=== PATIENT | female | born 1990 | race Caucasian/White ===

== ENCOUNTER → 2018-05-17 11:44 | Outpatient (CLI) | payer BC, SELFPAY ==
[2018-05-17 13:16] LABS: hCG Titer Quant., Serum 53141 mIU/mL (<9 non-preg)
== END ==
PROVIDERS: Family Provider Family Medicine; PCP Family Medicine; Referring Provider Obstetrics & Gynecology; Visit Provider Obstetrics & Gynecology
DX: Z78.9 Other specified health status (principal)
CPT/HCPCS: 36415; 84702

== ENCOUNTER → 2018-05-24 07:33 | Outpatient (CLI) | payer BC, SELFPAY ==
--- NOTE | 2018-05-24 07:54 | US_ITS ---
STUDY: FIRST TRIMESTER OBSTETRICAL ULTRASOUND REASON FOR EXAM: Female, 28 years old. dating. LMP: Unknown. TECHNIQUE: Transabdominal TECHNICAL QUALITY: Adequate. PRIOR ULTRASOUND: None. FINDINGS: There is visualization of a single gestational sac in a normal intrauterine position. The mean sac diameter (MSD) measures 2.97 cm, indicating an estimated gestational age (EGA) of 8 weeks, 2 days. The gestational sac shape is within normal limits. There is a visualized yolk sac. The yolk sac measures 3.2 mm. The placenta is non-visualized. There is visualization of a live embryo. The crown-rump length (CRL) measures 1.37 cm, indicating an estimated gestational age (EGA) of 7 weeks, 5 days. There is demonstrated cardiac activity with a heart rate of 147 bpm. The estimated gestation age (EGA) by US is 8 weeks, 0 days. The estimated date of delivery (JOSEPHINE) by US is January 03, 2019. The uterus measures 10.1 cm x 7.5 cm x 6.4 cm. There is a 9 mm x 11 mm x 9 mm fundal fibroid. The cervix is closed. The right ovary measures 4.5 cm x 2.7 cm x 2.9 cm. There is a 2.4 cm x 1.8 cm x 1.8 cm cyst in the right ovary. There is no visualized right adnexal mass or complex lesion. The left ovary measures 2.4 cm x 2.5 cm x 1.8 cm. There is no left ovarian cyst. There is no visualized left adnexal mass or complex lesion. There is no fluid in the cul de sac. US/Init OB < 14Wks US IMPRESSION: There is a single live intrauterine gestation with a mean gestational age of 8 weeks. 2.4 cm x 1.8 cm x 1.8 cm right ovarian cyst. Electronically Signed: Jez Rebollar MD at 9:03 EST Tel [phone], Service support ,
== END ==
PROVIDERS: Family Provider Family Medicine; PCP Family Medicine; Visit Provider Obstetrics & Gynecology
DX: Z34.01 Encounter for supervision of normal first pregnancy, first trimester (principal)
CPT/HCPCS: 76801

== ENCOUNTER → 2018-05-25 17:34 | Outpatient (CLI) | payer BC, SELFPAY ==
[2018-05-25 20:52] LABS: Chlamydia Trachomatis by PCR Negative (Negative); Neisserai gonorrhoeae by PCR Negative (Negative); Probe Check PASS; Sample Adequacy Control PASS; Specimen Processing Control PASS
[2018-06-02 10:19] LABS: HPV APTIMA, High Risk Negative (Negative)
[2018-06-02 10:25] LABS: HPV Reflexed? YES, CHARGE PATIENT
== END ==
PROVIDERS: Family Provider Family Medicine; PCP Family Medicine; Referring Provider Obstetrics & Gynecology; Visit Provider Obstetrics & Gynecology
DX: Z34.90 Encounter for supervision of normal pregnancy, unspecified, unspecified trimester (principal); Z12.4 Encounter for screening for malignant neoplasm of cervix
CPT/HCPCS: 87491; 87591; 87624; 88175; G0145

== ENCOUNTER → 2018-06-22 14:55 | Outpatient (CLI) | payer BC, SELFPAY ==
[2018-06-22 14:16] VITALS: BMI 20.4
[2018-06-22 16:52] LABS: Absolute Lymphocyte Count 2.58 X10^3/ul (0.83-4.51); Basophil# 0.02 X10^3/uL; Basophil% 0.2 % (0-1); Eosinophil# 0.13 X10^3/uL; Hematocrit 37.6 % (37-47); Hemoglobin 12.6 g/dl (12.0-15.0); Lymphocyte # 2.58 X10^3/ul (4.0); Lymphocyte % 20.5 % (19-41); Mean Corp Hgb Conc 33.5 g/gl (32-36); Mean Corpuscular Hgb 29.9 pg (27.0-32.0); Mean Corpuscular Volume 89.3 fL (81-99); Mean Platelet Vol. 10.5 fl (6.2-12.0); Monocyte# 0.81 X10^3/uL; Monocyte% 6.4 % (0-10); Neutrophil # 9.02 X10^3/uL (2.7-7.7); Neutrophil % 71.6 % (47-70); Platelet Count 320 K/mm3 (150-450); RBC Distribution Width CV 12.5 % (11.6-14.6); Red Blood Count 4.21 M/mm3 (4.2-5.4); White Blood Count 12.6 K/mm3 (4.4-11.0)
[2018-06-22 17:00] LABS: POSITIVE COUNT NO; POSITIVE DIFFERENTIAL NO; POSITIVE MORPHOLOGY NO
[2018-06-22 18:12] LABS: HIV - WCH Non-Reactive (Nonreactive); Rubella IgG > 500.0 IU/mL
[2018-06-24 08:12] LABS: HEPATITIS B SURFACE AG Negative (Negative)
[2018-06-25 02:33] LABS: Rapid Plasmin Reagin (RPR) NONREACTIVE (NONREACTIVE)
== END ==
PROVIDERS: Obstetrics & Gynecology; Family Provider Family Medicine; PCP Family Medicine; Referring Provider Nurse Practitioner Women's Health; Visit Provider Nurse Practitioner Women's Health
DX: Z34.91 Encounter for supervision of normal pregnancy, unspecified, first trimester (principal)
CPT/HCPCS: 36415; 85025; 86592; 86703; 86762; 86850; 86900; 87340

== ENCOUNTER → 2018-07-23 09:02 | Outpatient (CLI) | payer BC, SELFPAY ==
[2018-07-23 08:53] VITALS: BMI 20.4
== END ==
PROVIDERS: Family Provider Family Medicine; PCP Family Medicine; Referring Provider Obstetrics & Gynecology; Visit Provider Obstetrics & Gynecology
DX: Z34.90 Encounter for supervision of normal pregnancy, unspecified, unspecified trimester (principal)
CPT/HCPCS: 36415; 87086; 87088

== ENCOUNTER → 2018-10-05 07:57 | Outpatient (CLI) | payer BC, SELFPAY ==
[2018-09-17 08:59] VITALS: BMI 20.4
--- NOTE | 2018-10-05 08:02 | US_ITS ---
STUDY: SECOND AND THIRD TRIMESTER OBSTETRICAL ULTRASOUND - LIMITED REASON FOR EXAM: Female, 28 years old. Follow-up low-lying placenta. LMP: Unknown. Estimated due date January 03, 2019 provided by prior study. PRIOR ULTRASOUND: First or Mr. OB ultrasound May 24, 2018. TECHNIQUE: Transabdominal and Transvaginal, the latter used in particular to optimize detail at the cervix. TECHNICAL QUALITY: Adequate. FINDINGS: There is a single intrauterine fetus. The fetus is in a cephalic presentation. There is demonstrated cardiac activity with a heart rate of 127 bpm. There is a normal amniotic fluid volume. The largest amniotic fluid pocket measures 3.7 cm. The amniotic fluid index (ITALIA) is 10.1 cm. The placenta is posterior and low lying but not previa in location. The inferior margin of the placenta is 1.6 cm from the internal cervical os. There are Grade 0-1 placental changes. The cervix measures 4.1 cm in length and is closed. Bilateral adnexa are not visualized. BIOMETRY: BPD: 6.18 cm: 25 weeks, 1 days HC: 24.91 cm: 27 weeks, 1 days AC: 22.77 cm: 27 weeks, 2 days FL: 5.03 cm: 27 weeks, 1 days CI: 74% FL/BPD: 81% FL/AC: 22% HC/AC: 1.09 age by prior US: 27 weeks, 1 days. JOSEPHINE by prior US: January 03, 2019. age by current US: 26 weeks, 5 days. JOSEPHINE by current US: January 06, 2019. Estimated weight: 1008 grams, +/- 147 grams, 31 percentile. US/OB Limited With Biometrics IMPRESSION: 1. Single living intrauterine fetus in cephalic presentation. Estimated gestational age of 26 weeks, 5 days. Estimated delivery by today's study is January 06, 2019. 2. Grade 0-1 severe placenta is low lying, its inferior margin 1.6 cm from the internal cervical os. 3. Cervix is closed. Cervical length is 4.1 cm. 4. Normal amniotic fluid volume with an index of 10.1 cm. 5. Estimated weight is 1008 g. Electronically Signed: Clinton Irwin MD at 15:40 EDT , Service support ,
== END ==
PROVIDERS: Family Provider Family Medicine; PCP Family Medicine; Referring Provider Obstetrics & Gynecology; Visit Provider Obstetrics & Gynecology
DX: O44.42 Low lying placenta NOS or without hemorrhage, second trimester (principal); Z3A.00 Weeks of gestation of pregnancy not specified
CPT/HCPCS: 76816

== ENCOUNTER → 2018-10-15 09:30 | Outpatient (CLI) | payer BC, SELFPAY ==
[2018-10-15 08:44] VITALS: BMI 20.4
[2018-10-15 11:43] LABS: Absolute Lymphocyte Count 1.88 X10^3/ul (0.83-4.51); Absolute Neutrophil Count 10.5 X10^3/uL (2.0-7.7); Basophil# 0.02 X10^3/uL; Basophil% 0.1 % (0-1); Eosinophil# 0.27 X10^3/uL; Hematocrit 36.7 % (37-47); Hemoglobin 12.2 g/dl (12.0-15.0); Lymphocyte # 1.88 X10^3/ul (4.0); Lymphocyte % 13.8 % (19-41); Mean Corp Hgb Conc 33.2 g/gl (32-36); Mean Corpuscular Hgb 30.7 pg (27.0-32.0); Mean Corpuscular Volume 92.4 fL (81-99); Mean Platelet Vol. 10.1 fl (6.2-12.0); Monocyte% 6.6 % (0-10); Neutrophil % 76.8 % (47-70); Platelet Count 242 K/mm3 (150-450); RBC Distribution Width CV 13.4 % (11.6-14.6); RBC Distribution Width SD 44.7 fl (35.1-43.9); Red Blood Count 3.97 M/mm3 (4.2-5.4); White Blood Count 13.7 K/mm3 (4.4-11.0)
[2018-10-15 11:57] LABS: POSITIVE COUNT NO; POSITIVE DIFFERENTIAL NO; POSITIVE MORPHOLOGY NO
[2018-10-15 12:21] LABS: Glucose Challenge Gest 1H 50g 83 mg/dL (70-140)
== END ==
PROVIDERS: Family Provider Family Medicine; PCP Family Medicine; Referring Provider Obstetrics & Gynecology; Visit Provider Obstetrics & Gynecology
DX: Z34.90 Encounter for supervision of normal pregnancy, unspecified, unspecified trimester (principal)
CPT/HCPCS: 36415; 82950; 85025

== ENCOUNTER → 2018-11-18 12:23 | Outpatient (CLI) | payer BC, SELFPAY ==
[2018-11-12 08:52] VITALS: BMI 20.4
--- NOTE | 2018-11-18 12:30 | US_ITS ---
STUDY: SECOND AND THIRD TRIMESTER OBSTETRICAL ULTRASOUND - LIMITED REASON FOR EXAM: Female, 28 years old. Low-lying placenta. Obstetric sonography performed October 05, 2018 indicating low-lying placenta with margin located 1.6 cm from the internal cervical os. Follow-up exam. LMP: Not provided. PRIOR ULTRASOUND: October 05, 2018. TECHNIQUE: Transabdominal and Transvaginal TECHNICAL QUALITY: Adequate. FINDINGS: There is a single intrauterine fetus. The fetus is in a cephalic presentation. There is demonstrated cardiac activity with a heart rate of 139-158 bpm. There is a normal amniotic fluid volume. The largest amniotic fluid pocket measures 2.9 cm. The amniotic fluid index (ITALIA) is 9.1 cm. The placenta is posterior in location and is not low lying. On the current exam the placental margin is positioned approximately 3 cm away from the internal cervical os. There are Grade 1 placental changes. The maternal cervix is long and closed measuring 3.31 cm in length. BIOMETRY: BPD: 8.08 cm: 32 weeks, 4 days HC: 30.46 cm: 34 weeks, 0 days AC: 30.86 cm: 34 weeks, 6 days FL: 6.49 cm: 33 weeks, 4 days Age by LMP: 33 weeks, 3 days. JOSEPHINE by LMP: January 03, 2019. age by current US: 33 weeks, 6 days. JOSEPHINE by current US: December 31, 2018.. Estimated weight: 2351) grams, +/- 343 grams, 63 percentile. anatomic survey was not performed on this relatively late gestation. However, no incidental anatomic abnormality is identified. US/OB Limited With Biometrics IMPRESSION: Viable, alfaro, cephalic presentation intrauterine . Please see above. On this current exam the placental margin is positioned approximately 3 cm away from the internal cervical os. The maternal cervix is long and closed measuring 3.31 cm in length. Electronically Signed: Nikolas Hannah MD at 12:51 EDT , Service support ,
== END ==
PROVIDERS: Family Provider Family Medicine; PCP Family Medicine; Referring Provider Nurse Practitioner Women's Health; Visit Provider Nurse Practitioner Women's Health
DX: O44.43 Low lying placenta NOS or without hemorrhage, third trimester (principal); Z3A.32 32 weeks gestation of pregnancy
CPT/HCPCS: 76816

== ENCOUNTER → 2018-11-29 08:54 | Outpatient (CLI) | payer BC, SELFPAY ==
[2018-11-26 08:56] VITALS: BMI 20.4
--- NOTE | 2018-11-29 08:56 | US_ITS ---
STUDY: SECOND AND THIRD TRIMESTER OBSTETRICAL ULTRASOUND - LIMITED REASON FOR EXAM: Female, 28 years old. Routine survey. LMP: March 29, 2018. PRIOR ULTRASOUND: Comparison is made with prior study dated November 18, 2018. TECHNIQUE: Transabdominal TECHNICAL QUALITY: Adequate. FINDINGS: There is a single intrauterine fetus. The fetus is in a cephalic presentation. There is demonstrated cardiac activity with a heart rate of 143 bpm. There is a normal amniotic fluid volume. The largest amniotic fluid pocket measures 3.3 cm. The amniotic fluid index (ITALIA) is 12.4 cm. The placenta is posterior in location and is not low lying. There are Grade 1 placental changes. The cervix measures 3.1 cm in length. BIOMETRY: BPD: 8.5 cm: 34 weeks, 2 days HC: 31.59 cm: 35 weeks, 4 days AC: 32.48 cm: 36 weeks, 3 days FL: 6.85 cm: 35 weeks, 2 days Age by LMP: 35 weeks, 0 days. JOSEPHINE by LMP: January 03, 2019. age by prior US: 35 weeks, 3 days. JOSEPHINE by prior US: December 31, 2018. age by current US: 35 weeks, 3 days. JOSEPHINE by current US: December 31, 2018. Estimated weight: 2757 grams, +/- 403 grams, 69 percentile. US/OB Limited With Biometrics IMPRESSION: Single live intrauterine gestation with a mean gestational age of 35 weeks and 3 days. There has been good interval growth since prior study. Electronically Signed: Jez Rebollar, at 15:27 EDT , Service support ,
== END ==
PROVIDERS: Family Provider Family Medicine; PCP Family Medicine; Referring Provider Obstetrics & Gynecology; Visit Provider Obstetrics & Gynecology
DX: O26.843 Uterine size-date discrepancy, third trimester (principal); Z3A.35 35 weeks gestation of pregnancy
CPT/HCPCS: 76816

== ENCOUNTER → 2018-12-06 09:16 | Outpatient (CLI) | payer BC, SELFPAY ==
[2018-12-04 08:37] VITALS: BMI 20.4
[2018-12-04 15:55] LABS: Mucous, Urine 0 SEEN /hpf (<or=2+)
[2018-12-04 16:20] LABS: Color, Urine Yellow (Yellow); Glucose, Dipstick Normal (Normal); Ketone-Dipstick Negative (Negative); Leukocyte Esterase-Dipstick 25 /ul (Negative); Nitrite-Dipstick Negative (Negative); Occult Blood-Urine 25 /ul (Negative); Protein-Dipstick Negative (Negative); Urine Bilirubin Dipstick Negative (Negative); Urine Clarity Sl. Cloudy (Clear); Urine Urobilinogen Normal (Normal)
[2018-12-04 16:33] LABS: Bacteria 1+ /hpf (None Seen); Red Blood Cells-Urine 0-5 SEEN /hpf (0-5); Squamous Epithelial Cells - UA 5-10 SEEN /hpf (5-10); White Blood Cells 0-5 SEEN /hpf (0-5)
== END ==
PROVIDERS: Family Provider Family Medicine; PCP Family Medicine; Referring Provider Physician Assistant Medical; Visit Provider Physician Assistant Medical
DX: R30.0 Dysuria (principal)
CPT/HCPCS: 81001; 87086

== ENCOUNTER → 2018-12-08 17:15 | Outpatient (CLI) | payer BC, SELFPAY ==
[2018-12-08 08:51] VITALS: BMI 20.4
== END ==
PROVIDERS: Family Provider Family Medicine; PCP Family Medicine; Referring Provider Obstetrics & Gynecology; Visit Provider Obstetrics & Gynecology
DX: Z34.93 Encounter for supervision of normal pregnancy, unspecified, third trimester (principal)
CPT/HCPCS: 87081

== ENCOUNTER 2019-01-05 13:00 | Inpatient (IN) | payer BC, SELFPAY ==
[2018-11-12 08:52] VITALS: BMI 20.4
[2018-12-31 08:40] VITALS: BMI 20.4
[2019-01-05 12:35] VITALS: BMI 26.7
[2019-01-05 13:01] LABS: ROM Internal Control Test YES-OK TO RESULT pt. (Internal QC); ROM Patient Test POSITIVE (Negative)
[2019-01-05] MEDS: Lactated Ringers 1,000 ML 50 ML IV ×2 (14:05→21:13)
[2019-01-05 14:15] LABS: Absolute Lymphocyte Count 1.83 X10^3/ul (0.83-4.51); Absolute Neutrophil Count 11.7 X10^3/uL (2.0-7.7); Basophil# 0.02 X10^3/uL; Basophil% 0.1 % (0-1); Eosinophil# 0.08 X10^3/uL; Eosinophils% 0.5 % (0-5); Hematocrit 38.9 % (37-47); Hemoglobin 13.3 g/dl (12.0-15.0); Lymphocyte # 1.83 X10^3/ul (4.0); Lymphocyte % 12.4 % (19-41); Mean Corp Hgb Conc 34.2 g/gl (32-36); Mean Corpuscular Hgb 30.9 pg (27.0-32.0); Mean Corpuscular Volume 90.5 fL (81-99); Mean Platelet Vol. 10.7 fl (6.2-12.0); Monocyte# 0.96 X10^3/uL; Monocyte% 6.5 % (0-10); Neutrophil # 11.71 X10^3/uL (2.7-7.7); Neutrophil % 79.5 % (47-70); POSITIVE COUNT NO; POSITIVE DIFFERENTIAL NO; POSITIVE MORPHOLOGY NO; Platelet Count 223 K/mm3 (150-450); RBC Distribution Width CV 13.1 % (11.6-14.6); RBC Distribution Width SD 42.8 fl (35.1-43.9); White Blood Count 14.8 K/mm3 (4.4-11.0)
[2019-01-05] MEDS: Oxytocin 30 units/NS 500 ml 30 UNITS/500 ML IV.SOLN IV (15:11)
--- NOTE | 2019-01-05 17:42 | PCM.HP.OB ---
- Problem List (1) PROM with onset of labor more than 24 hours following rupture Status: Acute (2) Status: Acute Qualifiers: Comment: carrier screening declined. nl NIPT. afp nl. mfm ultrasound (3) Supervision of normal Status: Acute Qualifiers: Comment: PRR JOSEPHINE 01/03/19 girl name surprise Yaw History Date of Admission: 01/05/19 Final JOSEPHINE: 01/03/19 Gestational age: 40 Weeks and 2 Days History of this : This is a 28 year-old, at 40 weeks gestational age presents with spontaneous rupture membranes. Patient is unclear exactly when this started as it has been small amounts but most likely started Thursday afternoon. She denies any fevers abdominal pain is only had small amounts of clear loss of fluid but has a positive ROM plus test. She denies any significant contractions or vaginal bleeding admits good movement. she has Had an uncomplicated . Allergies No Known Allergies Allergy (Verified 01/05/19 12:36) Home Medications: Home Medications Vits [Prenatabs FA] 1 tab PO DAILY 01/05/19 Smoking Status: Never smoker Alcohol: None Number of Fetus(es): 1 Heart Tracin- 120 moderate variability reactive no decelerations category I tracing [place]wood: no regular History Past Pregnancies: Past Pregnancies Delivery Date Name GA/Weeks Outcome Route Weight Gender Labor Length Anesthesia Delivery Location Provider FOB Labs: Mom's Labs & Results 01/05/19 01/05/19 01/05/19 12:25 14:05 14:05 WBC 14.8 H RBC 4.30 Hgb 13.3 Hct 38.9 MCV 90.5 MCH 30.9 MCHC 34.2 RDW 13.1 RDW Differential 42.8 Plt Count 223 MPV 10.7 Immature Gran % (Auto) 1.000 H Neut % (Auto) 79.5 H Lymph % (Auto) 12.4 L Payne % (Auto) 6.5 Eos % (Auto) 0.5 Baso % (Auto) 0.1 Absolute Neuts (auto) 11.7 H Absolute Lymphs (auto) 1.83 Total Counted Not Reportable Vag Amniotic Fld Detect POSITIVE H Blood Type B POSITIVE Antibody Screen NEGATIVE Course Did the patient receive Yes care? Labs Blood Type: B RH: POSITIVE RPR/VDRL/Syphilis Nonreactive Rubella status Immune HbSAg Negative Date Done: 06/22/18 Chlamydia Negative Gonorrhea Negative HIV/AIDS Non-Reactive Group B Strep: Negative Current Obstetrical History Gestational Diabetes No Incompetent Cervix No Infertility No IUGR No Macrosomia No Hypertension/Pre-eclampsia No Placenta Previa/Abruption Yes: low lye on placenta but now up PTL/PROM No Uterine anomaly No Oligohydramnios No Polyhydramnios No Multiple gestation No Past Medical History Asthma No Diabetes No Hypertension No Heart disease No Mitral valve prolapse No Neurologic/Seizure disorder/ No Migraines Kidney disease No Liver disease No Varicosities No Clotting disorders/Hx of DVT No Thyroid Dysfunction No Other medical diseases No Psychiatric disorders No Major trauma No Abnormal PAP smear No Sleep apnea No Mammogram in the last 2 years No Medications Taken During Reason for taking medication [ none none] Social History Marital Status: Alleged father Yaw Hx Smoking No Smoking Status Never smoker What date/time did you last none use any of the above? Expected Infant Delivery Method: Spontaneous Vaginal Review of Systems Constitutional: Denies: Fever, Malaise Eyes: Denies: Blurred vision, Vision Change HEENT: Denies: Head Aches, Visual Changes Cardiovascular: Denies: Chest Pain, Palpitations Respiratory: Denies: Cough, Shortness of Breath, Wheezing Gastrointestinal: Denies: Abdominal Pain, Diarrhea, Nausea, Vomiting Genitourinary: Denies: Dysuria, Hematuria Musculoskeletal: Denies: Joint Pain, Muscle pain Skin: Denies: Lesions, Rash Neurological: Denies: Blurred vision, Focal weakness, Headaches Psychiatric: Denies: Anxiety, Depression Endocrine: Denies: Heat/ Cold Intolerance Hematologic/ Lymphatic: Denies: Easy Bruising, Easy Bleeding Physical Exam General: Alert, Cooperative, No apparent distress HEENT: Atraumatic, Normocephalic. Negative for: Thyromegaly, Lymphadenopathy Cardiovascular: Regular rate Lungs: Normal air movement Abdomen: Soft, Non Tender, Gravid Neurological: Deep Tendon Reflexes 2+/4 and Symmetrical, Neuro grossly intact. Negative for: Clonus [employer] RE[employer]ER: Normal external genitalia. Negative for: Vulvar lesions Estimated gestational size: Appropriate for gestational size Presentation: Cephalic Cervix Dilation (cm): 2 Assessment/Plan All Active Problems (Last Reviewed 12/31/18 @ 08:39 by Julieta Kent) PROM with onset of labor more than 24 hours following rupture (Acute) (Acute) Supervision of normal (Acute) AFP negative (Resolved) Low lying placenta nos or without hemorrhage, second trimester (Resolved) This is a 28 year-old, at 40 weeks gestational age with PROM. Patient presents PROM, plan management for , pitocin for IOL. Pain management: plans epidural. GBS negative. Management of any complications: No signs or symptoms of chorioamnionitis, discussed with the patient indications for starting antibiotics which include maternal fever plus an additional factor. Continue expectant management I have reviewed the [facility] and made any clinically relevant updates.
[2019-01-05] MEDS: fentaNYL-bupivacaine (epidural) 100 ML BAG EPIDURAL (22:05)
[2019-01-06] MEDS: Lactated Ringers 1,000 ML 50 ML IV (02:26)
[2019-01-06] MEDS: fentaNYL-bupivacaine (epidural) 100 ML BAG EPIDURAL (02:26)
[2019-01-06] MEDS: Ondansetron 4 MG/2 ML Vial IV (04:41)
[2019-01-06] MEDS: Oxytocin 30 units/NS 500 ml 30 UNITS/500 ML IV.SOLN 334 UNITS IV (05:08)
--- NOTE | 2019-01-06 05:39 | PCM.OPRPT ---
Problem List (1) PROM with onset of labor more than 24 hours following rupture Status: Acute (2) Status: Acute Qualifiers: Comment: carrier screening declined. nl NIPT. afp nl. mfm ultrasound (3) Supervision of normal Status: Acute Qualifiers: Comment: PRR JOSEPHINE 01/03/19 girl name surprise Yaw Vaginal Delivery Maternal Presentation: Spontaneous Rupture of Membranes 28-year-old G1, P0 at 40 weeks presents with spontaneous rupture membranes x48 hours with no onset of contractions. Amniotic Membrane Rupture Type: Spontaneous at home Amniotic Fluid Description: Clear Final JOSEPHINE: 01/03/19 Gestational age: 40 Weeks and 3 Days Date of Procedure: 01/06/19 Pre-Operative Diagnosis: ruptured membranes Post-Operative Diagnosis: Same Surgery/ Procedure Performed: Spontaneous Vaginal Delivery Type of Anesthesia: Epidural Description of Procedure: Patient began pushing and delivered the head in the [HIRAM] presentation. The head was delivered atraumatically . The anterior and posterior shoulders delivered without complication followed by the rest of the infant and the was placed on the maternal abdomen. Delayed cord clamping was employed for approximately 60 seconds. Cord was clamped and cut and gentle traction was applied to the cord and the placenta delivered spontaneously immediately following it was noted to be intact with three-vessel cord. The perineum and vagina were inspected and noted to have a second-degree perineal laceration that was repaired in the usual fashion with 3-0 Vicryl repeat. EBL was 300 cc. Patient and infant tolerated delivery well. Presentation: HIRAM Placental Delivery Description: Spontaneous Placenta Disposition: [facility] Cord Vessel Description: 3 Vessels Cord Entanglement: None Estimated Blood Loss: 300 Infant A gender: Female (1 minute): 8 (5 minute): 9 Episiotomy Description: None Laceration: Perineal Extension/lac, 2nd degree Medications given after delivery: IV Pitocin Complications: None
[2019-01-06] MEDS: Naproxen 250 MG Tablet 500 MG PO (06:01)
[2019-01-06] MEDS: Oxytocin 30 units/NS 500 ml 30 UNITS/500 ML IV.SOLN 167 UNITS IV (06:09)
[2019-01-06] MEDS: Methylergonovine 0.2 MG/ML Ampul IM (06:40)
[2019-01-06] MEDS: Lactated Ringers 500 ML 999 ML IV (07:10)
[2019-01-06] MEDS: Carboprost Tromethamine 250 MCG/ML Ampul IM (07:15)
[2019-01-06 07:57] LABS: Absolute Lymphocyte Count 1.23 X10^3/ul (0.83-4.51); Absolute Neutrophil Count 21.9 X10^3/uL (2.0-7.7); Eosinophil# 0.01 X10^3/uL; Hemoglobin 12.3 g/dl (12.0-15.0); Lymphocyte # 1.23 X10^3/ul (4.0); Lymphocyte % 5.2 % (19-41); Mean Corp Hgb Conc 34.2 g/gl (32-36); Mean Corpuscular Hgb 31.3 pg (27.0-32.0); Mean Corpuscular Volume 91.6 fL (81-99); Mean Platelet Vol. 10.9 fl (6.2-12.0); Monocyte# 0.45 X10^3/uL; Monocyte% 1.9 % (0-10); Neutrophil # 21.87 X10^3/uL (2.7-7.7); Neutrophil % 92.7 % (47-70); Platelet Count 170 K/mm3 (150-450); RBC Distribution Width CV 13.3 % (11.6-14.6); RBC Distribution Width SD 44.3 fl (35.1-43.9); Red Blood Count 3.93 M/mm3 (4.2-5.4); White Blood Count 23.6 K/mm3 (4.4-11.0)
[2019-01-06 07:59] LABS: Differential Indicated SCAN CRITERIA MET; POSITIVE COUNT NO; POSITIVE DIFFERENTIAL YES; POSITIVE MORPHOLOGY NO
[2019-01-06 08:35] LABS: Platelet Estimate ADEQUATE (ADEQ); Red Cell Morphology NORM C+C NORMAL (NORM C&C)
[2019-01-06 13:30] VITALS: BP 112/67; PULSE 76; RESP 16; TEMP 36.7; O2SAT 98
[2019-01-06 16:39] VITALS: BP 93/47; PULSE 66; RESP 16; TEMP 36.8; O2SAT 99
[2019-01-06 21:30] VITALS: BP 106/62; PULSE 74; RESP 16; TEMP 36.6; O2SAT 98
[2019-01-06] MEDS: Acetaminophen 500 MG Tablet 1000 MG PO (21:44)
[2019-01-07 00:20] VITALS: BP 98/49; PULSE 74; RESP 16; TEMP 36.6
[2019-01-07 03:55] VITALS: BP 111/66; PULSE 77; RESP 18; TEMP 37
[2019-01-07 08:45] VITALS: BP 94/58; PULSE 71; RESP 16; TEMP 37.1; O2SAT 95
[2019-01-07] MEDS: Senna/Docusate Sodium 1 Tablet PO (10:23)
[2019-01-07] MEDS: Naproxen 250 MG Tablet 500 MG PO (14:07)
[2019-01-07 14:10] VITALS: BP 100/62; PULSE 84; TEMP 37; O2SAT 94
--- NOTE | 2019-01-07 16:28 | PCM.PN.OB ---
Patient Problems: Active and Suspected Problems (Last Reviewed 12/31/18 @ 08:39 by Julieta Kent) PROM with onset of labor more than 24 hours following rupture (Acute) Subjective: doing well no complaints pain controlled no CP SOB N V ambulating well tolerating po lochia moderate, going well - Physical Exam General: Alert, Oriented x3 Vital Signs Temp Pulse Resp BP Pulse Ox 98.6 F 84 16 100/62 94 01/07/19 14:10 01/07/19 14:10 01/07/19 08:45 01/07/19 14:10 01/07/19 14:10 Oxygen Delivery Method Room Air Weight: 171 lb Body Mass Index (BMI) 26.7 Intake and Output for Last 24 Hours 01/05/19 01/06/19 01/07/19 23:59 23:59 23:59 Intake Total 440 / 440 3480 / 3480 Output Total 600 / 600 1500 / 1500 Balance -160 / -160 1979 / 1979 Medical Necessity - Tobacco Use Smoking Status: Never smoker Assessment/Plan All Active Problems (Last Reviewed 12/31/18 @ 08:39 by Julieta Kent) PROM with onset of labor more than 24 hours following rupture (Acute) (Acute) Supervision of normal (Acute) AFP negative (Resolved) Low lying placenta nos or without hemorrhage, second trimester (Resolved) s/p PPD # 1 1. routine post delivery care 2. breast feeding- support given 3. rh positive 4. rubella immune
--- NOTE | 2019-01-07 16:31 | DCINST_ITS ---
Discharge Diet: No Restrictions Discharge Activity: Return to Normal Activity, May not drive while taking narcotic pain medications., May Shower May resume sexual activity in: 4-6 weeks Call your doctor if your incision/area has: Continuous Slow Oozing, Sudden Increased Bleeding, Increased Pain/ Swelling, Increased Redness, Foul Smelling Discharge Additional Instructions: If you experience any of the following, contact your healthcare provider. * Bleeding that soaks a pad every hour for 2 hours * Fever 100.4 or higher * Unrelieved incision or abdominal pain * Swelling, redness, discharge or bleeding from your incision or episiotomy site * Your incision begins to separate * Problems urinating (including inability to urinate or burning while urinating). * Visual changes * Severe headache * Flu-like symptoms * Pain or redness in one of both of your breasts * Pain, warmth, tenderness or swelling in your legs, especially the calf area * Frequent nausea and vomiting * Symptoms of depression or anxiety If you experience any of the following, call 911 or go to the nearest Emergency Room. * Chest pain * Problems breathing * Seizure activity * Partial or complete paralysis of a body part, slurred speech, weakness or drooping of the face, or a sudden inability to walk or hold your balance Allergies/Adverse Reactions: Allergies No Known Allergies Allergy (Verified 01/05/19 12:36) Medications to take at Discharge Vits [Prenatabs FA] 1 tab PO DAILY 01/05/19 Please Follow Up With: Peace Bernal MD - [phone] When: Call to make an appointment with your doctor in 6 weeks. If you had elevated Blood pressure or 4th degree laceration you will need to be seen in 2 weeks. Primary Care Physician: Rob Randhawa MD [Primary Care Provider] - Test Results: Test results from this visit will be discussed in further detail at your follow- up appointment, if applicable.
--- NOTE | 2019-01-07 16:31 | PCM.DCVAG ---
Discharge Diet: No Restrictions Discharge Activity: Return to Normal Activity, May not drive while taking narcotic pain medications., May Shower May resume sexual activity in: 4-6 weeks Call your doctor if your incision/area has: Continuous Slow Oozing, Sudden Increased Bleeding, Increased Pain/ Swelling, Increased Redness, Foul Smelling Discharge Additional Instructions: If you experience any of the following, contact your healthcare provider. Bleeding that soaks a pad every hour for 2 hours Fever 100.4 or higher Unrelieved incision or abdominal pain Swelling, redness, discharge or bleeding from your incision or episiotomy site Your incision begins to separate Problems urinating (including inability to urinate or burning while urinating). Visual changes Severe headache Flu-like symptoms Pain or redness in one of both of your breasts Pain, warmth, tenderness or swelling in your legs, especially the calf area Frequent nausea and vomiting Symptoms of depression or anxiety If you experience any of the following, call 911 or go to the nearest Emergency Room. Chest pain Problems breathing Seizure activity Partial or complete paralysis of a body part, slurred speech, weakness or drooping of the face, or a sudden inability to walk or hold your balance Allergies/Adverse Reactions: Allergies No Known Allergies Allergy (Verified 01/05/19 12:36) Medications to take at Discharge Vits [Prenatabs FA] 1 tab PO DAILY 01/05/19 Please Follow Up With: Peace Bernal MD - [phone] When: Call to make an appointment with your doctor in 6 weeks. If you had elevated Blood pressure or 4th degree laceration you will need to be seen in 2 weeks. Primary Care Physician: Rob Randhawa MD [Primary Care Provider] - Test Results: Test results from this visit will be discussed in further detail at your follow-up appointment, if applicable.
[2019-01-07 17:20] VITALS: BP 105/39; PULSE 90; RESP 18; TEMP 36.6
[2019-01-07] MEDS: Acetaminophen 500 MG Tablet 1000 MG PO (19:18)
[2019-01-07 20:25] VITALS: BP 98/64; PULSE 81; RESP 18; TEMP 36.8
[2019-01-08 02:00] VITALS: BP 105/55; PULSE 70; RESP 18; TEMP 37.2
[2019-01-08 08:00] VITALS: BP 106/60; PULSE 81; RESP 17; TEMP 36.7; O2SAT 99
[2019-01-08] MEDS: Senna/Docusate Sodium 1 Tablet PO (08:49)
--- NOTE | 2019-01-12 16:49 | NURSING ---
No answer, left voicemail on follow up phone call
== END 2019-01-08 10:10 | disposition home or self-care (01) | DRG 806 ==
LOC: WPOUT 13:04 → WP 13:04
PROVIDERS: Admitting Provider Obstetrics & Gynecology; Family Provider Family Medicine; PCP Family Medicine; Referring Provider Obstetrics & Gynecology; Visit Provider Obstetrics & Gynecology
DX: O42.12 Full-term premature rupture of membranes, onset of labor more than 24 hours following rupture (principal); O44.42 Low lying placenta NOS or without hemorrhage, second trimester; Z37.0 Single live birth; O70.1 Second degree perineal laceration during delivery; Z3A.40 40 weeks gestation of pregnancy
CPT/HCPCS: 59050; 76815; 84112; 85025; 86850; 86900; 99218; J7120; G0378; J2405

== ENCOUNTER → 2019-01-24 08:00 | Outpatient (CLI) | payer BC, SELFPAY ==
[2019-01-05 12:35] VITALS: BMI 26.7
== END ==
PROVIDERS: Family Provider Family Medicine; PCP Family Medicine; Visit Provider Obstetrics & Gynecology
DX: Z39.1 Encounter for care and examination of lactating mother (principal)
CPT/HCPCS: 96152

== ENCOUNTER → 2020-02-16 13:44 | Outpatient (CLI) | payer BC, SELFPAY ==
[2019-02-18 10:38] VITALS: BMI 26.7
[2020-02-16 15:09] LABS: hCG Titer Quant., Serum 3 mIU/mL (1-3)
== END ==
PROVIDERS: Referring Provider Obstetrics & Gynecology; Visit Provider Obstetrics & Gynecology
DX: O20.0 Threatened abortion (principal); Z3A.00 Weeks of gestation of pregnancy not specified
CPT/HCPCS: 36415; 84702; 86850; 86900; 86901

== ENCOUNTER → 2020-06-28 13:00 | Outpatient (CLI) | payer BC, SELFPAY ==
[2020-06-28 10:32] VITALS: BMI 21.7
[2020-06-28 14:27] LABS: Amphetamine Urine VISTA NEGATIVE (<1000 ng/mL); Barbiturate Urine VISTA NEGATIVE (< 200 ng/mL); Benzodiazepine Urine VISTA NEGATIVE (< 200 ng/mL); Cocaine Urine VISTA NEGATIVE (< 300 ng/mL); Ecstacy Urine VISTA NEGATIVE (< 500 ng/mL); Methadone Urine VISTA NEGATIVE (< 300 ng/mL); PCP Urine VISTA NEGATIVE (< 25 ng/mL); THC Urine VISTA NEGATIVE (< 50 ng/mL); Vista UDS pH Range 7
[2020-06-29 20:08] LABS: Chlamydia By Nucleic Acid AMP Negative (Negative)
[2020-06-30 11:18] LABS: Gonococcus By Nucleic Acid AMP Negative (Negative)
== END ==
PROVIDERS: Referring Provider Obstetrics & Gynecology; Visit Provider Obstetrics & Gynecology
DX: Z34.80 Encounter for supervision of other normal pregnancy, unspecified trimester (principal)
CPT/HCPCS: 80307; 87086; 87088; 87491; 87591

== ENCOUNTER → 2020-07-02 06:53 | Outpatient (CLI) | payer BC, SELFPAY ==
[2020-06-28 10:32] VITALS: BMI 21.7
[2020-07-02 07:19] LABS: Absolute Lymphocyte Count 2.16 X10^3/uL (0.83-4.51); Absolute Neutrophil Count 10.4 X10^3/uL (2.0-7.7); Basophil# 0.04 X10^3/uL; Basophil% 0.3 % (0-1); Eosinophil# 0.26 X10^3/uL; Eosinophils% 1.9 % (0-5); Hematocrit 42.3 % (37-47); Hemoglobin 14.1 g/dL (12.0-15.0); Lymphocyte # 2.16 X10^3/ul (4.0); Lymphocyte % 16.1 % (19-41); Mean Corp Hgb Conc 33.3 g/dL (32-36); Mean Corpuscular Hgb 29.7 pg (27.0-32.0); Mean Corpuscular Volume 89.1 fL (81-99); Monocyte# 0.48 X10^3/uL; Monocyte% 3.6 % (0-10); NRBC Flagged by Analyzer 0 % (0-5); Neutrophil # 10.41 X10^3/uL (2.7-7.7); Neutrophil % 77.7 % (47-70); Platelet Count 304 K/mm3 (150-450); RBC Distribution Width CV 12.1 % (11.6-14.6); RBC Distribution Width SD 39.8 fl (35.1-43.9); Red Blood Count 4.75 M/mm3 (4.2-5.4); White Blood Count 13.4 K/mm3 (4.4-11.0)
[2020-07-02 08:07] LABS: NATERA MAILED SPECIMEN
[2020-07-02 09:14] LABS: HIV - WCH Non-Reactive (Nonreactive); Hepatitis B Surface Antigen Non-Reactive (Nonreactive); Hepatitis C Antibody Non-Reactive (Nonreactive); Rubella IgG Reactive (Nonreactive)
[2020-07-05 02:39] LABS: Rapid Plasmin Reagin (RPR) NONREACTIVE (NONREACTIVE)
== END ==
PROVIDERS: Referring Provider Obstetrics & Gynecology; Visit Provider Obstetrics & Gynecology
DX: Z34.80 Encounter for supervision of other normal pregnancy, unspecified trimester (principal)
CPT/HCPCS: 36415; 85025; 86592; 86703; 86762; 86803; 86850; 86900; 86901; 87340

== ENCOUNTER → 2020-09-10 12:50 | Outpatient (CLI) | payer BC, SELFPAY ==
[2020-07-27 09:27] VITALS: BMI 21.4
[2020-08-22 08:47] VITALS: BMI 22.1
--- NOTE | 2020-09-10 12:53 | US_ITS ---
STUDY: SECOND AND THIRD TRIMESTER OBSTETRICAL ULTRASOUND REASON FOR EXAM: Female, 30 years old anatomy LMP: 04/25/2020. TECHNIQUE: Transabdominal TECHNICAL QUALITY: Adequate. PRIOR ULTRASOUND: None. FINDINGS: There is a single intrauterine fetus. The fetus is in a breech presentation. There is demonstrated cardiac activity with a heart rate of 148 bpm. There is a normal amniotic fluid volume. The largest amniotic fluid pocket measures 4.3 cm. The amniotic fluid index (ITALIA) is within normal limits. The placenta is anterior in location and is not low lying. There are Grade 0 placental changes. The cervix measures 3.8 cm in length. The bilateral adnexal regions are normal. BIOMETRY: BPD: 4.62 cm: 19 weeks, 6 days HC: 17.48 cm: 20 weeks, 0 days AC: 15.64 cm: 20 weeks, 5 days FL: 3.03 cm: 19 weeks, 2 days CI: 74% FL/BPD: 66% FL/HC: FL/AC: 19% HC/AC: 1.12 age by current US: 20 weeks, 0 days. JOSEPHINE by current US: 01/28/2021. Estimated weight: 336 grams, +/- 50 grams, 70 %. Age by LMP: 19 weeks, 5 days. JOSEPHINE by LMP: 01/30/2021. ANATOMY: Gender: Male Cranium: Normal lateral ventricles. Normal choroid plexus. Normal cerebellum. Normal cisterna magna. Normal face, nose and lips. Chest: Normal 4-chamber heart. Abdomen/Pelvis: Normal diaphragm. Normal stomach. Normal abdominal wall. Normal cord insertion. Normal 3 vessel cord. The right renal pelvis measures 3 mm. The left renal pelvis measures 2 mm. This is within normal range. Normal bladder. Spine: Normal cervical spine. Normal thoracic spine. Normal lumbar spine. Normal sacrum. Extremities: Normal bilateral upper extremities. Normal bilateral lower extremities. US/OB Anatomy Scan IMPRESSION: Single live uterine gestation with a mean gestational age of 20 weeks. Electronically Signed: Jez Rebollar MD at 14:45 EST , Service support ,
== END ==
PROVIDERS: Referring Provider Obstetrics & Gynecology; Visit Provider Obstetrics & Gynecology
DX: Z34.90 Encounter for supervision of normal pregnancy, unspecified, unspecified trimester (principal)
CPT/HCPCS: 76805

== ENCOUNTER → 2020-09-21 12:01 | Outpatient (CLI) | payer BC, SELFPAY ==
[2020-09-21 08:59] VITALS: BMI 22.8
== END ==
PROVIDERS: Referring Provider Obstetrics & Gynecology; Visit Provider Obstetrics & Gynecology
DX: O23.40 Unspecified infection of urinary tract in pregnancy, unspecified trimester (principal)
CPT/HCPCS: 87086; 87088

== ENCOUNTER → 2020-10-19 16:47 | Outpatient (CLI) | payer BC, SELFPAY ==
[2020-10-19 08:54] VITALS: BMI 23.6
== END ==
PROVIDERS: Referring Provider Obstetrics & Gynecology; Visit Provider Obstetrics & Gynecology
DX: O23.40 Unspecified infection of urinary tract in pregnancy, unspecified trimester (principal); Z3A.00 Weeks of gestation of pregnancy not specified
CPT/HCPCS: 87086; 87088

== ENCOUNTER → 2020-11-08 08:14 | Outpatient (CLI) | payer BC, SELFPAY ==
[2020-10-19 08:54] VITALS: BMI 23.6
[2020-11-08 09:16] LABS: Absolute Lymphocyte Count 1.88 X10^3/uL (0.83-4.51); Absolute Neutrophil Count 9.2 X10^3/uL (2.0-7.7); Basophil# 0.04 X10^3/uL; Basophil% 0.3 % (0-1); Eosinophil# 0.17 X10^3/uL; Eosinophils% 1.4 % (0-5); Hematocrit 37.9 % (37-47); Hemoglobin 12.4 g/dL (12.0-15.0); Lymphocyte # 1.88 X10^3/ul (0.83-4.51); Lymphocyte % 15.4 % (19-41); Mean Corp Hgb Conc 32.7 g/dL (32-36); Mean Corpuscular Hgb 31.3 pg (27.0-32.0); Mean Corpuscular Volume 95.7 fL (81-99); Mean Platelet Vol. 10.3 fl (6.2-12.0); Monocyte# 0.75 X10^3/uL; Monocyte% 6.2 % (0-10); NRBC Flagged by Analyzer 0 % (0-5); Neutrophil # 9.16 X10^3/uL (2.7-7.7); Neutrophil % 75.2 % (47-70); Platelet Count 244 K/mm3 (150-450); RBC Distribution Width CV 12.8 % (11.6-14.6); RBC Distribution Width SD 45.1 fl (35.1-43.9); Red Blood Count 3.96 M/mm3 (4.2-5.4); White Blood Count 12.2 K/mm3 (4.4-11.0)
[2020-11-08 09:51] LABS: Glucose Challenge Gest 1H 50g 58 mg/dL (70-140)
== END ==
PROVIDERS: Referring Provider Obstetrics & Gynecology; Visit Provider Obstetrics & Gynecology
DX: Z34.80 Encounter for supervision of other normal pregnancy, unspecified trimester (principal)
CPT/HCPCS: 36415; 82950; 85025

== ENCOUNTER → 2021-01-04 13:01 | Outpatient (CLI) | payer BC, SELFPAY ==
[2021-01-04 10:58] VITALS: BMI 24.0
== END ==
PROVIDERS: Visit Provider Obstetrics & Gynecology
DX: Z34.93 Encounter for supervision of normal pregnancy, unspecified, third trimester (principal)
CPT/HCPCS: 87081

== ENCOUNTER 2021-01-27 17:10 | Outpatient (CLI) | payer BC, SELFPAY ==
[2021-01-25 11:02] VITALS: BMI 24.0
[2021-01-27 17:20] VITALS: BP 123/65; PULSE 59; TEMP 37.3
[2021-01-27 17:22] VITALS: BMI 25.2
--- NOTE | 2021-01-29 10:44 | OB.TRI.PN_ITS ---
Progress Notes Date of Service: 01/27/21 Progress Note: Patient presents for triage evaluation secondary to contractions. Cervix 5cm on arrival but contractions irregular. No change on 2h recheck. Offered admission vs. discharge. Elected for discharge to home FHT: Moderate variability reactive no decelerations category I tracing [place]: Q15 min Contractions Assessment and plan: Reactive NST, reassuring maternal and status patient discharged to home to follow-up at next scheduled visit. See problem list details for additional plan information. Charges/Coding Procedures Urinary/Genital 52xxx-59xxx: 34516-92 non-stress test Interp
== END 2021-01-27 19:05 | disposition home or self-care (01) ==
LOC: WPOUT 17:14 → WP 17:14
PROVIDERS: Visit Provider Obstetrics & Gynecology
DX: O47.9 False labor, unspecified (principal); Z3A.00 Weeks of gestation of pregnancy not specified
CPT/HCPCS: 59025; 59050; 99218; G0378

== ENCOUNTER 2021-01-28 06:55 | Inpatient (IN) | payer BC, SELFPAY ==
[2021-01-27 17:22] VITALS: BMI 25.2
[2021-01-28] VITALS (40 sets, daily range): BP systolic 100–132; BP diastolic 55–89; PULSE 54–229; RESP 16; TEMP 36.4–37.2; O2SAT 82–98; BMI 25.2
[2021-01-28] MEDS: Lactated Ringers 500 ML 999 ML IV (07:07)
[2021-01-28 07:18] LABS: Absolute Lymphocyte Count 1.71 X10^3/uL (0.83-4.51); Absolute Neutrophil Count 13.6 X10^3/uL (2.0-7.7); Basophil# 0.04 X10^3/uL; Basophil% 0.2 % (0-1); Eosinophil# 0.08 X10^3/uL; Eosinophils% 0.5 % (0-5); Hematocrit 40.3 % (37-47); Hemoglobin 13.6 g/dL (12.0-15.0); Lymphocyte # 1.71 X10^3/ul (0.83-4.51); Lymphocyte % 10.4 % (19-41); Mean Corp Hgb Conc 33.7 g/dL (32-36); Mean Corpuscular Hgb 31.3 pg (27.0-32.0); Mean Corpuscular Volume 92.6 fL (81-99); Mean Platelet Vol. 10.3 fl (6.2-12.0); Monocyte# 0.88 X10^3/uL; Monocyte% 5.4 % (0-10); NRBC Flagged by Analyzer 0 % (0-5); Neutrophil # 13.57 X10^3/uL (2.7-7.7); Neutrophil % 82.6 % (47-70); Platelet Count 213 K/mm3 (150-450); RBC Distribution Width CV 13.1 % (11.6-14.6); RBC Distribution Width SD 44.2 fl (35.1-43.9); Red Blood Count 4.35 M/mm3 (4.2-5.4); White Blood Count 16.4 K/mm3 (4.4-11.0)
[2021-01-28] MEDS: Lactated Ringers 1,000 ML 200 ML IV (07:45)
[2021-01-28] MEDS: fentaNYL-bupivacaine (epidural) 100 ML BAG EPIDURAL (08:37)
--- NOTE | 2021-01-28 09:30 | HP.PCM.OB_ITS ---
HPI - General General Date of Admission: 01/28/21 HPI Narrative CLARA SERRANO, is a 30 F who presents IAL 6 cm dilated, wants epidural. Maternal Data Information JOSEPHINE Calculator Estimated Delivery Date Method Current WG Current Estimate 01/28/21 LMP (Certain) 40w 0d PFSH PFS Medical History (Updated 01/28/21 @ 09:[address] 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 History 3 Elective abortions Hx Para 1 Spontaneous abortions 1 Hx # Term Pregnancies Ectopic pregnancies Hx # Pregnancies Multiple births # of living children 1 Past Pregnancies Del. Date Name GA/Weeks Outcome Route Bth Weight Gen Labor Lgth Anesthesia Del Locatn Provider FOB 01/06/19 Susana 40 live - full term 8lbs Female epidu ral [facility] Delivery Date: 01/06/19 RoM greater than 24 hours; 2 degree laceration Tianna Burns Visit Details Expected Delivery Route/Plan Labor Preferences- CB/BF classes: no labor support person: Yaw labor intervention preferences: [] pain management options preferred: epidural cut cord/dad catch: no : yes PP control planned: Discussed discussed possible routes of delivery and associated risks: [] special requests: [] Plans covid status: non immune flu vaccine: declined tdap vaccine: declined rhogam: na LARC form signed: yes Problem list reviewed and updated with the most current plan of care details and appropriate orders placed. Relevant counseling for the gestational age provided. Continue routine care and follow up unless otherwise noted in visit notes/problem list details OB Flowsheet Initial Weight: 140 lb Date -?-?-?-?-?-?-?-?-?-?-?-?- EGA Weight BP Urine Prot -?-?-?-?-?-?-?-?-?-?-?-?- Glucose FHR FuHt Pres Dilation -?-?-?-?-?-?-?-?-?-?-?-?- Effaced St Visit Note 06/28/20 -?-?-?-?-?-?-?-?-?-?-?-?- 9w 3d 139 lb (-16 oz) 108/66 -?-?-?-?-?-?-?-?-?-?-?-?- 170 -?-?-?-?-?-?-?-?-?-?-?-?- GP - CRL 22.5mm consistent with LMP. 07/27/20 -?-?-?-?-?-?-?-?-?-?-?-?- 13w 4d 137 lb (-3 lb) 120/84 Negative -?-?-?-?-?-?-?-?-?-?-?-?- Negative 150 -?-?-?-?-?-?-?-?-?-?-?-?- SM- no vb crampi ng 08/22/20 -?-?-?-?-?-?-?-?-?-?-?-?- 17w 2d 141 lb 8 oz (+1 lb 8 oz) 116/68 Negative -?-?-?-?-?-?-?-?-?-?-?-?- Negative 145 -?-?-?-?-?-?-?-?-?-?-?-?- GP - no cramping or bleeding. Anatomy scan end of the month. 09/21/20 -?-?-?-?-?-?-?-?-?-?-?-?- 21w 4d 146 lb (+6 lb) 100/80 Negative -?-?-?-?-?-?-?-?-?-?-?-?- Negative 145 -?-?-?-?-?-?-?-?-?-?-?-?- SM- no vb lof go od fm no regular ctx 10/19/20 -?-?-?-?-?-?-?-?-?-?-?-?- 25w 4d 151 lb 2 oz (+11 lb 2 oz) 122/74 Negative -?-?-?-?-?-?-?-?-?-?-?-?- Negative 135 -?-?-?-?-?-?-?-?-?-?-?-?- GP - no LOF, VB, DFM, ctx. GCT next visit. 11/08/20 -?-?-?-?-?-?-?-?-?--?-?-?- 28w 3d 153 lb 8 oz (+13 lb 8 oz) 116/70 Negative -?-?-?-?-?-?-?-?-?-?-?-?- Negative 143 28 -?-?-?-?-?-?-?-?-?-?-?-?- MH-No VB, LOF Go od FM. Had glucose drink this AM but was late to lab and couldn't draw. Will repeat tomorrow. Declines tdap. Lar 11/23/20 -?-?-?-?-?-?-?-?-?-?-?-?- 30w 4d 157 lb (+17 lb) 124/66 -?-?-?-?-?-?-?-?-?-?-?-?- 145 30 -?-?-?-?-?-?-?-?-?-?-?-?- Sm- no vb lof go od fm n oregular ctx 12/07/20 -?-?-?-?-?-?-?-?-?-?-?-?- 32w 4d 158 lb 4 oz (+18 lb 4 oz) 110/72 Negative -?-?-?-?-?-?-?-?-?-?-?-?- Negative 135 32 -?-?-?-?-?-?-?-?-?-?-?-?- GP - no LOF, VB, DFM, ctx. Sister's wedding is this weekend. 12/21/20 -?-?-?-?-?-?-?-?-?-?-?-?- 34w 4d 160 lb (+20 lb) 108/70 -?-?-?-?-?-?-?-?-?-?-?-?- 130 34 Cephalic -?-?-?-?-?-?-?-?-?-?-?-?- GP - no LOF, VB, dFM, ctx. Denies complaints. 01/04/21 -?-?-?-?-?-?-?-?-?-?-?-?- 36w 4d 161 lb (+21 lb) 110/70 Negative -?-?-?-?-?-?-?-?-?-?-?-?- Negative 130 36 Cephalic 2 -?-?-?-?-?-?-?-?-?-?-?-?- SM- no vb lof go od fm no regular ctx gbs 01/11/21 -?-?-?-?-?-?-?-?-?-?-?-?- 37w 4d 158 lb (+18 lb) 98/60 Negative -?-?-?-?-?-?-?-?-?-?-?-?- Negative 140 36 Cephalic 3 -?-?-?-?-?-?-?-?-?-?-?-?- SM- no vb lof go od fm no regular ctx 01/17/21 -?-?-?-?-?-?-?-?-?-?-?-?- 38w 3d 142 lb (+2 lb) 164 lb (+24 lb) 102/62 Negative -?-?-?-?-?-?-?-?-?-?-?-?- Negative 135 38 Cephalic 3 -?-?-?-?-?-?-?-?-?-?-?-?- 60 -1 SM- no vb lof good fm no reuglar ctx 01/25/21 -?-?-?-?-?-?-?-?-?-?-?-?- 39w 4d 164 lb (+24 lb) 120/82 Negative -?-?-?-?-?-?-?-?-?-?-?-?- Negative 135 39 Cephalic 3 -?-?-?-?-?-?-?-?-?-?-?-?- 70 -1 SM- no vb lof good fm no regular ctx 01/28/21 -?-?-?-?-?-?-?-?-?-?-?-?- 40w 0d 161 lb 9.6 oz (+21 lb 9.6 oz) 119/74 132/89 132/89 129/77 130/72 111/56 113/61 104/63 103/60 104/55 117/56 -?-?-?-?-?-?-?-?-?-?-?-?- -?-?-?-?-?-?-?-?-?-?-?-?- NST FHR Rate Baby A Baseline: 140 Variability:: Moderate Accelerations:: 15 x 15 Decelerations:: None NST Reactive:: Yes FHR Category:: Category I Uterine Activity:: q3-5 ROS Constitutional Constitutional: Reports systems reviewed and no addt'l complaints, except as documented ENT HEENT: Reports systems reviewed and no addt'l complaints, except as documented Cardiovascular Cardiovascular: Reports systems reviewed and no addt'l complaints, except as documented Respiratory/Chest Respiratory/Chest: Reports systems reviewed and no addt'l complaints, except as documented Gastrointestinal Gastrointestinal: Reports systems reviewed and no addt'l complaints, except as documented and nausea; Denies abdominal pain Genitourinary Genitourinary: Reports systems reviewed and no addt'l complaints, except as documented, contractions Details: present and frequency (regular ) and movement Details: present Musculoskeletal Musculoskeletal: Reports systems reviewed and no addt'l complaints, except as documented Integumentary Integumentary: Reports as per HPI Neurologic Neurologic: Reports systems reviewed and no addt'l complaints, except as documented Endocrine Endocrinology: Reports systems reviewed and no addt'l complaints, except as documented Vital Signs Vital Signs Vital Signs: 01/28/21 06:50 01/28/21 06:51 01/28/21 07:25 Temperature 98.3 F 98.3 F Temperature Source Temporal Temporal Pulse Rate 77 74 72 Blood Pressure 119/74 132/89 H BP Systolic 119 132 BP Diastolic 74 89 Pulse Ox 82 96 97 01/28/21 07:27 01/28/21 07:28 01/28/21 07:52 Temperature Temperature Source Pulse Rate 75 60 Blood Pressure 132/89 H BP Systolic 132 BP Diastolic 89 Pulse Ox 92 97 01/28/21 07:57 01/28/21 07:58 01/28/21 08:02 Temperature Temperature Source Pulse Rate 79 80 Blood Pressure 129/77 H BP Systolic 129 BP Diastolic 77 Pulse Ox 97 97 01/28/21 08:03 01/28/21 08:05 01/28/21 08:07 Temperature Temperature Source Pulse Rate 71 229 H Blood Pressure 130/72 H BP Systolic 130 BP Diastolic 72 Pulse Ox 82 97 01/28/21 08:08 01/28/21 08:12 01/28/21 08:13 Temperature Temperature Source Pulse Rate 62 75 Blood Pressure 111/56 L 113/61 BP Systolic 111 113 BP Diastolic 56 61 Pulse Ox 97 01/28/21 08:17 01/28/21 08:18 01/28/21 08:22 Temperature Temperature Source Pulse Rate 75 70 Blood Pressure 104/63 BP Systolic 104 BP Diastolic 63 Pulse Ox 96 96 01/28/21 08:23 01/28/21 08:27 01/28/21 08:30 Temperature Temperature Source Pulse Rate 69 69 75 Blood Pressure 103/60 104/55 L BP Systolic 103 104 BP Diastolic 60 55 Pulse Ox 97 01/28/21 08:31 01/28/21 09:04 Temperature 97.7 F L Temperature Source Temporal Pulse Rate 67 Blood Pressure 117/56 L BP Systolic 117 BP Diastolic 56 Pulse Ox Weight Weight: 161 lb 9.6 oz Body Mass Index (BMI) 25.2 Physical Exam Const alert, oriented x3 and healthy appearing Constitutional Narrative: uncomfortable with contractions HEENT normocephalic and moist oral mucous membranes Head and Scalp: atraumatic Neck full ROM, no lymphadenopathy, supple and thyroid normal General: trachea midline Thyroid: thyroid normal Lymph Lymphatic: no lymphadenopathy noted Chest inspection of chest normal Resp normal respiratory effort Cardio regular rate GI normal to inspection, nondistended, normoactive bowel sounds, soft to palpation and non-tender Inspection: gravid external exam normal Bimanual Exam - Vag & Uterus: uterus non-tender Manual OB Exam: estimated gestational size appropriate, presentation c ephalic, dilated, effaced and station Extremity normal to inspection General Extremity: Negative for edema Skin no rashes or lesions noted Neuro deep tendon reflexes 2+ bilaterally Motor Exam: strength 5/5 throughout and clonus absent Psych mental status grossly normal Labs Labs Labs: Blood Type B POSITIVE Antibody Screen NEGATIVE Hct 40.3 % (37-47) Hgb 13.6 g/dL (12.0-15.0) Obstetrics US Rubella IgG Antibody Reactive (Nonreactive) Hep Bs Antigen Non-Reactive (Nonreactive) Neisseria gonorrhoeae DNA (FERNANDO) Negative (Negative) HIV 1&2 Antibody Non-Reactive (Nonreactive) C.trachomatis DNA (PCR) Negative (Negative) Glucose 1 Hr 50 gm 58 mg/dL (70-140) L Rhogam given: No Miscellaneous Test Assessment & Plan (1) UTI (urinary tract infection), affecting care of mother, antepartum: COMMENT: 10/22/20 rpt neg (2) Supervision of other normal : COMMENT: PRR JOSEPHINE 01/28/2021 boy PC: Susana Spouse: Yaw (3) : QUALIFIERS: Weeks of gestation: 38 weeks Qualified Code(s): Z3A.38 - 38 weeks gestation of COMMENT: genetic- low risk male; declines carrier; NL anatomy, GBS neg (4) Active labor at term: PLAN: Patient presents IAL, plan expectant management for , pitocin/AROM PRN if needed. Pain management: plans epidural. GBS neg. Management of any complications: none I have reviewed the [facility] and made any clinically relevant updates.
[2021-01-28] MEDS: Oxytocin 30 units/NS 500 ml 30 UNITS/500 ML IV.SOLN 334 UNITS IV (11:57)
[2021-01-28] MEDS: Naproxen 500 MG Tablet PO (15:57)
--- NOTE | 2021-01-28 18:17 | NURSING ---
1700 pt oob up to br to void; pt gait steady; pericare demonstrated
[2021-01-29] VITALS (8 sets, daily range): BP systolic 92–119; BP diastolic 51–65; PULSE 61–87; RESP 16–18; TEMP 36.2–36.5; O2SAT 96–98
[2021-01-29] MEDS: Naproxen 500 MG Tablet PO ×2 (00:21→07:49)
--- NOTE | 2021-01-29 07:38 | PCM.PN.OB ---
Subjective Subjective Patient doing well without complaints. Tolerating PO. Ambulating and voiding without difficulty. Breast feeding well. Denies chest pain, shortness of breath, calf pain/swelling, fevers, chills, lightheadedness. Objective Data Objective Data Vital Signs: Vital Signs Temp Pulse Resp BP Pulse Ox 97.2 F L 74 18 115/65 98 01/29/21 04:45 01/29/21 04:45 01/29/21 04:45 01/29/21 04:45 01/29/21 04:45 Oxygen Delivery Method Room Air Weight: 161 lb 9.6 oz Body Mass Index (BMI) 25.2 Intake & Output: Intake and Output for Last 24 Hours 01/27/21 01/28/21 01/29/21 23:59 23:59 23:59 Intake Total 2990 / 2990 Output Total 1150 / 1150 Balance 1840 / 1840 Lab / Micro Data Result Diagrams: 01/28/21 07:07 Labs: Laboratory Results - last 24 hr 01/28/21 07:07: Blood Type B POSITIVE, Antibody Screen NEGATIVE Micro: Microbiology 01/28/21 08:45 Mucosa - Nose SARS-CoV-2 Antigen (Rapid) - Final Physical Exam Const alert and oriented x3 HEENT normocephalic Eyes PERRL Neck full ROM Resp normal respiratory effort GI soft to palpation GI Narrative: FF below U Assessment & Plan (1) Vaginal delivery: COMMENT: 40 SM boy IAL PLAN: s/p PPD # 1 1. routine post delivery care 2. breast feeding- support given 3. rh positive 4. rubella immune 5. home today
--- NOTE | 2021-01-29 07:40 | PCM.DC ---
Discharge Instructions Diet Discharge Diet: No restrictions Activity Discharge Activity: Return to Normal Activity, May Not Drive (while taking narcotic pain medications.) and May Shower May resume sexual activity in: 4 weeks (nothing in the vagina for 4 weeks.) Additional Activity Instructions:: Nothing in the vagina for 4-6 weeks. You may return to work/school in 6 weeks. Dressing / Incision Call your doctor if your incision/area has: Continuous Slow Oozing, Sudden Increased Bleeding, Increased Pain/ Swelling, Increased Redness and Foul Smelling Discharge Follow Up Care When: Call to make an appointment with your doctor in 6 weeks. If you had elevated Blood Pressure or 4th degree laceration you will need to be seen in 2 weeks. Test Results: Test results from this visit will be discussed in further detail at your follow-up appointment, if applicable. Discharge Plan Admission Admit Date/Time: 01/28/21 06:55 Attending Provider: Peace Bernal Primary Care Provider: Care Physician,Tabitha Primary Discharge Orders/Prescriptions Prescriptions: No Action vit,[id number] 1 TABLET tablet 1 tab PO DAILY RF: 0
--- NOTE | 2021-01-29 09:19 | EX.PCM.OBRPT ---
Assessment & Plan (1) Vaginal delivery: COMMENT: 40 SM boy IAL Kevan (2) : QUALIFIERS: Weeks of gestation: 38 weeks Qualified Code(s): Z3A.38 - 38 weeks gestation of COMMENT: genetic- low risk male; declines carrier; NL anatomy, GBS neg (3) Supervision of other normal : COMMENT: PRR JOSEPHINE 01/28/2021 manuel Mathur PC: Susana Spouse: Yaw (4) UTI (urinary tract infection), affecting care of mother, antepartum: COMMENT: 10/22/20 rpt neg Maternal Data Information JOSEPHINE Calculator Estimated Delivery Date Method Current WG Vaginal Delivery Operative Information Date of Procedure: 01/28/21 Pre-Operative Diagnosis: IAL Post-Operative Diagnosis: same Surgery / Procedure Performed: Spontaneous Vaginal Delivery Type of Anesthesia: Epidural Special Medications: none Estimated Blood Loss: 100 Fluids Replaced: crystalloid Findings Description of Procedure: Patient began pushing and delivered the head in the HIRAM presentation. The head was delivered atraumatically. The anterior and posterior shoulders delivered without complication followed by the rest of the infant and the was placed on the maternal abdomen. Delayed cord clamping was employed for approximately 60 seconds. Cord was clamped and cut and gentle traction was applied to the cord and the placenta delivered spontaneously immediately following it was noted to be intact with three-vessel cord. The perineum and vagina were inspected and noted to have a small first-degree perineal laceration. EBL was 100 cc. Patient and infant tolerated delivery well. Presentation: HIRAM Amniotic Membrane Rupture Type: Artificial Amniotic Fluid Description: Clear Placental Delivery Description: Spontaneous Placenta Disposition: [facility] Cord Vessel Description: 3 Vessels Cord Entanglement: None Delayed Cord Clamping: Yes Post Vaginal Delivery Medications Given After Delivery: IV Pitocin Episiotomy Description: None Laceration: Perineal Extension/lac and 1st degree Complication Complications: None Procedures Urinary/Genital [id number]: [id number] Vaginal Delivery [facility]
[2021-01-29] MEDS: Prenatal Vits Tablet 1 TABLET PO (11:49)
== END 2021-01-29 14:41 | disposition home or self-care (01) | DRG 807 ==
LOC: WPOUT 07:07 → WP 07:07
PROVIDERS: Obstetrics & Gynecology; Admitting Provider Obstetrics & Gynecology; Referring Provider Obstetrics & Gynecology; Visit Provider Obstetrics & Gynecology
DX: O70.0 First degree perineal laceration during delivery (principal); Z37.0 Single live birth; Z87.440 Personal history of urinary (tract) infections; Z3A.38 38 weeks gestation of pregnancy
CPT/HCPCS: 59025; 59050; 85025; 86850; 86900; 86901; 87426; 99218; J7120; G0378

== ENCOUNTER → 2021-03-14 14:28 | Outpatient (CLI) | payer BC, SELFPAY ==
[2021-03-19 22:27] LABS: HPV APTIMA, High Risk Negative (Negative)
== END ==
PROVIDERS: Referring Provider Obstetrics & Gynecology; Visit Provider Obstetrics & Gynecology
DX: Z12.4 Encounter for screening for malignant neoplasm of cervix (principal)
CPT/HCPCS: 87624; 88175; G0145

== ENCOUNTER → 2022-05-22 | Outpatient (CLI) | payer BC, SELFPAY ==
[2022-05-22 18:58] LABS: Amphetamine Urine VISTA NEGATIVE (<1000 ng/mL); Barbiturate Urine VISTA NEGATIVE (< 200 ng/mL); Benzodiazepine Urine VISTA NEGATIVE (< 200 ng/mL); Cocaine Urine VISTA NEGATIVE (< 300 ng/mL); Ecstacy Urine VISTA NEGATIVE (< 500 ng/mL); Methadone Urine VISTA NEGATIVE (< 300 ng/mL); PCP Urine VISTA NEGATIVE (< 25 ng/mL); THC Urine VISTA NEGATIVE (< 50 ng/mL); Vista UDS pH Range 6
[2022-05-26 00:07] LABS: Chlamydia By Nucleic Acid AMP Negative (Negative)
[2022-05-30 14:28] LABS: Gonococcus By Nucleic Acid AMP Negative (Negative)
== END | disposition home or self-care (01) ==
PROVIDERS: Visit Provider Obstetrics & Gynecology
DX: Z34.90 Encounter for supervision of normal pregnancy, unspecified, unspecified trimester (principal)
CPT/HCPCS: 80307; 87086; 87088; 87491; 87591

== ENCOUNTER → 2022-06-09 | Outpatient (CLI) | payer BC, SELFPAY ==
[2022-06-09 08:29] LABS: NATERA MAILED SPECIMEN
[2022-06-09 08:46] LABS: Absolute Lymphocyte Count 2.78 X10^3/uL (0.83-4.51); Absolute Neutrophil Count 7.2 X10^3/uL (2.0-7.7); Basophil# 0.04 X10^3/uL; Basophil% 0.4 % (0-1); Eosinophil# 0.24 X10^3/uL; Eosinophils% 2.2 % (0-5); Hematocrit 41.2 % (37-47); Hemoglobin 13.6 g/dL (12.0-15.0); Lymphocyte # 2.78 X10^3/ul (0.83-4.51); Lymphocyte % 25.4 % (19-41); Mean Corpuscular Hgb 29.4 pg (27.0-32.0); Mean Platelet Vol. 10.3 fl (6.2-12.0); Monocyte# 0.66 X10^3/uL; NRBC Flagged by Analyzer 0 % (0-5); Neutrophil # 7.17 X10^3/uL (2.7-7.7); Neutrophil % 65.5 % (47-70); Platelet Count 362 K/mm3 (150-450); RBC Distribution Width CV 12.2 % (11.6-14.6); RBC Distribution Width SD 39.8 fl (35.1-43.9); Red Blood Count 4.63 M/mm3 (4.2-5.4); White Blood Count 10.9 K/mm3 (4.4-11.0)
[2022-06-09 10:20] LABS: HIV - WCH Non-Reactive (Nonreactive); Hepatitis B Surface Antigen Non-Reactive (Nonreactive); Hepatitis C Antibody Non-Reactive (Nonreactive); Rubella IgG Reactive (Nonreactive); Syphilis Antibodies Non-reactive
== END | disposition home or self-care (01) ==
LOC: LAB 07:25
PROVIDERS: Referring Provider Obstetrics & Gynecology; Visit Provider Obstetrics & Gynecology
DX: Z34.90 Encounter for supervision of normal pregnancy, unspecified, unspecified trimester (principal)
CPT/HCPCS: 36415; 85025; 86703; 86762; 86780; 86803; 86850; 86900; 86901; 87340

== ENCOUNTER → 2022-08-08 | Outpatient (CLI) | payer BC, SELFPAY ==
--- NOTE | 2022-08-08 13:35 | US_ITS ---
STUDY: SECOND AND THIRD TRIMESTER OBSTETRICAL ULTRASOUND REASON FOR EXAM: Female, 32 years old anatomy scan LMP: 03/27/2022 TECHNIQUE: Transabdominal and Transvaginal TECHNICAL QUALITY: Adequate. PRIOR ULTRASOUND: None. FINDINGS: There is a single intrauterine fetus. The fetus is in a variable presentation. There is demonstrated cardiac activity with a heart rate of 138 bpm. There is a normal amniotic fluid volume. The largest amniotic fluid pocket measures 3.7 cm x 2.6 cm. The amniotic fluid index (ITALIA) is within normal limits. The placenta is posterior in location and is not low lying. There are Grade 0 placental changes. The cervix measures 3.8 cm in length. The bilateral adnexal regions are normal. BIOMETRY: BPD: 4.02 cm: 18 weeks, 1 days HC: 15.62 cm: 18 weeks, 4 days AC: 14.36 cm: 19 weeks, 5 days FL: 2.84 cm: 18 weeks, 5 days CI: 75% FL/BPD: 71% FL/HC: FL/AC: 20% HC/AC: 1.09 age by current US: 18 weeks, 5 days. JOSEPHINE by current US: 01/04/2023. Estimated weight: 276 grams, +/- 41 grams, 44 %. Age by LMP: 19 weeks, 1 days. JOSEPHINE by LMP: 01/01/2023. ANATOMY: Gender: Female Cranium: Normal lateral ventricles. Normal choroid plexus. Normal cerebellum. Normal cisterna magna. Normal face, nose and lips. Chest: Normal 4-chamber heart. Abdomen/Pelvis: Normal diaphragm. Normal stomach. Normal abdominal wall. Normal cord insertion. Normal 3 vessel cord. Normal kidneys. Normal bladder. Spine: Normal cervical spine. Normal thoracic spine. Normal lumbar spine. Normal sacrum. Extremities: Normal bilateral upper extremities. Normal bilateral lower extremities. US/OB Anatomy Scan IMPRESSION: Single live uterine gestation with a mean gestational age of 18 weeks and 5 days. Electronically Signed: Jez Rebollar MD at 15:17 EST ,
== END | disposition home or self-care (01) ==
PROVIDERS: Visit Provider Obstetrics & Gynecology
DX: Z34.90 Encounter for supervision of normal pregnancy, unspecified, unspecified trimester (principal)
CPT/HCPCS: 76805; 76817

== ENCOUNTER → 2022-10-10 | Outpatient (CLI) | payer BC, SELFPAY ==
[2022-10-10 08:51] LABS: Absolute Lymphocyte Count 1.73 X10^3/uL (0.83-4.51); Absolute Neutrophil Count 9.1 X10^3/uL (2.0-7.7); Basophil# 0.02 X10^3/uL; Basophil% 0.2 % (0-1); Eosinophil# 0.06 X10^3/uL; Eosinophils% 0.5 % (0-5); Hematocrit 40.9 % (37-47); Hemoglobin 13.3 g/dL (12.0-15.0); Lymphocyte # 1.73 X10^3/ul (0.83-4.51); Mean Corp Hgb Conc 32.5 g/dL (32-36); Mean Corpuscular Hgb 30.4 pg (27.0-32.0); Mean Corpuscular Volume 93.4 fL (81-99); Mean Platelet Vol. 10.4 fl (6.2-12.0); Monocyte# 0.45 X10^3/uL; Monocyte% 3.9 % (0-10); NRBC Flagged by Analyzer 0 % (0-5); Neutrophil # 9.14 X10^3/uL (2.7-7.7); Neutrophil % 79.4 % (47-70); Platelet Count 253 K/mm3 (150-450); RBC Distribution Width SD 44.6 fl (35.1-43.9); Red Blood Count 4.38 M/mm3 (4.2-5.4); White Blood Count 11.5 K/mm3 (4.4-11.0)
[2022-10-10 09:01] LABS: Glucose Challenge Gest 1H 50g 98 mg/dL (70-140)
[2022-10-10 09:33] LABS: HIV - WCH Non-Reactive (Nonreactive); Syphilis Antibodies Non-reactive
== END | disposition home or self-care (01) ==
LOC: LAB 08:02
PROVIDERS: Referring Provider Obstetrics & Gynecology; Visit Provider Obstetrics & Gynecology
DX: Z34.90 Encounter for supervision of normal pregnancy, unspecified, unspecified trimester (principal)
CPT/HCPCS: 36415; 82950; 85025; 86703; 86780

== ENCOUNTER → 2022-12-05 | Outpatient (CLI) | payer BC, SELFPAY | END | disposition home or self-care (01) | PROVIDERS: Visit Provider Obstetrics & Gynecology | DX: Z34.90 Encounter for supervision of normal pregnancy, unspecified, unspecified trimester (principal) | CPT/HCPCS: 87081 ==

== ENCOUNTER 2022-12-22 07:00 | Outpatient (CLI) | payer BC, SELFPAY ==
[2022-12-22 07:25] VITALS: PULSE 81; TEMP 37.4; O2SAT 99
[2022-12-22 07:34] VITALS: BMI 26.2
--- NOTE | 2022-12-22 07:51 | US_ITS ---
STUDY: SECOND AND THIRD TRIMESTER OBSTETRICAL ULTRASOUND - LIMITED REASON FOR EXAM: Female, 32 years old growth ultrasound LMP: March 27, 2022. PRIOR ULTRASOUND: Comparison is made with prior study dated August 08, 2022. TECHNIQUE: Transabdominal TECHNICAL QUALITY: Adequate. FINDINGS: There is a single intrauterine fetus. The fetus is in a cephalic presentation. There is demonstrated cardiac activity with a heart rate of 135 bpm. There is a normal amniotic fluid volume. The largest amniotic fluid pocket measures 4.1 cm. The amniotic fluid index (ITALIA) is 15 point cm. The placenta is fundal and posterior in location. There are Grade 2 placental changes. The cervix was not measured due to the head positioning. BIOMETRY: BPD: 9.1 cm: 37 weeks, 0 days HC: 33.7 cm: 38 weeks, 4 days AC: 35.3 cm: 39 weeks, 1 days FL: 7.3 cm: 37 weeks, 2 days Age by LMP: 38 weeks, 4 days. JOSEPHINE by LMP: January 01, 2023. age by prior US: 38 weeks, 1 days. JOSEPHINE by prior US: January 04, 2023. age by current US: 38 weeks, 0 days. JOSEPHINE by current US: January 05, 2023. Estimated weight: 3497 grams, +/- 525 grams, 63 percentile. US/OB Limited With Biometrics IMPRESSION: Single live uterine gestation with a mean gestational age of 38 weeks and 1 day. The measurements obtained today following within the normal expected range. Electronically Signed: Jez Rebollar MD at 12:56 EDT ,
[2022-12-22 08:08] LABS: ROM Internal Control Test YES-OK TO RESULT pt. (Internal QC); Record Kit Lot#, ROM+ K1374
[2022-12-22 08:09] LABS: ROM Patient Test Negative (Negative)
[2022-12-22 11:06] VITALS: PULSE 62; O2SAT 96
--- NOTE | 2022-12-26 01:53 | OB.TRI.PN_ITS ---
Progress Notes Date of Service: 12/22/22 Progress Note: Patient presents for triage evaluation secondary to possible ROM FHT: 140 Moderate variability reactive no decelerations category I tracing [place]: irregular Contractions Assessment and plan: amniotic membranes intact false labor nl growth and fluid Reactive NST, reassuring maternal and status patient discharged to home to follow-up as scheduled. See problem list details for additional plan information. Laboratory Studies: Laboratory Tests 12/22/22 Range/Units 07:30 Vag Amniotic Fld Detect Negative (Negative) Charges/Coding Procedures Urinary/Genital 52xxx-59xxx: 46932-22 non-stress test Interp
== END 2022-12-22 11:15 | disposition home or self-care (01) ==
LOC: WPOUT 07:27 → WP 07:34
PROVIDERS: Referring Provider Obstetrics & Gynecology; Visit Provider Obstetrics & Gynecology
DX: O47.9 False labor, unspecified (principal); Z3A.00 Weeks of gestation of pregnancy not specified
CPT/HCPCS: 59025; 59050; 76816; 84112; 99221; G0378

== ENCOUNTER 2022-12-27 22:27 | Inpatient (IN) | payer BC, SELFPAY ==
[2022-12-27 21:34] VITALS: PULSE 80; O2SAT 97
[2022-12-27 21:35] VITALS: BP 106/61; PULSE 86
[2022-12-27 21:40] VITALS: BMI 26.4
[2022-12-27 22:23] LABS: ROM Internal Control Test YES-OK TO RESULT pt. (Internal QC)
[2022-12-27 22:25] LABS: ROM Patient Test POSITIVE (Negative); Record Kit Lot#, ROM+ K1374
[2022-12-27 23:15] VITALS: PULSE 73; TEMP 36.9; O2SAT 96
[2022-12-27 23:17] VITALS: BP 106/56; PULSE 76
[2022-12-27 23:18] LABS: Absolute Lymphocyte Count 2.69 X10^3/uL (0.83-4.51); Absolute Neutrophil Count 9.4 X10^3/uL (2.0-7.7); Basophil# 0.04 X10^3/uL; Basophil% 0.3 % (0-1); Eosinophil# 0.12 X10^3/uL; Eosinophils% 0.9 % (0-5); Hemoglobin 11.7 g/dL (12.0-15.0); Lymphocyte # 2.69 X10^3/ul (0.83-4.51); Lymphocyte % 19.8 % (19-41); Mean Corp Hgb Conc 33.4 g/dL (32-36); Mean Corpuscular Hgb 31.5 pg (27.0-32.0); Mean Corpuscular Volume 94.1 fL (81-99); Mean Platelet Vol. 10.8 fl (6.2-12.0); Monocyte% 8.1 % (0-10); NRBC Flagged by Analyzer 0 % (0-5); Neutrophil # 9.37 X10^3/uL (2.7-7.7); Neutrophil % 69.1 % (47-70); Platelet Count 219 K/mm3 (150-450); RBC Distribution Width CV 13.2 % (11.6-14.6); Red Blood Count 3.72 M/mm3 (4.2-5.4); White Blood Count 13.6 K/mm3 (4.4-11.0)
[2022-12-27] MEDS: Oxytocin 15 Units/NS 250ml 15 UNITS/250 ML IV.SOLN 2 UNITS IV (23:24)
[2022-12-27] MEDS: Lactated Ringers 1,000 ML 50 ML IV (23:25)
[2022-12-28] VITALS (72 sets, daily range): BP systolic 97–131; BP diastolic 50–79; PULSE 50–89; RESP 16; TEMP 36.1–36.8; O2SAT 94–100
[2022-12-28 00:02] LABS: Syphilis Antibodies Non-reactive
[2022-12-28] MEDS: LACTATED RINGERS 500 ML 999 ML IV ×2 (01:49→08:09)
[2022-12-28] MEDS: fentaNYL-bupivacaine (epidural) 100 ML BAG EPIDURAL ×2 (02:50→07:34)
--- NOTE | 2022-12-28 05:19 | HP.PCM.OB_ITS ---
HPI - General General Date of Admission: 12/27/22 HPI Narrative CLARA SERRANO, is a 32 F who presents at 39.2 with LOF since around 0500 12/27. no vb/ctx. good fm. GBS negative. uncomplicated course Maternal Data Information JOSEPHINE Calculator Estimated Delivery Date Method Current WG Current Estimate 01/01/23 LMP (Certain) 39w 3d Other Estimates 01/01/23 Ultrasound #1 39w 3d PFSH [facility] Medical History H/O miscarriage, currently hemorrhage Vaginal delivery Home Medications vits,calcium no.78-iron fumarate-folic acid 29 mg-1 mg tablet 1 tab PO DAILY 01/05/19 [History Last Taken 12/27/22] Allergy/AdvReac Type Severity Reaction Status Date / Time No Known Allergies Allergy Verified 12/27/22 21:41 Social History Smoking Status: Never smoker alcohol intake: never substance use type: does not use caffeine: No what type of physical activity do you participate in: aerobics and weight training frequency: 5-6 times per week seatbelt use: sometimes do you feel safe at home: Yes additional social history: - Y[employer]- 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 History 3 Elective abortions Hx Para 2 Spontaneous abortions 1 Hx # Term Pregnancies Ectopic pregnancies Hx # Pregnancies Multiple births # of living children 2 Past Pregnancies Del. Date Name GA/Weeks Outcome Route Bth Weight Gen Labor Lgth Anesthesia Del Locatn Provider FOB 01/06/19 Susana 40 live - full term 8lbs Female epidu ral [facility] 01/28/21 Mathur 40 live - full term [facility] Marcanthony Delivery Date: 01/06/19 Last Updated by: Tianna Burns RoM greater than 24 hours; 2 degree laceration Visit Details Expected Delivery Route/Plan Labor Preferences- CB/BF classes: [] labor support person: [] labor intervention preferences: [] pain management options preferred: [] cut cord/dad catch: [] : [] PP control planned: [] discussed possible routes of delivery and associated risks: [] special requests: [] Plans Covid status: unvaccinated Flu vaccine: declines Tdap vaccine: [] Rhogam: [] LARC form signed: [] Problem list reviewed and updated with the most current plan of care details and appropriate orders placed. Relevant counseling for the gestational age provided. Continue routine care and follow up unless otherwise noted in visit notes/problem list details OB Flowsheet Initial Weight: Not Recorded Date -?-?-?-?-?-?-?-?-?-?-?-?- EGA Weight BP Urine Prot -?-?-?-?-?-?-?-?-?-?-?-?- Glucose FHR FuHt Pres Dilation -?-?-?-?-?-?-?-?-?-?-?-?- Effaced St Visit Note 05/22/22 -?-?-?-?-?-?-?-?-?-?-?-?- 8w 0d 139 lb 124/76 -?-?-?-?-?-?-?-?-?-?-?-?- 149 -?-?-?-?-?-?-?-?-?-?-?-?- JV- single live IUP measuring 8 weeks 0 days consistent with LMP. 06/20/22 -?-?-?-?-?-?-?-?-?-?-?-?- 12w 1d 140 lb 98/72 -?-?--?-?-?-?-?-?-?-?-?-?- 160 -?-?-?-?-?-?-?-?-?-?-?-?- JV- no cramping or pain. Normal NIPT (it's a girl!) 07/28/22 -?-?-?-?-?-?-?-?-?-?-?-?- 17w 4d 147 lb 2 oz 96/64 Nega tive -?-?-?-?-?-?-?-?-?-?-?-?- Negative 148 -?-?-?-?-?-?-?-?-?-?-?-?- MH-No Vb, crampi ng. Denies concerns. Reviewed normal labs. 08/15/22 -?-?-?-?-?-?-?-?-?-?-?-?- 20w 1d 152 lb 130/72 Negative -?-?-?-?-?-?-?-?-?-?-?-?- Negative 144 -?-?-?-?-?-?-?-?-?-?-?-?- JV- normal anato my scan. pt having migraines without an aura. recommend tylenol, caffeine and suboccipital muscle release techniques 09/12/22 -?-?-?-?-?-?-?-?-?-?-?-?- 24w 1d 154 lb 4 oz 99/56 Nega tive -?-?-?-?-?-?-?-?-?-?-?-?- Negative 142 -?-?-?-?-?-?-?-?-?-?-?-?- JV- no lof, vagi nal bleeding, or dec fm. gct ordered. headaches resolved. 10/10/22 -?-?-?-?-?-?-?-?-?-?-?-?- 28w 1d 156 lb 6 oz 101/68 Nega tive -?-?-?-?-?-?-?-?-?-?-?-?- Negative 145 28 -?-?-?-?-?-?-?-?-?-?-?-?- SM- no vb lof go od fm no regualr ctx 10/20/22 -?-?-?-?-?-?-?-?-?-?-?-?- 29w 4d 156 lb 6 oz 105/67 -?-?-?-?-?-?-?-?-?-?-?-?- 140 30 -?-?-?-?-?-?-?-?-?-?-?-?- SM- no vb lof go od fm no regular ctx 11/19/22 -?-?-?-?-?-?-?-?-?-?-?-?- 33w 6d 164 lb 2 oz 116/76 -?-?-?-?-?-?-?-?-?-?-?-?- 146 -?-?-?-?-?-?-?-?-?-?-?-?- MH-No VB, LOF. G ood Fm. Denies concerns 12/05/22 -?-?-?-?-?-?-?-?-?-?-?-?- 36w 1d 162 lb 94/61 Negative -?-?-?-?-?-?-?-?-?-?-?-?- Negative 140 36 Cephalic 1 .5 -?-?-?-?-?-?-?-?-?-?-?-?- 60 -2 SM- no vb lof good fm no regular ctx 12/12/22 -?-?-?-?-?-?-?-?-?-?-?-?- 37w 1d 168 lb 121/74 -?-?-?-?-?-?-?-?-?-?-?-?- 120 37 Cephalic -?-?-?-?-?-?-?-?-?-?-?-?- JV- declines pel maday exam today. no lof, vaginal bleeding, or dec fm. 12/19/22 -?-?-?-?-?-?-?-?-?-?-?-?- 38w 1d 166 lb 107/72 -?-?-?-?-?-?-?-?-?-?-?-?- 130 36 Cephalic 2.5 -?-?-?-?-?-?-?-?-?-?-?-?- 70 -1 SM- no vb lof good fm no regular ctx SM- no vb lof good fm no reg ular ctx bedside alina 7 cm will get growth us 12/26/22 -?-?-?-?-?-?-?-?-?-?-?-?- 39w 1d 166 lb 4 oz 126/70 Trac e -?-?-?-?-?-?-?-?-?-?-?-?- Negative 140 37 Cephalic 3 -?-?-?-?-?-?-?-?-?-?-?-?- 70 -1 JV- no lof , vaginal bleeding, or dec fm. NST FHR Rate Baby A Baseline: 120 Variability:: Moderate Accelerations:: 15 x 15 Decelerations:: None NST Reactive:: Yes FHR Category:: Category I Uterine Activity:: irregular on admission ROS Cardiovascular Cardiovascular: Denies abdominal pain, chest pain, diaphoresis or dyspnea Respiratory/Chest Respiratory/Chest: Denies change in mental status, chest congestion, chest tightness, cough, shortness of breath at rest, shortness of breath with exertion, breast mass, breast pain, breast skin changes, breast swelling, change in breast shape or nipple discharge Genitourinary Genitourinary: Reports change in urinary stream Musculoskeletal Musculoskeletal: Reports none Integumentary Integumentary: Reports none Neurologic Neurologic: Reports none Psychiatric Psychiatric: Reports none Endocrine Endocrinology: Reports none Hematologic/Lymphatic Hematologic/Lymphatic: Reports none Allergic/Immunologic Allergic/Immunologic: Reports none Vital Signs Vital Signs Vital Signs: 12/27/22 21:34 12/27/22 21:34 12/27/22 21:35 Temperature Temperature Source Pulse Rate 80 Blood Pressure 106/61 BP Systolic 106 BP Diastolic 61 Pulse Ox 97 12/27/22 21:35 12/27/22 23:15 12/27/22 23:15 Temperature Temperature Source Pulse Rate 86 73 Blood Pressure BP Systolic BP Diastolic Pulse Ox 96 12/27/22 23:15 12/27/22 23:15 12/27/22 23:17 Temperature 98.4 F Temperature Source Temporal Pulse Rate Blood Pressure 106/56 L BP Systolic 106 BP Diastolic 56 Pulse Ox 12/27/22 23:17 12/28/22 00:42 12/28/22 00:42 Temperature Temperature Source Pulse Rate 76 65 Blood Pressure 97/53 L BP Systolic 97 BP Diastolic 53 Pulse Ox 12/28/22 00:42 12/28/22 00:42 12/28/22 01:49 Temperature 97.7 F L Temperature Source Temporal Pulse Rate Blood Pressure 100/50 L BP Systolic 100 BP Diastolic 50 Pulse Ox 12/28/22 01:49 12/28/22 01:49 12/28/22 01:49 Temperature Temperature Source Temporal Pulse Rate 64 Blood Pressure BP Systolic BP Diastolic Pulse Ox 97 12/28/22 01:49 12/28/22 01:49 12/28/22 02:13 Temperature 97.7 F L Temperature Source Pulse Rate 69 Blood Pressure BP Systolic BP Diastolic Pulse Ox 98 12/28/22 02:13 12/28/22 02:14 12/28/22 02:14 Temperature Temperature Source Pulse Rate 75 Blood Pressure 121/70 H BP Systolic 121 BP Diastolic 70 Pulse Ox 97 12/28/22 02:18 12/28/22 02:18 12/28/22 02:19 Temperature Temperature Source Pulse Rate 56 L Blood Pressure 118/72 BP Systolic 118 BP Diastolic 72 Pulse Ox 97 12/28/22 02:19 12/28/22 02:23 12/28/22 02:23 Temperature Temperature Source Pulse Rate 71 64 Blood Pressure BP Systolic BP Diastolic Pulse Ox 98 12/28/22 02:24 12/28/22 02:24 12/28/22 02:29 Temperature Temperature Source Pulse Rate 57 L Blood Pressure 124/79 H 123/68 H BP Systolic 124 123 BP Diastolic 79 68 Pulse Ox 12/28/22 02:29 12/28/22 02:28 12/28/22 02:33 Temperature Temperature Source Pulse Rate 65 83 Blood Pressure BP Systolic BP Diastolic Pulse Ox 97 12/28/22 02:33 12/28/22 02:35 12/28/22 02:35 Temperature Temperature Source Pulse Rate 65 Blood Pressure 131/68 H BP Systolic 131 BP Diastolic 68 Pulse Ox 97 12/28/22 02:38 12/28/22 02:38 12/28/22 02:39 Temperature Temperature Source Pulse Rate 64 Blood Pressure 119/66 BP Systolic 119 BP Diastolic 66 Pulse Ox 98 12/28/22 02:39 12/28/22 02:44 12/28/22 02:44 Temperature Temperature Source Pulse Rate 55 L 64 Blood Pressure 119/67 BP Systolic 119 BP Diastolic 67 Pulse Ox 12/28/22 02:43 12/28/22 02:48 12/28/22 02:48 Temperature Temperature Source Pulse Rate 73 Blood Pressure BP Systolic BP Diastolic Pulse Ox 98 98 12/28/22 02:50 12/28/22 02:50 12/28/22 02:54 Temperature Temperature Source Pulse Rate 83 Blood Pressure 101/60 100/58 L BP Systolic 101 100 BP Diastolic 60 58 Pulse Ox 12/28/22 02:54 12/28/22 02:53 12/28/22 02:55 Temperature Temperature Source Pulse Rate 71 Blood Pressure 107/57 L BP Systolic 107 BP Diastolic 57 Pulse Ox 97 12/28/22 02:55 12/28/22 02:58 12/28/22 02:58 Temperature Temperature Source Pulse Rate 72 81 Blood Pressure BP Systolic BP Diastolic Pulse Ox 98 12/28/22 02:59 12/28/22 02:59 12/28/22 03:03 Temperature Temperature Source Pulse Rate 75 64 Blood Pressure 109/60 BP Systolic 109 BP Diastolic 60 Pulse Ox 12/28/22 03:03 12/28/22 03:04 12/28/22 03:04 Temperature Temperature Source Pulse Rate 79 Blood Pressure 104/58 L BP Systolic 104 BP Diastolic 58 Pulse Ox 98 12/28/22 03:08 12/28/22 03:08 12/28/22 03:09 Temperature Temperature Source Pulse Rate 75 Blood Pressure 106/63 BP Systolic 106 BP Diastolic 63 Pulse Ox 98 12/28/22 03:09 12/28/22 03:14 12/28/22 03:14 Temperature Temperature Source Pulse Rate 64 62 Blood Pressure 109/62 BP Systolic 109 BP Diastolic 62 Pulse Ox 12/28/22 03:13 12/28/22 03:18 12/28/22 03:18 Temperature Temperature Source Pulse Rate 67 Blood Pressure BP Systolic BP Diastolic Pulse Ox 97 97 12/28/22 03:19 12/28/22 03:19 12/28/22 03:19 Temperature Temperature Source Pulse Rate 89 Blood Pressure 101/63 BP Systolic 101 BP Diastolic 63 Pulse Ox 94 12/28/22 03:23 12/28/22 03:23 12/28/22 03:24 Temperature Temperature Source Pulse Rate 84 Blood Pressure 119/59 L BP Systolic 119 BP Diastolic 59 Pulse Ox 98 12/28/22 03:24 12/28/22 03:59 12/28/22 03:59 Temperature Temperature Source Pulse Rate 68 63 Blood Pressure 108/52 L BP Systolic 108 BP Diastolic 52 Pulse Ox 12/28/22 05:16 12/28/22 05:16 12/28/22 05:17 Temperature Temperature Source Pulse Rate 72 Blood Pressure 110/65 BP Systolic 110 BP Diastolic 65 Pulse Ox 97 12/28/22 05:17 Temperature Temperature Source Pulse Rate 66 Blood Pressure BP Systolic BP Diastolic Pulse Ox Weight Weight: 168 lb 12.8 oz Body Mass Index (BMI) 26.4 Physical Exam Const alert, oriented x3 and no apparent distress General Appearance: cooperative, comfortable and well kempt Orientation / Consciousness: awake and oriented to person Exam Limitations: no limitations HEENT normocephalic Neck full ROM Chest inspection of chest normal Resp normal respiratory effort, normal air movement and no retractions Effort and Inspection: able to speak in complete sentences and symmetric chest movement Cardio regular rate Peripheral Pulses: pulses 2+ throughout GI normal to inspection, nondistended, normoactive bowel sounds Inspection: gravid no CVA tenderness and appearance of the vagina normal External Female Exam: normal appearance of the urethra; Negative for external lesion OB / External & Speculum: external exam normal Manual OB Exam: estimated gestational size appropriate and presentation cephalic Uterus Palpation: Negative for uterus tender Extremity normal to inspection Skin no rashes or lesions noted Neuro deep tendon reflexes 2+ bilaterally and gait normal Motor Exam: strength 5/5 throughout and clonus absent Psych Activity / Motor Behavior: appropriate eye contact Speech: normal speech Labs Labs Labs: Blood Type B POSITIVE Antibody Screen NEGATIVE Hct 35.0 % (37-47) L Hgb 11.7 g/dL (12.0-15.0) L Obstetrics US Syphilis Total Ab Non-reactive Rubella IgG Antibody Reactive (Nonreactive) Hep Bs Antigen Non-Reactive (Nonreactive) Chlamydia DNA (FERNANDO) Negative (Negative) Neisseria gonorrhoeae DNA (FERNANDO) Negative (Negative) HIV 1&2 Antibody Non-Reactive (Nonreactive) Glucose 1 Hr 50 gm 98 mg/dL (70-140) Rhogam given: No Miscellaneous Test Assessment & Plan (1) SROM (spontaneous rupture of membranes): COMMENT: 0500 6/10 clear fluid, afebrile PLAN: pitocin augmentation for no change in cervical exam within 6 hours of ROM PLAN: Plan Patient presents with SROM since 0500, positive ROM plus plan Pitocin for induction of labor. Pain management: plans epidural. GBS negative. Management of any complications: none I have reviewed the [facility] and made any clinically relevant updates. updated on exam, poc, and admission. agrees with above
[2022-12-28] MEDS: Lactated Ringers 1,000 ML 200 ML IV (07:32)
--- NOTE | 2022-12-28 09:14 | OP.PCM_ITS ---
Assessment & Plan (1) (spontaneous vaginal delivery): COMMENT: 39 SROM . Benita. PLAN: routine pp orders. (2) SROM (spontaneous rupture of membranes): COMMENT: 0500 6/10 clear fluid, afebrile. Maternal Data Information JOSEPHINE Calculator Estimated Delivery Date Method Current WG Current Estimate 01/01/23 LMP (Certain) 39w 3d Other Estimates 01/01/23 Ultrasound #1 39w 3d Vaginal Delivery Maternal Presentation Maternal Presentation: Spontaneous Rupture of Membranes Maternal Presentation: pt presented at 39.2 with SROM since 5am. upon admission no cervical change from office exam. decision to start IOL. pt to a max pitocin, decel to 90s and found to be fully dilated +1 Type of Induction: Pitocin Operative Information Date of Procedure: 12/28/22 Pre-Operative Diagnosis: see admission A&P Post-Operative Diagnosis: Surgery / Procedure Performed: Spontaneous Vaginal Delivery Type of Anesthesia: Epidural Drain: Painting to straight drain Estimated Blood Loss: 300 Time of Delivery: 08:28 Findings Description of Procedure: Patient began pushing and delivered the head in the HIRAM presentation. The head was delivered atraumatically. The anterior and posterior shoulders delivered without complication followed by the rest of the infant and the was placed on the maternal abdomen. Delayed cord clamping was employed for willi roximately 60 seconds. Cord was clamped and cut and gentle traction was applied to the cord and the placenta delivered spontaneously immediately following it was noted to be intact with three-vessel cord. The perineum and vagina were inspected and noted to have 1st degree laceration repaired with 3-0 Vicryl in typical fashion. EBL was 300cc. Patient and infant tolerated delivery well. Presentation: Vertex Amniotic Membrane Rupture Type: Spontaneous Time of Membrane Rupture: 0500 Amniotic Fluid Description: Clear Placental Delivery Description: Spontaneous Placenta Disposition: [facility] Cord Vessel Description: 3 Vessels Cord Entanglement: None Infant A Gender: Female (1 minute): 8 (5 minute): 9 Delayed Cord Clamping: Yes Post Vaginal Delivery Medications Given After Delivery: IV Pitocin Episiotomy Description: None Laceration: 1st degree Addendum Addendum: CNM delivery
[2022-12-28] MEDS: Oxytocin 15 Units/NS 250ml 15 UNITS/250 ML IV.SOLN 83 UNITS IV (09:15)
--- NOTE | 2022-12-28 09:20 | DCINST_ITS ---
Discharge Instructions Diet Discharge Diet: No restrictions Activity Discharge Activity: May Not Drive and May Shower May resume sexual activity in: 6 weeks Weight Bearing Status: Full weight bearing Dressing / Incision Call your doctor if your incision/area has: Sudden Increased Bleeding, Increased Pain/ Swelling and Foul Smelling Discharge Call your doctor if you observe: Fever of 101 or Higher, Numbness or Tingling, Change in Color, Inability to urinate, Inability to have a bowel movement, Using more than 1 pad per hour, Shortness of breath, Dizziness, Fainting spells, Chest pain, Calf discomfort and Uncontrolled pain Follow Up Care Please Follow Up With: Lucila Boyle CNM When: 6 weeks , please call office to make an appointment. Congratulations on the of your baby girl AGUSTINA!!! Test Results: Test results from this visit will be discussed in further detail at your follow- up appointment, if applicable. Discharge Plan Admission Admit Date/Time: 12/27/22 22:27 Attending Provider: Lucila Boyle Primary Care Provider: Care Physician,Tabitha Primary Discharge Orders/Prescriptions Prescriptions: No Action vit,[id number] 1 TABLET tablet 1 tab PO DAILY Referrals / Follow Up: Care Physician,No Primary [Primary Care Provider] -
--- NOTE | 2022-12-28 09:41 | NURSING ---
Infusion of pitocin at rate of 334 for 167cc started at 0844 by this RN under direction of Jimmy Boyle CNM. Documented as start time in sep of 939 is an error. Medication infused at rate of 334 for 30 minutes and finished at 0914.
[2022-12-29 00:12] VITALS: BP 108/59; BP 109/59; PULSE 58; PULSE 60; RESP 16; TEMP 36.1; O2SAT 96
[2022-12-29 03:55] VITALS: BP 111/76; PULSE 56; RESP 16; TEMP 36.1; O2SAT 97
[2022-12-29 03:57] VITALS: BP 111/76; PULSE 53; O2SAT 92
--- NOTE | 2022-12-29 07:20 | NURSING ---
this RN reviewed and agrees with documentation per Dariusz Forrest RN; bedside report given to Lavon Ley RN who is assuming care of pt at this time
--- NOTE | 2022-12-29 07:58 | PCM.PN.OB ---
Subjective Subjective Patient doing well without complaints. Tolerating PO. Ambulating and voiding without difficulty. Feeding well. Denies chest pain, shortness of breath, calf pain/swelling, fevers, chills, lightheadedness. Objective Data Objective Data Vital Signs: Vital Signs Temp Pulse Resp BP Pulse Ox O2 Del Method 97.0 F L 53 L 16 111/76 92 Room Air 12/29/22 03:55 12/29/22 03:57 12/29/22 03:55 12/29/22 03:57 12/29/22 03:57 12/29/22 03:55 Oxygen Delivery Method Room Air Weight: 168 lb 12.8 oz Body Mass Index (BMI) 26.4 Intake & Output: Intake and Output for Last 24 Hours 12/27/22 12/28/22 12/29/22 23:59 23:59 23:59 Intake Total 1.1 / 1.1 2622.23 / 2622.23 Output Total 1532 / 1532 Balance 1.1 / 1.1 1090.23 / 1090.23 Lab / Micro Data Result Diagrams: 12/27/22 23:00 Physical Exam Const alert, oriented x3 and no apparent distress Neck full ROM Chest inspection of chest normal Resp normal respiratory effort and normal air movement Cardio regular rate and regular rhythm GI GI Narrative: fundus firm, 1 below u, mild lochia, no clots Extremity normal to inspection, full ROM, no calf tenderness and no pedal edema Skin no rashes or lesions noted Psych mental status grossly normal Appearance: grossly normal Assessment & Plan (1) (spontaneous vaginal delivery): COMMENT: 39 SROM . Benita. PLAN: s/p PPD # 1 1. routine post delivery care 2. breast feeding- support given 3. rh positive 4. rubella immune 5. d/c home today
[2022-12-29 10:30] VITALS: BP 112/69; PULSE 75; RESP 18; TEMP 36.4; O2SAT 98
[2022-12-29 10:31] VITALS: BP 112/69; PULSE 75
== END 2022-12-29 10:45 | disposition home or self-care (01) | DRG 807 ==
LOC: WPOUT 22:28 → WP 22:28
PROVIDERS: Admitting Provider Registered Nurse; Referring Provider Registered Nurse; Visit Provider Registered Nurse
DX: O76 Abnormality in fetal heart rate and rhythm complicating labor and delivery (principal); Z37.0 Single live birth; O42.92 Full-term premature rupture of membranes, unspecified as to length of time between rupture and onset of labor; O70.0 First degree perineal laceration during delivery; Z3A.39 39 weeks gestation of pregnancy; Z87.59 Personal history of other complications of pregnancy, childbirth and the puerperium
CPT/HCPCS: 59025; 59050; 84112; 85025; 86780; 86850; 86900; 86901; 99221; J7120; G0378

== ENCOUNTER → 2025-02-13 | Outpatient (CLI) | payer OTHER, SELFPAY ==
--- OUTSIDE RECORDS SUMMARY | 2025-02-13 07:08 | XMS RPT_ITS | CCD ---
Author Organization [facility] Care Team Providers Care Comedian Name Role Phone NASRA HENDRICKSON Attending Unavailable PEACE WAGONER Referring Unavailabl e NO PRIMARY CARE, Primary Care Unavailable PEACE WAGONER Attending PEACE Osei Referring Unavailabl e NO PRIMARY CARE, Primary Care Unavailable Care Physician, No Primary Primary Care Provider Unavailable Care Physician, No Primary Referring Provider Un available Dr. Nasra Che Attending Provider [phone] Courtney PULL THROUGH HOOKER, QASIM Patel Attending Provider [phone] Care Physician, No Primary Primary Care Provider Unavailable Care Physician, No Primary Referring Provider Un available Dr. Nasra Che Attending Provider [phone] QASIM Valdez NP Attending Provider [phone] Dr. Peace Wagoner Attending Provider [phone] Care Physician, No Primary Primary Care Provider Unavailable Care Physician, No Primary Referring Provider Un available Dr. Nasra Che Attending Provider 1 [phone] Courtney PULL THROUGH HOOKER, QASIM Patel Attending Provider [phone] Care Physician, No Primary Referring Unava ilable Nasra Che Attending Unavailabl e Care Physician, No Primary Primary Care Unava ilable Care Physician, No Primary Referring Unava ilable Care Physician, No Primary Primary Care Unava ilable Nasra Che Attending Unavailabl e Care Physician, No Primary Primary Care Unava ilable Care Physician, No Primary Referring Unava ilable Nasra Che Attending Unavailabl e Care Physician, No Primary Primary Care Unava ilable Care Physician, No Primary Referring Unava ilable Nasra Che Attending Unavailabl e Care Physician, No Primary Primary Care Unava ilable Peace Wagoner Attending Unavailable Peace Wagoner Referring Unavailable Care Physician, No Primary Referring Unava ilable Peace Wagoner Attending Unavailable Care Physician, No Primary Primary Care Unava ilable Care Physician, No Primary Referring Unava ilable Derick VelNasra armstrong Attending Unavailabl e Care Physician, No Primary Primary Care Unava ilable Care Physician, No Primary Primary Care Unava ilable Care Physician, No Primary Referring Unava ilable Lucila Boyle Attending Unavailable Care Physician, No Primary Referring Unava ilable Care Physician, No Primary Primary Care Unava ilable Peace Wagoner Attending Unavailable Care Physician, No Primary Referring Unava ilable Amanda Valdez Attending Unavailable Care Physician, No Primary Primary Care Unava ilable Care Physician, No Primary Referring Unava ilable Vande VelNasra armstrong Attending Unavailabl e Care Physician, No Primary Primary Care Unava ilable Care Physician, No Primary Referring Unava ilable Care Physician, No Primary Primary Care Unava ilable Peace Wagoner Attending Unavailable Vande Velde, Nasra Attending Unavailabl e Vande Velde, Nasra Referring Unavailabl e Care Physician, No Primary Primary Care Unava ilable Care Physician, No Primary Primary Care Unava ilable Vande VelNasra armstrong Referring Unavailabl e Vande Velde, Nasra Attending Unavailabl e Care Physician, No Primary Primary Care Unava ilable Vande VelNasra armstrong Attending Unavailabl e Care Physician, No Primary Primary Care Unava ilable Peace Wagoner Attending Unavailable Peace Wagoner Admitting Unavailable Care Physician, No Primary Primary Care Unava ilable [place], Lucila Admitting Unavailable BoyleLucila Attending Unavailable Boyle, Lucila Referring Unavailable Care Physician, No Primary Primary Care Unava ilable Peace Wagoner Attending Unavailable Care Physician, No Primary Referring Unava ilable Amanda Valdez Attending Unavailable Care Physician, No Primary Primary Care Unava ilable Care Physician, No Primary Primary Care Unava ilable Boyle, Lucila Consulting Unavailable BoyleLucila Attending Unavailable Boyle, Lucila Referring Unavailable Boyle, Lucila Admitting Unavailable Care Physician, No Primary Primary Care Unava ilable Peace Wagoner Attending Unavailable Peace Wagoner Referring Unavailable Peace Wagoner Consulting Unavailable Care Physician, No Primary Referring Unava ilable Nasra Che Attending Unavailabl e Care Physician, No Primary Primary Care Unava ilable Nasra Che Attending Unavailabl e Care Physician, No Primary Primary Care Unava ilable Care Physician, No Primary Referring Unava ilable Peace Wagoner Attending Unavailable Care Physician, No Primary Primary Care Unava ilable Medications Current Medications Medication Drug Class(es) Dates Sig (Normalized) Sig (Original) Vit,Fnmo06-Elhw-Mzn ic (5 sources) Start: 01-05-2019 take 1 tablet by mouth once daily Vit,Swwi38-Bzkm-Li lic Active 1 TABLET PO DAILY January 05, 2019 12:00am Start: 01-05-2019 take 1 tablet by rama th once daily Vit,Ddoz02-Ensn-Laazf Active 1 TABLET PO DAILY January 04, 2019 11:00pm Completed/Discontinued Medications Medication Drug Class(es) Dates Sig (Normalized) Sig (Original) acetaminophen 325 mg / HYDROcodone bitartrate 5 mg oral tablet (5 sources) Opioid Agonist Start: 12-12-2014 End: 05-25-2018 take 1 tablet by mouth every four hours as needed Hydrocodone-Acetami nophen Discontinued 1 - 2 TABLET PO EVERY 4 HOURS NEEDED December 12, 2014 12:00am May 25, 2018 3:26pm amoxicillin 500 mg oral tablet (5 sources) Penicillin-class Antibacterial Start: 12-04-2018 End: 12-17-2018 take 500 mg by mouth twice daily Amoxicillin Discontinued 500 MG PO TWICE A DAY December 04, 2018 12:00am December 17, 2018 8:58am amoxicillin 875 mg / clavulanate 125 mg oral tablet (5 sources) Penicillin-class Antibacterial Start: 08-02-2021 End: 08-12-2021 take 1 tablet by mouth every twelve hours Amoxicillin-Pot Clavulanate Discontinued 1 TABLET PO Q12H 08 05August 02, 2021 1:00am August 12, 2021 1:01am dicloxacillin 500 mg oral capsule (5 sources) Penicillin-class Antibacterial Start: 01-11-2019 End: 01-25-2019 take 500 mg by mouth every six hours Dicloxacillin Discontinued 500 MG PO EVERY 6 HOURS 56 14 January 11, 2019 12:00am January 25, 2019 12:07am ethinyl estradiol 0.035 mg / norethindrone 1 mg oral tablet (5 sources) Estrogen Start: 12-12-2014 End: 05-25-2018 Norethindrone-Ethin Estradiol Discontinued 1 EACH PO December 12, 2014 12:00am May 25, 2018 3:26pm fluconazole 150 mg oral tablet (5 sources) Azole Antifungal Start: 06-02-2018 End: 06-22-2018 Fluconazole Discontinued 150 MG PO .COMPLEX 2 June 02, 2018 1:00am June 22, 2018 3:18pm 150 mg PO take one po now and repeat in 3 days naproxen 500 mg oral tablet (5 sources) Nonsteroidal Anti-inflammatory Drug Start: 12-12-2014 End: 05-25-2018 take 500 mg by mouth twice daily Naproxen Discontinued 500 MG PO TWICE A DAY December 12, 2014 12:00am May 25, 2018 3:26pm nitrofurantoin, macrocrystals 25 mg / nitrofurantoin, monohydrate 75 mg oral capsule (5 sources) Nitrofuran Antibacterial Start: 07-01-2020 End: 07-08-2020 take 1 capsule by mouth every twelve hours at mealtime Nitrofurantoin Monohyd/M-Cryst (Macrobid) 100 mg capsule Discontinued 100 MG PO Q12H 14 July 01, 2020 1:00am July 08, 2020 1:03am must administer with a meal/food norethindrone 0.35 mg oral tablet (5 sources) Start: 02-18-2019 End: 06-21-2020 take 1 tablet by mouth once daily Norethindrone (Contraceptive) (Ortho Micronor) 0.35 mg tablet Discontinued 0.35 MG PO DAILY February 18, 2019 12:00am June 21, 2020 12:50pm start day 1 of menstrual cycle ondansetron 4 mg disintegrating oral tablet (5 sources) Serotonin-3 Receptor Antagonist Start: 12-12-2014 End: 05-25-2018 take 4 mg by mouth every eight hours as needed Ondansetron Discontinued 4 MG PO EVERY 8 HOURS NEEDED December 12, 2014 12:00am May 25, 2018 3:26pm Problems Active Problems Problem Classification Problem Date Documented Date Episodic/Chronic Early or threatened labor (1 source) False labor, unspecified; Translations: [False labor, unspecified] Onset: 01-08-2023 Episodic Hemorrhage during ; abruptio placenta; placenta previa (5 sources) Low lying placenta; Translations: [Low lying placenta NOS or without hemorrhage, second trimester] 11-26-2018 Episodic Other complications of (1 source) Uterine size for dates discrepancy; Translations: [Uterine size-date discrepancy, third trimester] 12-19-2022 Episodic Other complications of (2 sources) Uterine size-date discrepancy, third trimester; Translations: [Uterine size date discrepancy, antepartum condition or complication] Onset: 12-19-2022 12-19-2022 Episodic Other and delivery including normal (20 sources) Vaginal delivery; Translations: [Encounter for full-term uncomplicated delivery] Onset: 06-20-2022 Episodic Otitis media and related conditions (4 sources) Acute left otitis media; Translations: [Otitis media, unspecified, left ear] Episodic Polyhydramnios and other problems of amniotic cavity (5 sources) Mateo rupture of membranes onset of labor after 24 hours; Translations: [Premature rupture of membranes, onset of labor more than 24 hours following rupture, unspecified weeks of gestation] 02-18-2019 Episodic Residual codes; unclassified (1 source) 39 weeks gestation of ; Translations: [39 weeks gestation of ] Onset: 12-27-2022 Episodic Residual codes; unclassified (1 source) 38 weeks gestation of ; Translations: [38 weeks gestation of ] Onset: 12-19-2022 Episodic Residual codes; unclassified (1 source) 37 weeks gestation of ; Translations: [37 weeks gestation of ] Onset: 12-12-2022 Episodic Residual codes; unclassified (1 source) 36 weeks gestation of ; Translations: [36 weeks gestation of ] Onset: 12-05-2022 Episodic Past or Other Problems Problem Classification Problem Date Documented Da te Episodic/Chronic Residual codes; unclassified (1 source) 28 weeks gestation of ; Translations: [28 weeks gestation of ] Onset: 10-10-2022 Episodic Unclassified (5 sources) AFP negative 09-17-2018 Unclassified (5 sources) Normal labor; Translations: [Active labor at term] 01-30-2021 Results Test Name Value Interpretation Reference Range Facility (ROM) Rupture Of Membraneson 12-28-2022 ROM Positive Abnormal Negative [facility] Comment on above: Order Comment: Patie nt test is INVALID and must be repeated on a new sample. Resubmit fresh specimen for repeat testing. RESULTS CALLED TO [] 12/27/222222 Giacomo Womack. REPORT READ BACK BY [] []. Result Comment: Amni otic fluid present indicates rupture of Membranes. RESULTS CALLED TO YANIRA VILLEGAS RN 12/27/222222 Giacomo Womack. REPORT READ BACK BY SAME . Performed By: #### L 205.1000 #### [facility] [address] [place], [address] CBC W/Diff, Automatedon 12-18 Absolute Lymph 2.69 X10 3/uL Normal 0.83-4.51 [facility] Comment on above: Performed By: #### Wilfred SINGLETON, L100.0100 #### [facility] [address] [place], [address] Absolute Neut 9.4 X10 3/uL High 2.0-7.7 [facility] Comment on above: Performed By: #### B MANI, L100.0100 #### [facility] [address] [place], [address] Basophils/100 WBC (Bld) 0.3 % Normal 0-1 [facility] Comment on above: Performed By: #### B MANI, L100.0100 #### [facility] [address] [place], [address] Eosinophils/100 WBC (Bld) 0.9 % Normal 0-5 [facility] Comment on above: Performed By: #### B TS, L100.0100 #### [facility] [address] [place], [address] Erythrocyte distribution width (RBC) [Ratio] 13.2 % Normal 11.6-14.6 [facility] Comment on above: Performed By: #### B TS, L100.0100 #### [facility] [address] [place], [address] Hematocrit (Bld) [Volume fraction] 35.0 % Low 37-47 [facility] Comment on above: Performed By: #### B TS, L100.0100 #### [facility] [address] [place], [address] Hemoglobin (Bld) [Mass/Vol] 11.7 g/dL Low 12.0-15.0 [facility] Comment on above: Performed By: #### Wilfred TS, L100.0100 #### [facility] [address] [place], [address] IG% 1.800 High 0.0-0.9 [facility] Comment on above: Result Comment: IG% - Immature Granulocytes (promyelocytes, myelocytes and metamyelocytes) > 1% indicates that a LEFT SHIFT is Present. Performed By: #### Wilfred SINGLETON, L100.0100 #### [facility] [address] [place], [address] Lymphocytes/100 WBC (Bld) 19.8 % Normal 19-41 [facility] Comment on above: Performed By: #### Wilfred SINGLETON, L100.0100 #### [facility] [address] [place], [address] MCH (RBC) [Entitic mass] 31.5 pg Normal 27.0-32.0 [facility] Comment on above: Performed By: #### B MANI, L100.0100 #### [facility] [address] [place], [address] MCHC (RBC) [Mass/Vol] 33.4 g/dL Normal 32-36 [facility] Comment on above: Performed By: #### Wilfred TS, L100.0100 #### [facility] [address] [place], [address] MCV (RBC) [Entitic vol] 94.1 fL Normal 81-99 [facility] Comment on above: Performed By: #### Wilfred SINGLETON, L100.0100 #### [facility] [address] [place], [address] Monocytes/100 WBC (Bld) 8.1 % Normal 0-10 [facility] Comment on above: Performed By: #### Wilfred SINGLETON, L100.0100 #### [facility] [address] [place], [address] Neutrophils/100 WBC (Bld) 69.1 % Normal 47-70 [facility] Comment on above: Performed By: #### Wilfred SINGLETON, L100.0100 #### [facility] [address] [place], [address] Nucleated RBC (Bld) [#/Vol] 0 10*3/uL Normal 0-5 [facility] Comment on above: Performed By: #### Wilfred SINGLETON, L100.0100 #### [facility] [address] [place], [address] Platelet mean volume (Bld) [Entitic vol] 10.8 fL Normal 6.2-12.0 [facility] Comment on above: Performed By: #### Wilfred SINGLETON, L100.0100 #### [facility] [address] [place], [address] Platelets (Bld) [#/Vol] 219 10*3/uL Normal 150-450 [facility] Comment on above: Performed By: #### Wilfred SINGLETON, L100.0100 #### [facility] [address] [place], [address] RBC (Bld) [#/Vol] 3.72 10*6/uL Low 4.2-5.4 [facility] Comment on above: Performed By: #### Wilfred SINGLETON, L100.0100 #### [facility] [address] [place], [address] RDW SD 45.0 fl High 35.1-43.9 [facility] Comment on above: Performed By: #### B TS, L100.0100 #### [facility] [address] [place], [address] WBC (Bld) [#/Vol] 13.6 10*3/uL High 4.4-11.0 [facility] Comment on above: Performed By: #### B TS, L100.0100 #### [facility] [address] [place], [address] Discharge Instructionon 12-18 Discharge Instruction [facility] Medical Records Department [address] [place] [address] Instructions for Home/Discharge Instructions 12/28/22 0920 MR#: [id number] Acct: [id number] Name: CLARA SERRANO Rep #: [id number] : 1990 32 From: Lucila Boyle CNM PCP: Care Physician,No Primary Status:ADM IN Discharge Instructions Diet Discharge Diet: No restrictions Activity Discharge Activity: May Not Drive and May Shower May resume sexual activity in: 6 weeks Weight Bearing Status: Full weight bearing Dressing / Incision Call your doctor if your incision/area has: Sudden Increased Bleeding, Increased Pain/ Swelling and Foul Smelling Discharge Call your doctor if you observe: Fever of 101 or Higher, Numbness or Tingling, Change in Color, Inability to urinate, Inability to have a bowel movement, Using more than 1 pad per hour, Shortness of breath, Dizziness, Fainting spells, Chest pain, Calf discomfort and Uncontrolled pain Follow Up Care Please Follow Up With: Lucila Boyle CNM When: 6 weeks , please call office to make an appointment. Congratulations on the of your baby girl BENITA!!! Test Results: Test results from this visit will be discussed in further detail at your follow-up appointment, if applicable. Discharge Plan Admission Admit Date/Time: 12/27/22 22:27 Attending Provider: Lucila Boyle Primary Care Provider: Care Physician,No Primary Discharge Orders/Prescriptions Prescriptions: No Action vit,[id number]-wvxxp 1 TABLET tablet 1 tab PO DAILY Referrals / Follow Up: Care Physician,No Primary [Primary Care Provider] - 12/28/22920 Lucila Boyle CNM CC: No Primary Care Physician Signed Normal [facility] H AND P Exam - OB/GYNon 12-18 H&P Exam - CAKE WINDER [facility] Medical Records Department [address] [place] [address] H P Exam - CAKE WINDER 12/28/22 0519 MR#: [id number] Acct: [id number] Name: CLARA SERRANO Rep #: [id number] : 1990 32 From: Lucila Boyle CNM PCP: Annalise Physician,No Primary Status:ADM IN Location: [address] - General General Date of Admission: 12/27/22 HPI Narrative CLARA SERRANO, is a 32 F who presents at 39.2 with LOF since around 0500 12/27. no vb/ctx. good fm. GBS negative. uncomplicated course Maternal Data Information JOSEPHINE Calculator Estimated Delivery Date Method Current WG Current Estimate 01/01/23 LMP (Certain) 39w 3d Other Estimates 01/01/23 Ultrasound #1 39w 3d PFSH PFSH Medical History H/O miscarriage, currently hemorrhage Vaginal delivery Home Medications vits,calcium no.78-iron fumarate-folic acid 29 mg-1 mg tablet 1 tab PO DAILY 01/05/19 [History Last Taken 12/27/22] Allergy/AdvReac Type Severity Reaction Status Date / Time No Known Allergies Allergy Verified 12/27/22 21:41 Social History Smoking Status: Never smoker alcohol intake: never substance use type: does not use caffeine: No what type of physical activity do you participate in: aerobics and weight training frequency: 5-6 times per week seatbelt use: sometimes do you feel safe at home: Yes 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 History 3 Elective abortions Hx Para 2 Spontaneous abortions 1 Hx # Term Pregnancies Ectopic pregnancies Hx # Pregnancies Multiple births # of living children 2 Past Pregnancies Del. Date Name GA/Weeks Outcome Route Bth Weight Infant Gen Labor Lgth Anesthesia Del Vicente Provider FOB 01/06/19 Susana 40 live - full term 8lbs Female epidural [facility] [place] 01/28/21 Mathur 40 live - full term [facility] Katherine nthotrino Delivery Date: 01/06/19 Last Updated by: Tianna Burns RoM greater than 24 hours; 2 degree laceration Visit Details Expected Delivery Route/Plan Labor Preferences- CB/BF classes: [] labor support person: [] labor intervention preferences: [] pain management options preferred: [] cut cord/dad catch: [] : [] PP control planned: [] discussed possible routes of delivery and associated risks: [] special requests: [] Plans Covid status: unvaccinated Flu vaccine: declines Tdap vaccine: [] Rhogam: [] LARC form signed: [] Problem list reviewed and updated with the most current plan of care details and appropriate orders placed. Relevant counseling for the gestational age provided. Continue routine care and follow up unless otherwise noted in visit notes/problem list details OB Flowsheet Initial Weight: Not Recorded Date -???-???-???-???-???-?? ?-???-???-???-???-???-? ??- EGA Weight BP Urine Prot -???-???-???-???-???-?? ?-???-???-???-???-???-? ??- Glucose FHR FuHt Pres Dilation -???-???-???-???-???-?? ?-???-???-???-???-???-? ??- Effaced St Visit Note 05/22/22 -???-???-???-???-???-?? ?-???-???-???-???-???-? ??- 8w 0d 139 lb 124/76 -???-???-???-???-???-?? ?-???-???-???-???-???-? ??- 149 -???-???-???-???-???-?? ?-???-???-???-???-???-? ??- JV- single l sray IUP measuring 8 weeks 0 days consistent with LMP. 06/20/22 -???-???-???-???-???-?? ?-???-???-???-???-???-? ??- 12w 1d 140 lb 98/72 -???-???-???-???-???-?? ?-???-???-???-???-???-? ??- 160 -???-???-???-???-???-?? ?-???-???-???-???-???-? ??- JV- no cramp ing or pain. Normal NIPT (it's a girl!) 07/28/22 -???-???-???-???-???-?? ?-???-???-???-???-???-? ??- 17w 4d 147 lb 2 oz 96/64 Negative -???-???-???-???-???-?? ?-???-???-???-???-???-? ??- Negative 148 -???-???-???-???-???-?? ?-???-???-???-???-???-? ??- -No Vb, darby richardsoning. Denies concerns. Reviewed normal labs. 08/15/22 -???-???-???-???-???-?? ?-???-???-???-???-???-? ??- 20w 1d 152 lb 130/72 Negative -???-???-???-???-???-?? ?-???-???-???-???-???-? ??- Negative 144 -???-???-???-???-???-?? ?-???-???-???-???-???-? ??- JV- normal a natomy scan. pt having migraines without an aura. recommend tylenol, caffeine and suboccipital muscle release techniques 09/12/22 -???-???-???-???-???-?? ?-???-???-???-???-???-? ??- 24w 1d 154 lb 4 oz 99/56 Negative -???-???-???-???-???-?? ?-???-???-???-???-???-? ??- Negative 142 -???-???-???-???-???-?? ?-???-???-???-???-???-? ??- JV- no lof, vaginal bleeding, or dec fm. gct ordered. headaches resolved. 10/10/22 -???-???-???-???-???-?? ?-???-???-???-???-???-? ??- 28w 1d 156 lb 6 oz 101/68 Negative -???-???-???-???-???-?? ?-???-???-???-???- (more content not included)... Normal [facility] L509.8000on 12-28-2022 Syphilis Abs Non-Reactive Normal [facility] Comment on above: Performed By: #### L 509.8000 ####[facility] [id number] [place], [address] Operative Reporton 3 Operative Report [facility] Medical Records Department [address] [place] [address] Operative Report 12/28/22 0914 MR#: [id number] Acct: [id number] Name: CLARA SERRANO Rep #: [id number] : 1990 32 From: Lucila Boyle CNM PCP: Care Physician,No Primary Status:ADM IN Location: [place] [id number] Assessment Plan (1) (spontaneous vaginal delivery): COMMENT: 39 SROM . Benita. LC PLAN: routine pp orders. (2) SROM (spontaneous rupture of membranes): COMMENT: 0500 6/10 clear fluid, afebrile. Maternal Data Information JOSEPHINE Calculator Estimated Delivery Date Method Current WG Current Estimate 01/01/23 LMP (Certain) 39w 3d Other Estimates 01/01/23 Ultrasound #1 39w 3d Vaginal Delivery Maternal Presentation Maternal Presentation: Spontaneous Rupture of Membranes Maternal Presentation: pt presented at 39.2 with SROM since 5am. upon admission no cervical change from office exam. decision to start IOL. pt to a max pitocin, decel to 90s and found to be fully dilated +1 Type of Induction: Pitocin Operative Information Date of Procedure: 12/28/22 Pre-Operative Diagnosis: see admission A P Post-Operative Diagnosis: Surgery / Procedure Performed: Spontaneous Vaginal Delivery Type of Anesthesia: Epidural Drain: Painting to straight drain Estimated Blood Loss: 300 Time of Delivery: 08:28 Findings Description of Procedure: Patient began pushing and delivered the head in the HIRAM presentation. The head was delivered atraumatically. The anterior and posterior shoulders delivered without complication followed by the rest of the and the was placed on the maternal abdomen. Delayed cord clamping was employed for approximately 60 seconds. Cord was clamped and cut and gentle traction was applied to the cord and the placenta delivered spontaneously immediately following it was noted to be intact with three-vessel cord. The perineum and vagina were inspected and noted to have 1st degree laceration repaired with 3-0 Vicryl in typical fashion. EBL was 300cc. Patient and tolerated delivery well. Presentation: Vertex Amniotic Membrane Rupture Type: Spontaneous Time of Membrane Rupture: 0500 Amniotic Fluid Description: Clear Placental Delivery Description: Spontaneous Placenta Disposition: [facility] Cord Vessel Description: 3 Vessels Cord Entanglement: None A Gender: Female (1 minute): 8 (5 minute): 9 Delayed Cord Clamping: Yes Post Vaginal Delivery Medications Given After Delivery: IV Pitocin Episiotomy Description: None Laceration: 1st degree Addendum Addendum: CNM delivery 12/28/22919 Cosigner Signature (if applicable): CC: DARCY Boyle; No Primary Care Physician Signed [facility] Type AND Screenon 12-28-2022 Ab SCREEN GEL Negative [facility] Comment on above: Order Comment: Labor Performed By: #### B TS, L100.0100 #### [facility] [address] [place], [address] ABO and Rh group Nom (Bld) Blood group B Rh(D) positive [facility] Comment on above: Order Comment: Labor Performed By: #### B TS, L100.0100 #### [facility] [address] [place], [address] OB Triage Progress Noteon OB Triage Progress Note [facility] Medical Records Department [address] [place] [address] OB Triage Progress Note 12/26/22 0153 MR#: [id number] Acct: [id number] Name: CLARA SERRANO Rep #: [id number] : 1990 32 From: Peace Wagoner MD PCP: Care Physician,No Primary Status:DEP CLI Y DOS: Location: [facility]OUT Progress Notes Date of Service: 12/22/22 Progress Note: Patient presents for triage evaluation secondary to possible ROM FHT: 140 Moderate variability reactive no decelerations category I tracing Admire: irregular Contractions Assessment and plan: amniotic membranes intact false labor nl growth and fluid Reactive NST, reassuring maternal and status patient discharged to home to follow-up as scheduled. See problem list details for additional plan information. Laboratory Studies: Laboratory Tests 12/22/22 Range/Units 07:30 Vag Amniotic Fld Detect Negative (Negative) Charges/Coding Procedures Urinary/Genital 52xxx-59xxx: 98659-91 non-stress test Interp 12/26/22 0154 Date Peace Wagoner MD Cosigner Signature (if applicable): Date CC: Dr. Peace Wagoner MD; No Primary Care Physician Signed [facility] Washing Machine Repairer Office Visit Reporton 12-26-2022 Washing Machine Repairer Office Visit Report [facility] [place] [address] [place] [address]. [address] [place] [address] OFFICE VISIT Date of Service: 12/26/22 MR#: [id number] Acct: [id number] Name: CLARA SERRANO Rep #: [id number] : 1990 Provider: Dr. Nasra Verdin DO Age/Sex: 32/F Location: [facility] Status: Signed Intake Vital Signs 05/22/22 15:50 12/22/22 07:34 12/26/22 15:28 12/26/22 15:30 Height 5 ft 6.5 in 5 ft 7 in 5 ft 7 in 5 ft 7 in Weight: 167 lb 166 lb 4 oz BMI 26.2 26.0 BP 126/70 H Blood Pressure Location Lt brachial Position Sitting Intake Visit Reasons: est ob 39w 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 Is patient in pain?: No Allergies No Known Allergies Allergy (Verified 12/26/22 15:26) Medications vits,calcium no.78-iron fumarate-folic acid 29 mg-1 mg tablet 1 tab PO DAILY 01/05/19 [History Confirmed 12/26/22] Last Menstrual Period: 03/27/22 Zika: Zika virus screening: Negative : No PFSH PFSH Medical History H/O miscarriage, currently hemorrhage Vaginal delivery Social History Smoking Status: Never smoker alcohol intake: never substance use type: does not use caffeine: No what type of physical activity do you participate in: aerobics and weight training frequency: 5-6 times per week seatbelt use: sometimes do you feel safe at home: Yes 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 Date Name GA/Weeks Outcome Route Bth Weight Infant Gen Labor Lgth Anesthesia Del Locatn Provider FOB 01/06/19 Susana 40 live - full term 8lbs Female epidural [facility] [place] 01/28/21 Mathur 40 live - full term [facility] Katherine nthotrino Delivery Date: 01/06/19 Last Updated by: Tianna Burns RoM greater than 24 hours; 2 degree laceration HPI est ob 39w Details: CLARA SERRANO is a 32 year old who presents for routine OB visit. OB Visit JOSEPHINE Calculator Estimated Delivery Date Method Current WG Current Estimate 01/01/23 LMP (Certain) 39w 1d Other Estimates 01/01/23 Ultrasound #1 39w 1d Expected Delivery Route/Plan Labor Preferences- CB/BF classes: [] labor support person: [] labor intervention preferences: [] pain management options preferred: [] cut cord/dad catch: [] : [] PP control planned: [] discussed possible routes of delivery and associated risks: [] special requests: [] Specific Issue/Plans Covid status: unvaccinated Flu vaccine: declines Tdap vaccine: [] Rhogam: [] LARC form signed: [] Problem list reviewed and updated with the most current plan of care details and appropriate orders placed. Relevant counseling for the gestational age provided. Continue routine care and follow up unless otherwise noted in visit notes/problem list details Initial Weight: Not Recorded Date -???-???-???-???-???-?? ?-???-???-???-???-???-? ??- EGA Weight BP Urine Prot -???-???-???-???-???-?? ?-???-???-???-???-???-? ??- Glucose FHR FuHt Pres Dilation -???-???-???-???-???-?? ?-???-???-???-???-???-? ??- Effaced St Visit Note 05/22/22 -???-???-???-???-???-?? ?-???-???-???-???-???-? ??- 8w 0d 139 lb 124/76 -???-???-???-???-???-?? ?-???-???-???-???-???-? ??- 149 -???-???-???-???-???-?? ?-???-???-???-???-???-? ??- JV- single l sary IUP measuring 8 weeks 0 days consistent with LMP. 06/20/22 -???-???-???-???-???-?? ?-???-???-???-???-???-? ??- 12w 1d 140 lb 98/72 -???-???-???-???-???-?? ?-???-???-???-???-???-? ??- 160 -???-???-???-???-???-?? ?-???-???-???-???-???-? ??- JV- no cramp ing or pain. Normal NIPT (it's a girl!) 07/28/22 -???-???-???-???-???-?? ?-???-???-???-???-???-? ??- 17w 4d 147 lb 2 oz 96/64 Negative -???-???-???-???-???-?? ?-???-???-???-???-???-? ??- Negative 148 -???-???-???-???-???-?? ?-???-???-???-???-???-? ??- MH-No Vb, cr amping. Denies concerns. Reviewed normal labs. 08/15/22 -???-???-???-???-???-?? ?-???-???-???-???-???-? ??- 20w 1d 152 lb 130/72 Negative -???-???-???-???-???-?? ?-???-???-???-???-???-? ??- Negative 144 -???-???-???-???-???-?? ?-???-???-???-???-???-? ??- JV- normal a natomy scan. pt having migraines without an aura. recommend tylenol, caffeine and suboccipital muscle release techniques 09/12/22 -???-???-???-???-???-?? ?-???-???-???-???-???-? ??- 24w 1d 154 lb 4 oz 99/56 Negative -???-???-???-???-???-?? ?-???-???-???-???-???-? ??- Negative 142 - (more content not included)... [facility] (ROM) Rupture Of Membraneson 12-22-2022 ROM Negative Normal Negative [facility] Comment on above: Result Comment: Amni otic fluid not present indicates No Rupture of Membranes at time of specimen collection. Performed By: #### L 205.1000 ####[facility] [id number] [facility] [place], [address] No Panel InformationOrdered By: Dr. Wagoner on 12-22-2022 Vaginal Amniotic Fluid Detection Negative Negative [facility] Comment on above: Amniotic fluid not p resent indicates No Rupture of FetalMembranes at time of specimen collection. OB Limited With Biometricson 12-22-2022 OB Limited With Biometrics [facility] Imaging Services [address] [place] [address] OB Limited With Biometrics MR#: [id number] Acct: [id number] Name: CLARA SERRANO Rep #: [id number] : 1990 F 32 From: Jez stephenson MD PCP: Care Physician,No Primary Status: DEP CLI Study: OB Limited With Biometrics Date of Exam: 12/22 Exam# [id number] Ordering Dr: Peace Wagoner STUDY: SECOND AND THIRD TRIMESTER OBSTETRICAL ULTRASOUND - LIMITED REASON FOR EXAM: Female, 32 years old growth ultrasound LMP: March 27, 2022. PRIOR ULTRASOUND: Comparison is made with prior study dated August 08, 2022. TECHNIQUE: Transabdominal TECHNICAL QUALITY: Adequate. FINDINGS: There is a single intrauterine fetus. The fetus is in a cephalic presentation. There is demonstrated cardiac activity with a heart rate of 135 bpm. There is a normal amniotic fluid volume. The largest amniotic fluid pocket measures 4.1 cm. The amniotic fluid index (ITALIA) is 15 point cm. The placenta is fundal and posterior in location. There are Grade 2 placental changes. The cervix was not measured due to the head positioning. BIOMETRY: BPD: 9.1 cm: 37 weeks, 0 days HC: 33.7 cm: 38 weeks, 4 days AC: 35.3 cm: 39 weeks, 1 days FL: 7.3 cm: 37 weeks, 2 days Age by LMP: 38 weeks, 4 days. JOSEPHINE by LMP: January 01, 2023. age by prior US: 38 weeks, 1 days. JOSEPHINE by prior US: January 04, 2023. age by current US: 38 weeks, 0 days. JOSEPHINE by current US: January 05, 2023. Estimated weight: 3497 grams, +/- 525 grams, 63 percentile. US/OB Limited With Biometrics IMPRESSION: Single live uterine gestation with a mean gestational age of 38 weeks and 1 day. The measurements obtained today following within the normal expected range. Electronically Signed: Jez Rebollar MD at 12:56 EDT Reading Location ID and State: [facility] / [place] , Service support , CC: Dr. Peace Wagoner MD; No Primary Care Physician Digital Operations Analyst: Signed [facility] Washing Machine Repairer Office Visit Reporton 12-19-2022 Washing Machine Repairer Office Visit Report [facility] [address] [place] [address] OFFICE VISIT Date of Service: 12/19/22 MR#: [id number] Acct: [id number] Name: CLARA SERRANO Rep #: [id number] : 1990 Provider: Dr. Peace luong MD Age/Sex: 32/F Location: [facility] Status: Signed Intake Vital Signs 05/22/22 15:50 12/19/22 15:41 Height 5 ft 6.5 in 5 ft 6.5 in Weight: 166 lb BMI 26.4 BP 107/72 Intake Visit Reasons: est ob 38w 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 Accompanied by: Daughter Is patient in pain?: No Allergies No Known Allergies Allergy (Verified 12/19/22 15:42) Medications vits,calcium no.78-iron fumarate-folic acid 29 mg-1 mg tablet 1 tab PO DAILY 01/05/19 [History Confirmed 12/19/22] Last Menstrual Period: 03/27/22 Current gender identity: female Zika: Zika virus screening: Negative : No PFSH PFSH Medical History H/O miscarriage, currently hemorrhage Vaginal delivery Social History current gender identity: female Smoking Status: Never smoker alcohol intake: never substance use type: does not use caffeine: No what type of physical activity do you participate in: aerobics and weight training frequency: 5-6 times per week seatbelt use: sometimes do you feel safe at home: Yes 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 History 3 Elective abortions Hx Para 2 Spontaneous abortions 1 Hx # Term Pregnancies Ectopic pregnancies Hx # Pregnancies Multiple births # of living children 2 Past Pregnancies Del. Date Name GA/Weeks Outcome Route Bth Weight Gen Labor Lgth Anesthesia Del Locatn Provider FOB 01/06/19 Susana 40 live - full term 8lbs Female epidural [facility] [place] 01/28/21 Mathur 40 live - full term [facility] [place] betrino Delivery Date: 01/06/19 Last Updated by: Tianna Burns RoM greater than 24 hours; 2 degree laceration HPI est ob 38w Details: CLARA SERRANO is a 32 year old who presents for routine OB visit. OB Visit JOSEPHINE Calculator Estimated Delivery Date Method Current WG Current Estimate 01/01/23 LMP (Certain) 38w 1d Other Estimates 01/01/23 Ultrasound #1 38w 1d Expected Delivery Route/Plan Labor Preferences- CB/BF classes: [] labor support person: [] labor intervention preferences: [] pain management options preferred: [] cut cord/dad catch: [] : [] PP control planned: [] discussed possible routes of delivery and associated risks: [] special requests: [] Specific Issue/Plans Covid status: unvaccinated Flu vaccine: declines Tdap vaccine: [] Rhogam: [] LARC form signed: [] Problem list reviewed and updated with the most current plan of care details and appropriate orders placed. Relevant counseling for the gestational age provided. Continue routine care and follow up unless otherwise noted in visit notes/problem list details Initial Weight: Not Recorded Date -???-???-???-???-???-?? ?-???-???-???-???-???-? ??- EGA Weight BP Urine Prot -???-???-???-???-???-?? ?-???-???-???-???-???-? ??- Glucose FHR FuHt Pres Dilation -???-???-???-???-???-?? ?-???-???-???-???-???-? ??- Effaced St Visit Note 05/22/22 -???-???-???-???-???-?? ?-???-???-???-???-???-? ??- 8w 0d 139 lb 124/76 -???-???-???-???-???-?? ?-???-???-???-???-???-? ??- 149 -???-???-???-???-???-?? ?-???-???-???-???-???-? ??- JV- single l sary IUP measuring 8 weeks 0 days consistent with LMP. 06/20/22 -???-???-???-???-???-?? ?-???-???-???-???-???-? ??- 12w 1d 140 lb 98/72 -???-???-???-???-???-?? ?-???-???-???-???-???-? ??- 160 -???-???-???-???-???-?? ?-???-???-???-???-???-? ??- JV- no cramp ing or pain. Normal NIPT (it's a girl!) 07/28/22 -???-???-???-???-???-?? ?-???-???-???-???-???-? ??- 17w 4d 147 lb 2 oz 96/64 Negative -???-???-???-???-???-?? ?-???-???-???-???-???-? ??- Negative 148 -???-???-???-???-???-?? ?-???-???-???-???-???-? ??- MH-No Vb, cr amping. Denies concerns. Reviewed normal labs. 08/15/22 -???-???-???-???-???-?? ?-???-???-???-???-???-? ??- 20w 1d 152 lb 130/72 Negative -???-???-???-???-???-?? ?-???-???-???-???-???-? ??- Negative 144 -???-???-???-???-???-?? ?-???-???-???-???-???-? ??- JV- normal a natomy scan. pt having migraines without an aura. recommend tylenol, caffeine and suboccipital muscle release techniques 09/12/22 -???-???-???-???-???-?? ?-???-???-???-???-???-? ??- 24w 1d 154 lb 4 oz 99/56 Negative -???-???-???-???-???-?? ?-???-???-???-???-???-? ??- Negative 142 -???-???-???-???-???-?? ?-???-???-???-???-? (more content not included)... Normal [facility] Washing Machine Repairer Office Visit Reporton 12-12-2022 Washing Machine Repairer Office Visit Report [facility] [address] [place] [address] OFFICE VISIT Date of Service: 12/12/22 MR#: [id number] Acct: [id number] Name: CLARA SERRANO Rep #: [id number] : 1990 Provider: Dr. Nasra Verdin DO Age/Sex: 32/F Location: [facility] Status: Signed Intake Vital Signs 05/22/22 15:50 12/12/22 15:26 12/12/22 15:26 Height 5 ft 6.5 in 5 ft 6.5 in 5 ft 6.5 in Weight: 168 lb BMI 26.6 BP 121/74 H Intake Visit Reasons: est ob 37w 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 Is patient in pain?: No Allergies No Known Allergies Allergy (Verified 12/12/22 15:25) Medications vits,calcium no.78-iron fumarate-folic acid 29 mg-1 mg tablet 1 tab PO DAILY 01/05/19 [History Confirmed 12/12/22] Last Menstrual Period: 03/27/22 Zika: Zika virus screening: Negative : No PFSH PFSH Medical History H/O miscarriage, currently hemorrhage Vaginal delivery Social History Smoking Status: Never smoker alcohol intake: never substance use type: does not use caffeine: No what type of physical activity do you participate in: aerobics and weight training frequency: 5-6 times per week seatbelt use: sometimes do you feel safe at home: Yes 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 Date Name GA/Weeks Outcome Route Bth Weight Infant Gen Labor Lgth Anesthesia Del Locatn Provider FOB 01/06/19 Ussana 40 live - full term 8lbs Female epidural [facility] [place] 01/28/21 Mathur 40 live - full term [facility] Katherine nthotrino Delivery Date: 01/06/19 Last Updated by: Tianna Burns RoM greater than 24 hours; 2 degree laceration HPI est ob 37w Details: CLARA SERRANO is a 32 year old who presents for routine OB visit. OB Visit JOSEPHINE Calculator Estimated Delivery Date Method Current WG Current Estimate 01/01/23 LMP (Certain) 37w 1d Other Estimates 01/01/23 Ultrasound #1 37w 1d Expected Delivery Route/Plan Labor Preferences- CB/BF classes: [] labor support person: [] labor intervention preferences: [] pain management options preferred: [] cut cord/dad catch: [] : [] PP control planned: [] discussed possible routes of delivery and associated risks: [] special requests: [] Specific Issue/Plans Covid status: unvaccinated Flu vaccine: declines Tdap vaccine: [] Rhogam: [] LARC form signed: [] Problem list reviewed and updated with the most current plan of care details and appropriate orders placed. Relevant counseling for the gestational age provided. Continue routine care and follow up unless otherwise noted in visit notes/problem list details Initial Weight: Not Recorded Date -???-???-???-???-???-?? ?-???-???-???-???-???-? ??- EGA Weight BP Urine Prot -???-???-???-???-???-?? ?-???-???-???-???-???-? ??- Glucose FHR FuHt Pres Dilation -???-???-???-???-???-?? ?-???-???-???-???-???-? ??- Effaced St Visit Note 05/22/22 -???-???-???-???-???-?? ?-???-???-???-???-???-? ??- 8w 0d 139 lb 124/76 -???-???-???-???-???-?? ?-???-???-???-???-???-? ??- 149 -???-???-???-???-???-?? ?-???-???-???-???-???-? ??- JV- single l sary IUP measuring 8 weeks 0 days consistent with LMP. 06/20/22 -???-???-???-???-???-?? ?-???-???-???-???-???-? ??- 12w 1d 140 lb 98/72 -???-???-???-???-???-?? ?-???-???-???-???-???-? ??- 160 -???-???-???-???-???-?? ?-???-???-???-???-???-? ??- JV- no cramp ing or pain. Normal NIPT (it's a girl!) 07/28/22 -???-???-???-???-???-?? ?-???-???-???-???-???-? ??- 17w 4d 147 lb 2 oz 96/64 Negative -???-???-???-???-???-?? ?-???-???-???-???-???-? ??- Negative 148 -???-???-???-???-???-?? ?-???-???-???-???-???-? ??- -No Vb, cr amping. Denies concerns. Reviewed normal labs. 08/15/22 -???-???-???-???-???-?? ?-???-???-???-???-???-? ??- 20w 1d 152 lb 130/72 Negative -???-???-???-???-???-?? ?-???-???-???-???-???-? ??- Negative 144 -???-???-???-???-???-?? ?-???-???-???-???-???-? ??- JV- normal a natomy scan. pt having migraines without an aura. recommend tylenol, caffeine and suboccipital muscle release techniques 09/12/22 -???-???-???-???-???-?? ?-???-???-???-???-???-? ??- 24w 1d 154 lb 4 oz 99/56 Negative -???-???-???-???-???-?? ?-???-???-???-???-???-? ??- Negative 142 -???-???-???-???-???-?? ?-???-???-???-???-???-? ??- JV- no lof, vaginal bleeding, or dec fm. gct ord (more content not included)... Normal [facility] No Panel InformationOrdered By: Dr. Wagoner on 12-08-2022 Group B Streptococcus Culture Group B Beta Streptococcus is not isolated. [facility] Rule out Beta Strep (Grp. B) on 12-07-2022 JEFFREY Group B Beta Streptococcus is not isolated. Normal [facility] Comment on above: Performed By: #### M 100.4750 ####[facility] [address] [place], [address] Laboratory - Chemistry and C hemistry - challengeon 12-05-2022 Glucose Ql (U) Negative [facility] - Urinalysison Protein Ql (U) Negative [facility] Washing Machine Repairer Office Visit Reporton 12-05-2022 Washing Machine Repairer Office Visit Report [facility] [address] [place] [address] OFFICE VISIT Date of Service: 12/05/22 MR#: [id number] Acct: [id number] Name: CLARA SERRANO Rep #: [id number] : 1990 Provider: Dr. Peace luong MD Age/Sex: 32/F Location: [facility] Status: Signed Intake Vital Signs 05/22/22 15:50 12/05/22 15:32 12/05/22 15:40 Height 5 ft 6.5 in 5 ft 6.5 in 5 ft 6.5 in Weight: 162 lb BMI 25.7 BP 94/61 Intake Visit Reasons: est 36w Chief Complaint: 36 Week OB 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 Is patient in pain?: No Allergies No Known Allergies Allergy (Verified 12/05/22 15:32) Medications vits,calcium no.78-iron fumarate-folic acid 29 mg-1 mg tablet 1 tab PO DAILY 01/05/19 [History Confirmed 12/05/22] Last Menstrual Period: 03/27/22 Zika: Zika virus screening: Negative : No PFSH PFSH Medical History H/O miscarriage, currently hemorrhage Vaginal delivery Social History Smoking Status: Never smoker alcohol intake: never substance use type: does not use caffeine: No what type of physical activity do you participate in: aerobics and weight training frequency: 5-6 times per week seatbelt use: sometimes do you feel safe at home: Yes 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 Date Name GA/Weeks Outcome Route Bth Weight Gen Labor Lgth Anesthesia Del Locatn Provider FOB 01/06/19 Susana 40 live - full term 8lbs Female epidural [facility] [place] 01/28/21 Mathur 40 live - full term [facility] Katherine nthotrino Delivery Date: 01/06/19 Last Updated by: Tianna Burns RoM greater than 24 hours; 2 degree laceration HPI est 36w Details: CLARA SERRANO is a 32 year old who presents for routine OB visit. OB Visit JOSEPHINE Calculator Estimated Delivery Date Method Current WG Current Estimate 01/01/23 LMP (Certain) 36w 1d Other Estimates 01/01/23 Ultrasound #1 36w 1d Expected Delivery Route/Plan Labor Preferences- CB/BF classes: [] labor support person: [] labor intervention preferences: [] pain management options preferred: [] cut cord/dad catch: [] : [] PP control planned: [] discussed possible routes of delivery and associated risks: [] special requests: [] Specific Issue/Plans Covid status: unvaccinated Flu vaccine: declines Tdap vaccine: [] Rhogam: [] LARC form signed: [] Problem list reviewed and updated with the most current plan of care details and appropriate orders placed. Relevant counseling for the gestational age provided. Continue routine care and follow up unless otherwise noted in visit notes/problem list details Initial Weight: Not Recorded Date -???-???-???-???-???-?? ?-???-???-???-???-???-? ??- EGA Weight BP Urine Prot -???-???-???-???-???-?? ?-???-???-???-???-???-? ??- Glucose FHR FuHt Pres Dilation -???-???-???-???-???-?? ?-???-???-???-???-???-? ??- Effaced St Visit Note 05/22/22 -???-???-???-???-???-?? ?-???-???-???-???-???-? ??- 8w 0d 139 lb 124/76 -???-???-???-???-???-?? ?-???-???-???-???-???-? ??- 149 -???-???-???-???-???-?? ?-???-???-???-???-???-? ??- JV- single l sary IUP measuring 8 weeks 0 days consistent with LMP. 06/20/22 -???-???-???-???-???-?? ?-???-???-???-???-???-? ??- 12w 1d 140 lb 98/72 -???-???-???-???-???-?? ?-???-???-???-???-???-? ??- 160 -???-???-???-???-???-?? ?-???-???-???-???-???-? ??- JV- no cramp ing or pain. Normal NIPT (it's a girl!) 07/28/22 -???-???-???-???-???-?? ?-???-???-???-???-???-? ??- 17w 4d 147 lb 2 oz 96/64 Negative -???-???-???-???-???-?? ?-???-???-???-???-???-? ??- Negative 148 -???-???-???-???-???-?? ?-???-???-???-???-???-? ??- MH-No Vb, cr amping. Denies concerns. Reviewed normal labs. 08/15/22 -???-???-???-???-???-?? ?-???-???-???-???-???-? ??- 20w 1d 152 lb 130/72 Negative -???-???-???-???-???-?? ?-???-???-???-???-???-? ??- Negative 144 -???-???-???-???-???-?? ?-???-???-???-???-???-? ??- JV- normal a natomy scan. pt having migraines without an aura. recommend tylenol, caffeine and suboccipital muscle release techniques 09/12/22 -???-???-???-???-???-?? ?-???-???-???-???-???-? ??- 24w 1d 154 lb 4 oz 99/56 Negative -???-???-???-???-???-?? ?-???-???-???-???-???-? ??- Negative 142 -???-???-???-???-???-?? ?-???-???-???-???-???-? ??- JV- no lof, vaginal bleedin (more content not included)... Normal [facility] Washing Machine Repairer Office Visit Reporton 11-19-2022 Washing Machine Repairer Office Visit Report [facility] [address] [place] [address] OFFICE VISIT Date of Service: 11/19/22 MR#: [id number] Acct: [id number] Name: CLARA SERRANO Rep #: [id number] : 1990 Provider: QASIM webb Age/Sex: 32/F Location: [facility] Status: Signed Intake Vital Signs 05/22/22 15:50 11/19/22 11:16 11/19/22 11:25 Height 5 ft 6.5 in 5 ft 6.5 in 5 ft 6.5 in Weight: 164 lb 2 oz BMI 26.1 BP 116/76 Intake Visit Reasons: est ob 34w 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 Is patient in pain?: No Allergies No Known Allergies Allergy (Verified 11/19/22 11:26) Medications vits,calcium no.78-iron fumarate-folic acid 29 mg-1 mg tablet 1 tab PO DAILY 01/05/19 [History Confirmed 11/19/22] Last Menstrual Period: 03/27/22 Zika: Zika virus screening: Negative : No PFSH PFSH Medical History H/O miscarriage, currently hemorrhage Vaginal delivery Social History Smoking Status: Never smoker alcohol intake: never substance use type: does not use caffeine: No what type of physical activity do you participate in: aerobics and weight training frequency: 5-6 times per week seatbelt use: sometimes do you feel safe at home: Yes 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 History 3 Elective abortions Hx Para 2 Spontaneous abortions 1 Hx # Term Pregnancies Ectopic pregnancies Hx # Pregnancies Multiple births # of living children 2 Past Pregnancies Del. Date Name GA/Weeks Outcome Route Bth Weight Gen Labor Lgth Anesthesia Del Locatn Provider FOB 01/06/19 Susana 40 live - full term 8lbs Female epidural [facility] [place] 01/28/21 Mathur 40 live - full term [facility] Katherine luong Delivery Date: 01/06/19 Last Updated by: Tianna Burns RoM greater than 24 hours; 2 degree laceration HPI est ob 34w Details: CLARA SERRANO is a 32 year old who presents for routine OB visit. OB Visit JOSEPHINE Calculator Estimated Delivery Date Method Current WG Current Estimate 01/01/23 LMP (Certain) 33w 6d Other Estimates 01/01/23 Ultrasound #1 33w 6d Expected Delivery Route/Plan Labor Preferences- CB/BF classes: [] labor support person: [] labor intervention preferences: [] pain management options preferred: [] cut cord/dad catch: [] : [] PP control planned: [] discussed possible routes of delivery and associated risks: [] special requests: [] Specific Issue/Plans Covid status: unvaccinated Flu vaccine: declines Tdap vaccine: [] Rhogam: [] LARC form signed: [] Problem list reviewed and updated with the most current plan of care details and appropriate orders placed. Relevant counseling for the gestational age provided. Continue routine care and follow up unless otherwise noted in visit notes/problem list details Initial Weight: Not Recorded Date -???-???-???-???-???-?? ?-???-???-???-???-???-? ??- EGA Weight BP Urine Prot -???-???-???-???-???-?? ?-???-???-???-???-???-? ??- Glucose FHR FuHt Pres Dilation -???-???-???-???-???-?? ?-???-???-???-???-???-? ??- Effaced St Visit Note 05/22/22 -???-???-???-???-???-?? ?-???-???-???-???-???-? ??- 8w 0d 139 lb 124/76 -???-???-???-???-???-?? ?-???-???-???-???-???-? ??- 149 -???-???-???-???-???-?? ?-???-???-???-???-???-? ??- JV- single l sary IUP measuring 8 weeks 0 days consistent with LMP. 06/20/22 -???-???-???-???-???-?? ?-???-???-???-???-???-? ??- 12w 1d 140 lb 98/72 -???-???-???-???-???-?? ?-???-???-???-???-???-? ??- 160 -???-???-???-???-???-?? ?-???-???-???-???-???-? ??- JV- no cramp ing or pain. Normal NIPT (it's a girl!) 07/28/22 -???-???-???-???-???-?? ?-???-???-???-???-???-? ??- 17w 4d 147 lb 2 oz 96/64 Negative -???-???-???-???-???-?? ?-???-???-???-???-???-? ??- Negative 148 -???-???-???-???-???-?? ?-???-???-???-???-???-? ??- MH-No Vb, cr amping. Denies concerns. Reviewed normal labs. 08/15/22 -???-???-???-???-???-?? ?-???-???-???-???-???-? ??- 20w 1d 152 lb 130/72 Negative -???-???-???-???-???-?? ?-???-???-???-???-???-? ??- Negative 144 -???-???-???-???-???-?? ?-???-???-???-???-???-? ??- JV- normal a natomy scan. pt having migraines without an aura. recommend tylenol, caffeine and suboccipital muscle release techniques 09/12/22 -???-???-???-???-???-?? ?-???-???-???-???-???-? ??- 24w 1d 154 lb 4 oz 99/56 Negative -???-???-???-???-???-?? ?-???-???-???-???-???-? ??- Negative 142 -???-???-???-???-???-?? ?-???-???-???-???-???-? ??- JV- no lof, vaginal bleeding, or dec fm. gct ordered. (more content not included)... Normal [facility] Washing Machine Repairer Office Visit Reporton 10-20-2022 Washing Machine Repairer Office Visit Report [facility] [address] [place] [address] OFFICE VISIT Date of Service: 10/20/22 MR#: [id number] Acct: [id number] Name: ZACHCLARA Sacha HUGHES Rep #: [id number] : 1990 Provider: Dr. Peace luong MD Age/Sex: 32/F Location: [facility] Status: Signed Intake Vital Signs 05/22/22 15:50 10/20/22 15:37 10/20/22 15:41 Height 5 ft 6.5 in 5 ft 6.5 in 5 ft 6.5 in Weight: 156 lb 6 oz BMI 24.8 BP 105/67 Intake Visit Reasons: est ob 30w 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 Is patient in pain?: No Allergies No Known Allergies Allergy (Verified 10/20/22 15:41) Medications vits,calcium no.78-iron fumarate-folic acid 29 mg-1 mg tablet 1 tab PO DAILY 01/05/19 [History Confirmed 10/20/22] Last Menstrual Period: 03/27/22 Zika: Zika virus screening: Negative : No PFSH PFSH Medical History H/O miscarriage, currently hemorrhage Vaginal delivery Social History Smoking Status: Never smoker alcohol intake: never substance use type: does not use caffeine: No what type of physical activity do you participate in: aerobics and weight training frequency: 5-6 times per week seatbelt use: sometimes do you feel safe at home: Yes 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 History 3 Elective abortions Hx Para 2 Spontaneous abortions 1 Hx # Term Pregnancies Ectopic pregnancies Hx # Pregnancies Multiple births # of living children 2 Past Pregnancies Del. Date Name GA/Weeks Outcome Route Bth Weight Infant Gen Labor Lgth Anesthesia Del Locatn Provider FOB 01/06/19 Susana 40 live - full term 8lbs Female epidural [facility] [place] 01/28/21 Mathur 40 live - full term [facility] Katherine luong Delivery Date: 01/06/19 Last Updated by: Tianna Burns RoM greater than 24 hours; 2 degree laceration HPI est ob 30w Details: CLARA SERRANO is a 32 year old who presents for routine OB visit. OB Visit JOSEPHINE Calculator Estimated Delivery Date Method Current WG Current Estimate 01/01/23 LMP (Certain) 29w 4d Other Estimates 01/01/23 Ultrasound #1 29w 4d Expected Delivery Route/Plan Labor Preferences- CB/BF classes: [] labor support person: [] labor intervention preferences: [] pain management options preferred: [] cut cord/dad catch: [] : [] PP control planned: [] discussed possible routes of delivery and associated risks: [] special requests: [] Specific Issue/Plans Covid status: unvaccinated Flu vaccine: declines Tdap vaccine: [] Rhogam: [] LARC form signed: [] Problem list reviewed and updated with the most current plan of care details and appropriate orders placed. Relevant counseling for the gestational age provided. Continue routine care and follow up unless otherwise noted in visit notes/problem list details Initial Weight: Not Recorded Date -???-???-???-???-???-?? ?-???-???-???-???-???-? ??- EGA Weight BP Urine Prot -???-???-???-???-???-?? ?-???-???-???-???-???-? ??- Glucose FHR FuHt Pres Dilation -???-???-???-???-???-?? ?-???-???-???-???-???-? ??- Effaced St Visit Note 05/22/22 -???-???-???-???-???-?? ?-???-???-???-???-???-? ??- 8w 0d 139 lb 124/76 -???-???-???-???-???-?? ?-???-???-???-???-???-? ??- 149 -???-???-???-???-???-?? ?-???-???-???-???-???-? ??- JV- single l sary IUP measuring 8 weeks 0 days consistent with LMP. 06/20/22 -???-???-???-???-???-?? ?-???-???-???-???-???-? ??- 12w 1d 140 lb 98/72 -???-???-???-???-???-?? ?-???-???-???-???-???-? ??- 160 -???-???-???-???-???-?? ?-???-???-???-???-???-? ??- JV- no cramp ing or pain. Normal NIPT (it's a girl!) 07/28/22 -???-???-???-???-???-?? ?-???-???-???-???-???-? ??- 17w 4d 147 lb 2 oz 96/64 Negative -???-???-???-???-???-?? ?-???-???-???-???-???-? ??- Negative 148 -???-???-???-???-???-?? ?-???-???-???-???-???-? ??- MH-No Vb, cr amping. Denies concerns. Reviewed normal labs. 08/15/22 -???-???-???-???-???-?? ?-???-???-???-???-???-? ??- 20w 1d 152 lb 130/72 Negative -???-???-???-???-???-?? ?-???-???-???-???-???-? ??- Negative 144 -???-???-???-???-???-?? ?-???-???-???-???-???-? ??- JV- normal a natomy scan. pt having migraines without an aura. recommend tylenol, caffeine and suboccipital muscle release techniques 09/12/22 -???-???-???-???-???-?? ?-???-???-???-???-???-? ??- 24w 1d 154 lb 4 oz 99/56 Negative -???-???-???-???-???-?? ?-???-???-???-???-???-? ??- Negative 142 -???-???-???-???-???-?? ?-???-???-???-???-???-? ??- JV- no lof, vaginal bleeding, or dec fm. gct or (more content not included)... Normal [facility] Absolute lymphocyte countOrd ered By: Dr. Lee on 10-10-2022 Lymphocytes Auto (Unsp spec) [#/Vol] 1.73 10*3/uL 0.83-4.51 [facility] Basophil percentageOrdered B y: Dr. Lee on 10-10-2022 Basophils/100 WBC (Bld) 0.2 % 0-1 [facility] Eosinophils/100 WBC (Bld) 0.5 % 0-5 [facility] Neutrophils (Bld) [#/Vol] 9.1 10*3/uL 2.0-7.7 [facility] Neutrophils/100 WBC (Bld) 79.4 % 47-70 [facility] WBC (Bld) [#/Vol] 11.5 10*3/uL 4.4-11.0 [facility] Blood erythrocytes count (nu mber/volume)Ordered By: Dr. Lee on 10-10-2022 RBC (Bld) [#/Vol] 4.38 10*6/uL 4.2-5.4 [facility] Blood hemoglobin measurement (mass/volume)Ordered By: Dr. Lee on 10-10-2022 Hemoglobin (Bld) [Mass/Vol] 13.3 g/dL 12.0-15.0 [facility] Blood lymphocytes/100 leukoc ytesOrdered By: Dr. Lee on 10-10-2022 Lymphocytes/100 WBC (Bld) 15.0 % 19-41 [facility] Blood monocytes/100 leukocyt esOrdered By: Dr. Lee on 10-10-2022 Monocytes/100 WBC (Bld) 3.9 % 0-10 [facility] Blood platelet mean volumeOr dered By: Dr. Lee on 10-10-2022 Platelet mean volume (Bld) [Entitic vol] 10.4 fL 6.2-12.0 [facility] CBC W/Diff, Automatedon 09-18 Absolute Lymph 1.73 X10 3/uL Normal 0.83-4.51 [facility] Comment on above: Performed By: #### L 509.8000, L501.0250, L3890.6005, L100.0100 #### [facility] [address] [place], [address] Absolute Neut 9.1 X10 3/uL High 2.0-7.7 [facility] Comment on above: Performed By: #### L 509.8000, L501.0250, L3890.6005, L100.0100 #### [facility] [address] [place], [address] Basophils/100 WBC (Bld) 0.2 % Normal 0-1 [facility] Comment on above: Performed By: #### L 509.8000, L501.0250, L3890.6005, L100.0100 #### [facility] [address] [place], [address] Eosinophils/100 WBC (Bld) 0.5 % Normal 0-5 [facility] Comment on above: Performed By: #### L 509.8000, L501.0250, L3890.6005, L100.0100 #### [facility] [address] [place], [address] Erythrocyte distribution width (RBC) [Ratio] 13.0 % Normal 11.6-14.6 [facility] Comment on above: Performed By: #### L 509.8000, L501.0250, L3890.6005, L100.0100 #### [facility] [address] [place], [address] Hematocrit (Bld) [Volume fraction] 40.9 % Normal 37-47 [facility] Comment on above: Performed By: #### L 509.8000, L501.0250, L3890.6005, L100.0100 #### [facility] [address] [place], [address] Hemoglobin (Bld) [Mass/Vol] 13.3 g/dL Normal 12.0-15.0 [facility] Comment on above: Performed By: #### L 509.8000, L501.0250, L3890.6005, L100.0100 #### [facility] [address] [place], [address] IG% 1.000 High 0.0-0.9 [facility] Comment on above: Result Comment: IG% - Immature Granulocytes (promyelocytes, myelocytes and metamyelocytes) > 1% indicates that a LEFT SHIFT is Present. Performed By: #### L 509.8000, L501.0250, L3890.6005, L100.0100 #### [facility] [address] [place], [address] Lymphocytes/100 WBC (Bld) 15.0 % Low 19-41 [facility] Comment on above: Performed By: #### L 509.8000, L501.0250, L3890.6005, L100.0100 #### [facility] [address] [place], [address] MCH (RBC) [Entitic mass] 30.4 pg Normal 27.0-32.0 [facility] Comment on above: Performed By: #### L 509.8000, L501.0250, L3890.6005, L100.0100 #### [facility] [address] [place], [address] MCHC (RBC) [Mass/Vol] 32.5 g/dL Normal 32-36 [facility] Comment on above: Performed By: #### L 509.8000, L501.0250, L3890.6005, L100.0100 #### [facility] [address] [place], [address] MCV (RBC) [Entitic vol] 93.4 fL Normal 81-99 [facility] Comment on above: Performed By: #### L 509.8000, L501.0250, L3890.6005, L100.0100 #### [facility] [address] [place], [address] Monocytes/100 WBC (Bld) 3.9 % Normal 0-10 [facility] Comment on above: Performed By: #### L 509.8000, L501.0250, L3890.6005, L100.0100 #### [facility] [address] [place], [address] Neutrophils/100 WBC (Bld) 79.4 % High 47-70 [facility] Comment on above: Performed By: #### L 509.8000, L501.0250, L3890.6005, L100.0100 #### [facility] [address] [place], [address] Nucleated RBC (Bld) [#/Vol] 0 10*3/uL Normal 0-5 [facility] Comment on above: Performed By: #### L 509.8000, L501.0250, L3890.6005, L100.0100 #### [facility] [address] [place], [address] Platelet mean volume (Bld) [Entitic vol] 10.4 fL Normal 6.2-12.0 [facility] Comment on above: Performed By: #### L 509.8000, L501.0250, L3890.6005, L100.0100 #### [facility] [address] [place], [address] Platelets (Bld) [#/Vol] 253 10*3/uL Normal 150-450 [facility] Comment on above: Performed By: #### L 509.8000, L501.0250, L3890.6005, L100.0100 #### [facility] [address] [place], [address] RBC (Bld) [#/Vol] 4.38 10*6/uL Normal 4.2-5.4 [facility] Comment on above: Performed By: #### L 509.8000, L501.0250, L3890.6005, L100.0100 #### [facility] [address] [place], [address] RDW SD 44.6 fl High 35.1-43.9 [facility] Comment on above: Performed By: #### L 509.8000, L501.0250, L3890.6005, L100.0100 #### [facility] [address] [place], [address] WBC (Bld) [#/Vol] 11.5 10*3/uL High 4.4-11.0 [facility] Comment on above: Performed By: #### L 509.8000, L501.0250, L3890.6005, L100.0100 #### [facility] [address] [place], [address] Determination of erythrocyte mean corpuscular volume (MCV)Ordered By: Dr. Lee on 10-10-2022 MCV (RBC) [Entitic vol] 93.4 fL 81-99 [facility] Gestational diabetes screen 1-hour screen with 50g oral glucose loadOrdered By: Dr. Lee on 10-10-2022 Glucose 1 Hr post 50 g glucose PO [Mass/Vol] 98 mg/dL 70-140 [facility] Glucose Challenge Gest 1H 50 tahmina 10-10-2022 GLU GEST 50g 1H 98 mg/dL Normal 70-140 [facility] Comment on above: Performed By: #### L 509.8000, L501.0250, L3890.6005, L100.0100 #### [facility] [address] [place], [place], [id number] HIV - WCHon 10-10-2022 HIV Non-Reactive Normal Nonreactive [facility] Comment on above: Performed By: #### L 509.8000, L501.0250, L3890.6005, L100.0100 ####[facility] [id number] [place], [place], [id number] HIV 1 and HIV-2 antibody ass ay with HIV-1 p24 antigen detectionOrdered By: Dr. Lee on 10-10-2022 HIV 1+2 Ab+HIV1 p24 Ag IA Ql Non-Reactive Nonreactive [facility] Hematocrit Auto (Bld) [Volum e fraction]Ordered By: Dr. Lee on 10-10-2022 Hematocrit (Bld) [Volume fraction] 40.9 % 37-47 [facility] L509.8000on 10-10-2022 Syphilis Abs Non-Reactive Normal [facility] Comment on above: Performed By: #### L 509.8000, L501.0250, L3890.6005, L100.0100 #### [facility] [address] [place], [place], [id number] Laboratory - Chemistry and C hemistry - challengeon 10-10-2022 Glucose Ql (U) Negative [facility] - Hematology and Cell countsOrdered By: Dr. Lee on 10-10-2022 Erythrocyte distribution width (RBC) [Entitic vol] 44.6 fL 35.1-43.9 [facility] Erythrocyte distribution width (RBC) [Ratio] 13.0 % 11.6-14.6 [facility] Immature granulocytes/100 WBC (Bld) 1.000 % 0.0-0.9 [facility] Comment on above: IG% - Immature Granu locytes (promyelocytes, myelocytes and metamyelocytes) > 1% indicates that a LEFT SHIFT is Present. MCH (RBC) [Entitic mass] 30.4 pg 27.0-32.0 [facility] Nucleated RBC/100 WBC (Bld) [Ratio] 0 % 0-5 [facility] - Urinalysison Protein Ql (U) Negative [facility] MCHC Auto (RBC) [Mass/Vol]Or dered By: Dr. Lee on 10-10-2022 MCHC (RBC) [Mass/Vol] 32.5 g/dL 32-36 [facility] Washing Machine Repairer Office Visit Reporton 10-10-2022 Washing Machine Repairer Office Visit Report [facility] [place] [address] [place] [address] [address] [place] [address] OFFICE VISIT Date of Service: 10/10/22 MR#: [id number] Acct: [id number] Name: CLARA SERRANO Rep #: [id number] : 1990 Provider: Dr. Peace luong MD Age/Sex: 32/F Location: [facility] Status: Signed Intake Vital Signs 05/22/22 15:50 10/10/22 15:29 10/10/22 15:32 Height 5 ft 6.5 in 5 ft 6.5 in 5 ft 6.5 in Weight: 156 lb 6 oz BMI 24.8 BP 101/68 Intake Visit Reasons: est ob 28w 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 Is patient in pain?: No Allergies No Known Allergies Allergy (Verified 10/10/22 15:30) Medications vits,calcium no.78-iron fumarate-folic acid 29 mg-1 mg tablet 1 tab PO DAILY 01/05/19 [History Confirmed 10/10/22] Last Menstrual Period: 03/27/22 Zika: Zika virus screening: Negative : No PFSH PFSH Medical History H/O miscarriage, currently hemorrhage Vaginal delivery Social History Smoking Status: Never smoker alcohol intake: never substance use type: does not use caffeine: No what type of physical activity do you participate in: aerobics and weight training frequency: 5-6 times per week seatbelt use: sometimes do you feel safe at home: Yes 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 Date Name GA/Weeks Outcome Route Bth Weight Gen Labor Lgth Anesthesia Del Locatn Provider FOB 01/06/19 Susana 40 live - full term 8lbs Female epidural [facility] [place] 01/28/21 Mathur 40 live - full term [facility] Katherine nthony Delivery Date: 01/06/19 Last Updated by: Tianna Burns RoM greater than 24 hours; 2 degree laceration HPI est ob 28w Details: CLARA SERRANO is a 32 year old who presents for routine OB visit. OB Visit JOSEPHINE Calculator Estimated Delivery Date Method Current WG Current Estimate 01/01/23 LMP (Certain) 28w 1d Other Estimates 01/01/23 Ultrasound #1 28w 1d Expected Delivery Route/Plan Labor Preferences- CB/BF classes: [] labor support person: [] labor intervention preferences: [] pain management options preferred: [] cut cord/dad catch: [] : [] PP control planned: [] discussed possible routes of delivery and associated risks: [] special requests: [] Specific Issue/Plans Covid status: unvaccinated Flu vaccine: declines Tdap vaccine: [] Rhogam: [] LARC form signed: [] Problem list reviewed and updated with the most current plan of care details and appropriate orders placed. Relevant counseling for the gestational age provided. Continue routine care and follow up unless otherwise noted in visit notes/problem list details Initial Weight: Not Recorded Date -???-???-???-???-???-?? ?-???-???-???-???-???-? ??- EGA Weight BP Urine Prot -???-???-???-???-???-?? ?-???-???-???-???-???-? ??- Glucose FHR FuHt Pres Dilation -???-???-???-???-???-?? ?-???-???-???-???-???-? ??- Effaced St Visit Note 05/22/22 -???-???-???-???-???-?? ?-???-???-???-???-???-? ??- 8w 0d 139 lb 124/76 -???-???-???-???-???-?? ?-???-???-???-???-???-? ??- 149 -???-???-???-???-???-?? ?-???-???-???-???-???-? ??- JV- single l sary IUP measuring 8 weeks 0 days consistent with LMP. 06/20/22 -???-???-???-???-???-?? ?-???-???-???-???-???-? ??- 12w 1d 140 lb 98/72 -???-???-???-???-???-?? ?-???-???-???-???-???-? ??- 160 -???-???-???-???-???-?? ?-???-???-???-???-???-? ??- JV- no cramp ing or pain. Normal NIPT (it's a girl!) 07/28/22 -???-???-???-???-???-?? ?-???-???-???-???-???-? ??- 17w 4d 147 lb 2 oz 96/64 Negative -???-???-???-???-???-?? ?-???-???-???-???-???-? ??- Negative 148 -???-???-???-???-???-?? ?-???-???-???-???-???-? ??- -No Vb, cr amping. Denies concerns. Reviewed normal labs. 08/15/22 -???-???-???-???-???-?? ?-???-???-???-???-???-? ??- 20w 1d 152 lb 130/72 Negative -???-???-???-???-???-?? ?-???-???-???-???-???-? ??- Negative 144 -???-???-???-???-???-?? ?-???-???-???-???-???-? ??- JV- normal a natomy scan. pt having migraines without an aura. recommend tylenol, caffeine and suboccipital muscle release techniques 09/12/22 -???-???-???-???-???-?? ?-???-???-???-???-???-? ??- 24w 1d 154 lb 4 oz 99/56 Negative -???-???-???-???-???-?? ?-???-???-???-???-???-? ??- Negative 142 -???-???-???-???-???-?? ?-???-???-???-???-???-? ??- JV- no lof, vaginal bleeding, or dec fm. gct ordered. h (more content not included)... Normal [facility] Platelets bldOrdered By: Dr. Lee on 10-10-2022 Platelets (Bld) [#/Vol] 253 10*3/uL 150-450 [facility] Serum Treponema species anti body detectionOrdered By: Dr. Lee on 10-10-2022 Treponema sp Ab Ql (S) Non-Reactive [facility] - Chemistry and C hemistry - challengeon 09-12-2022 Glucose Ql (U) Negative [facility] - Urinalysison Protein Ql (U) Negative [facility] Washing Machine Repairer Office Visit Reporton 09-12-2022 Washing Machine Repairer Office Visit Report [facility] [place] [address] [place] [address] OFFICE VISIT Date of Service: 09/12/22 MR#: [id number] Acct: [id number] Name: CLARA SERRANO Rep #: [id number] : 1990 Provider: Dr. Nasra Verdin DO Age/Sex: 32/F Location: [facility] Status: Signed Intake Vital Signs 05/22/22 15:50 09/12/22 14:44 09/12/22 14:44 Height 5 ft 6.5 in 5 ft 6.5 in 5 ft 6.5 in Weight: 154 lb 4 oz BMI 24.5 BP 99/56 L Intake Visit Reasons: est ob 24w 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 Is patient in pain?: No Allergies No Known Allergies Allergy (Verified 09/12/22 14:43) Medications vits,calcium no.78-iron fumarate-folic acid 29 mg-1 mg tablet 1 tab PO DAILY 01/05/19 [History Confirmed 09/12/22] Last Menstrual Period: 03/27/22 Zika: Zika virus screening: Negative : No PFSH PFSH Medical History H/O miscarriage, currently hemorrhage Vaginal delivery Social History Smoking Status: Never smoker alcohol intake: never substance use type: does not use caffeine: No what type of physical activity do you participate in: aerobics and weight training frequency: 5-6 times per week seatbelt use: sometimes do you feel safe at home: Yes 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 History 3 Elective abortions Hx Para 2 Spontaneous abortions 1 Hx # Term Pregnancies Ectopic pregnancies Hx # Pregnancies Multiple births # of living children 2 Past Pregnancies Del. Date Name GA/Weeks Outcome Route Bth Weight Infant Gen Labor Lgth Anesthesia Del Locatn Provider FOB 01/06/19 Susana 40 live - full term 8lbs Female epidural [facility] [place] 01/28/21 Mathur 40 live - full term [facility] Katherine nthotrino Delivery Date: 01/06/19 Last Updated by: Tianna Burns RoM greater than 24 hours; 2 degree laceration HPI est ob 24w Details: CLARA SERRANO is a 32 year old who presents for routine OB visit. OB Visit JOSEPHINE Calculator Estimated Delivery Date Method Current WG Current Estimate 01/01/23 LMP (Certain) 24w 1d Other Estimates 01/01/23 Ultrasound #1 24w 1d Expected Delivery Route/Plan Labor Preferences- CB/BF classes: [] labor support person: [] labor intervention preferences: [] pain management options preferred: [] cut cord/dad catch: [] : [] PP control planned: [] discussed possible routes of delivery and associated risks: [] special requests: [] Specific Issue/Plans Covid status: unvaccinated Flu vaccine: declines Tdap vaccine: [] Rhogam: [] LARC form signed: [] Problem list reviewed and updated with the most current plan of care details and appropriate orders placed. Relevant counseling for the gestational age provided. Continue routine care and follow up unless otherwise noted in visit notes/problem list details Initial Weight: Not Recorded Date -???-???-???-???-???-?? ?-???-???-???-???-???-? ??- EGA Weight BP Urine Prot -???-???-???-???-???-?? ?-???-???-???-???-???-? ??- Glucose FHR FuHt Pres Dilation -???-???-???-???-???-?? ?-???-???-???-???-???-? ??- Effaced St Visit Note 05/22/22 -???-???-???-???-???-?? ?-???-???-???-???-???-? ??- 8w 0d 139 lb 124/76 -???-???-???-???-???-?? ?-???-???-???-???-???-? ??- 149 -???-???-???-???-???-?? ?-???-???-???-???-???-? ??- JV- single l sary IUP measuring 8 weeks 0 days consistent with LMP. 06/20/22 -???-???-???-???-???-?? ?-???-???-???-???-???-? ??- 12w 1d 140 lb 98/72 -???-???-???-???-???-?? ?-???-???-???-???-???-? ??- 160 -???-???-???-???-???-?? ?-???-???-???-???-???-? ??- JV- no cramp ing or pain. Normal NIPT (it's a girl!) 07/28/22 -???-???-???-???-???-?? ?-???-???-???-???-???-? ??- 17w 4d 147 lb 2 oz 96/64 Negative -???-???-???-???-???-?? ?-???-???-???-???-???-? ??- Negative 148 -???-???-???-???-???-?? ?-???-???-???-???-???-? ??- MH-No Vb, cr amping. Denies concerns. Reviewed normal labs. 08/15/22 -???-???-???-???-???-?? ?-???-???-???-???-???-? ??- 20w 1d 152 lb 130/72 Negative -???-???-???-???-???-?? ?-???-???-???-???-???-? ??- Negative 144 -???-???-???-???-???-?? ?-???-???-???-???-???-? ??- JV- normal a natomy scan. pt having migraines without an aura. recommend tylenol, caffeine and suboccipital muscle release techniques 09/12/22 -???-???-???-???-???-?? ?-???-???-???-???-???-? ??- 24w 1d 154 lb 4 oz 99/56 -???-???-???-???-???-?? ?-???-???-???-???-???-? ??- 142 -???-???-???-???-???-?? ?-???-???-???-???-???-? ??- JV- no lof, vaginal bleeding, or dec fm. gct ordered. headaches resolv (more content not included)... Normal [facility] - Chemistry and C hemistry - challengeon 08-15-2022 Glucose Ql (U) Negative [facility] - Urinalysison Protein Ql (U) Negative [facility] Washing Machine Repairer Office Visit Reporton 08-15-2022 Washing Machine Repairer Office Visit Report [facility] [place] [address] [place] [address] OFFICE VISIT Date of Service: 08/15/22 MR#: [id number] Acct: [id number] Name: CLARA SERRANO Rep #: [id number] : 1990 Provider: Dr. Nasra Verdin DO Age/Sex: 32/F Location: [facility] Status: Signed Intake Vital Signs 05/22/22 15:50 08/15/22 14:41 08/15/22 14:41 Height 5 ft 6.5 in 5 ft 6.5 in 5 ft 6.5 in Weight: 152 lb BMI 24.1 BP 130/72 H Intake Visit Reasons: est ob 20w 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 Is patient in pain?: No Allergies No Known Allergies Allergy (Verified 08/15/22 14:41) Medications vits,calcium no.78-iron fumarate-folic acid 29 mg-1 mg tablet 1 tab PO DAILY 01/05/19 [History Confirmed 08/15/22] Last Menstrual Period: 03/27/22 Zika: Zika virus screening: Negative : No PFSH PFSH Medical History H/O miscarriage, currently hemorrhage Vaginal delivery Social History Smoking Status: Never smoker alcohol intake: never substance use type: does not use caffeine: No what type of physical activity do you participate in: aerobics and weight training frequency: 5-6 times per week seatbelt use: sometimes do you feel safe at home: Yes 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 Date Name GA/Weeks Outcome Route Bth Weight Gen Labor Lgth Anesthesia Del Locatn Provider FOB 01/06/19 Susana 40 live - full term 8lbs Female epidural [facility] [place] 01/28/21 Mathur 40 live - full term [facility] Katherine nthotrino Delivery Date: 01/06/19 Last Updated by: Tianna Burns RoM greater than 24 hours; 2 degree laceration HPI est ob 20w Details: CLARA SERRANO is a 32 year old who presents for routine OB visit. OB Visit JOSEPHINE Calculator Estimated Delivery Date Method Current WG Current Estimate 01/01/23 LMP (Certain) 20w 1d Other Estimates 01/01/23 Ultrasound #1 20w 1d Expected Delivery Route/Plan Labor Preferences- CB/BF classes: [] labor support person: [] labor intervention preferences: [] pain management options preferred: [] cut cord/dad catch: [] : [] PP control planned: [] discussed possible routes of delivery and associated risks: [] special requests: [] Specific Issue/Plans Covid status: unvaccinated Flu vaccine: declines Tdap vaccine: [] Rhogam: [] LARC form signed: [] Problem list reviewed and updated with the most current plan of care details and appropriate orders placed. Relevant counseling for the gestational age provided. Continue routine care and follow up unless otherwise noted in visit notes/problem list details Initial Weight: Not Recorded Date -???-???-???-???-???-?? ?-???-???-???-???-???-? ??- EGA Weight BP Urine Prot -???-???-???-???-???-?? ?-???-???-???-???-???-? ??- Glucose FHR FuHt Pres Dilation -???-???-???-???-???-?? ?-???-???-???-???-???-? ??- Effaced St Visit Note 05/22/22 -???-???-???-???-???-?? ?-???-???-???-???-???-? ??- 8w 0d 139 lb 124/76 -???-???-???-???-???-?? ?-???-???-???-???-???-? ??- 149 -???-???-???-???-???-?? ?-???-???-???-???-???-? ??- JV- single l sary IUP measuring 8 weeks 0 days consistent with LMP. 06/20/22 -???-???-???-???-???-?? ?-???-???-???-???-???-? ??- 12w 1d 140 lb 98/72 -???-???-???-???-???-?? ?-???-???-???-???-???-? ??- 160 -???-???-???-???-???-?? ?-???-???-???-???-???-? ??- JV- no cramp ing or pain. Normal NIPT (it's a girl!) 07/28/22 -???-???-???-???-???-?? ?-???-???-???-???-???-? ??- 17w 4d 147 lb 2 oz 96/64 Negative -???-???-???-???-???-?? ?-???-???-???-???-???-? ??- Negative 148 -???-???-???-???-???-?? ?-???-???-???-???-???-? ??- MH-No Vb, cr amping. Denies concerns. Reviewed normal labs. 08/15/22 -???-???-???-???-???-?? ?-???-???-???-???-???-? ??- 20w 1d 152 lb 130/72 Negative -???-???-???-???-???-?? ?-???-???-???-???-???-? ??- Negative 144 -???-???-???-???-???-?? ?-???-???-???-???-???-? ??- JV- normal a natomy scan. pt having migraines without an aura. recommend tylenol, caffeine and suboccipital muscle release techniques ACOG First Trimester First Trimester: Desire for , Alcohol, Tobacco Cessation, Illicit/Recreational Drug/Substance Use, Intimate Partner Violence, Barriers to care, Unstable Housing, Communication Barriers, Environmental/Work Hazards, Anticipated Course o (more content not included)... Normal [facility] OB Anatomy Scanon 08-08-2022 OB Anatomy Scan [facility] Imaging Services [address] [place] [address] OB Anatomy Scan MR#: [id number] Acct: [id number] Name: YRN SERRANOA Sacha HUGHES Rep #: [id number] : 1990 F 32 From: Jez stephenson MD PCP: Care Physician,No Primary Status: REG CLI Study: OB Anatomy Scan Date of Exam: 08/08/22 Exam# [id number] Ordering Dr: Nasra Che DO STUDY: SECOND AND THIRD TRIMESTER OBSTETRICAL ULTRASOUND REASON FOR EXAM: Female, 32 years old anatomy scan LMP: 03/27/2022 TECHNIQUE: Transabdominal and Transvaginal TECHNICAL QUALITY: Adequate. PRIOR ULTRASOUND: None. FINDINGS: There is a single intrauterine fetus. The fetus is in a variable presentation. There is demonstrated cardiac activity with a heart rate of 138 bpm. There is a normal amniotic fluid volume. The largest amniotic fluid pocket measures 3.7 cm x 2.6 cm. The amniotic fluid index (ITALIA) is within normal limits. The placenta is posterior in location and is not low lying. There are Grade 0 placental changes. The cervix measures 3.8 cm in length. The bilateral adnexal regions are normal. BIOMETRY: BPD: 4.02 cm: 18 weeks, 1 days HC: 15.62 cm: 18 weeks, 4 days AC: 14.36 cm: 19 weeks, 5 days FL: 2.84 cm: 18 weeks, 5 days CI: 75% FL/BPD: 71% FL/HC: FL/AC: 20% HC/AC: 1.09 age by current US: 18 weeks, 5 days. JOSEPHINE by current US: 01/04/2023. Estimated weight: 276 grams, +/- 41 grams, 44 %. Age by LMP: 19 weeks, 1 days. JOSEPHINE by LMP: 01/01/2023. ANATOMY: Gender: Female Cranium: Normal lateral ventricles. Normal choroid plexus. Normal cerebellum. Normal cisterna magna. Normal face, nose and lips. Chest: Normal 4-chamber heart. Abdomen/Pelvis: Normal diaphragm. Normal stomach. Normal abdominal wall. Normal cord insertion. Normal 3 vessel cord. Normal kidneys. Normal bladder. Spine: Normal cervical spine. Normal thoracic spine. Normal lumbar spine. Normal sacrum. Extremities: Normal bilateral upper extremities. Normal bilateral lower extremities. US/OB Anatomy Scan IMPRESSION: Single live uterine gestation with a mean gestational age of 18 weeks and 5 days. Electronically Signed: Jez Rebollar MD at 15:17 EST , CC: Dr. Nasra Che, DO; No Primary Care Physician Digital Operations Analyst: Signed Normal [facility] - Chemistry and C hemistry - challengeon 07-28-2022 Glucose Ql (U) Negative [facility] - Urinalysison Protein Ql (U) Negative [facility] Washing Machine Repairer Office Visit Reporton 07-28-2022 Washing Machine Repairer Office Visit Report [facility] [place] [address] [place], [place] [address] OFFICE VISIT Date of Service: 07/28/22 MR#: [id number] Acct: [id number] Name: CLARA SERRANO Rep #: [id number] : 1990 Provider: QASIM webb Age/Sex: 32/F Location: [facility] Status: Signed Intake Vital Signs 07/28/22 13:25 07/28/22 13:26 Height 5 ft 6.5 in 5 ft 6.5 in Weight: 147 lb 2 oz BMI 23.3 BP 96/64 Intake Visit Reasons: est ob 16w R/S from 07/18 Chief Complaint: 16 Week OB 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 Is patient in pain?: No Allergies No Known Allergies Allergy (Verified 07/28/22 13:26) Medications vits,calcium no.78-iron fumarate-folic acid 29 mg-1 mg tablet 1 tab PO DAILY 01/05/19 [History Confirmed 07/28/22] Last Menstrual Period: 03/27/22 Zika: Zika virus screening: Negative : No PFSH PFSH Medical History H/O miscarriage, currently hemorrhage Vaginal delivery Social History Smoking Status: Never smoker alcohol intake: never substance use type: does not use caffeine: No what type of physical activity do you participate in: aerobics and weight training frequency: 5-6 times per week seatbelt use: sometimes do you feel safe at home: Yes 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 History 3 Elective abortions Hx Para 2 Spontaneous abortions 1 Hx # Term Pregnancies Ectopic pregnancies Hx # Pregnancies Multiple births # of living children 2 Past Pregnancies Del. Date Name GA/Weeks Outcome Route Bth Weight Infant Gen Labor Lgth Anesthesia Del Locatn Provider FOB 01/06/19 Susana 40 live - full term 8lbs Female epidural [facility] [place] 01/28/21 Mathur 40 live - full term [facility] Katherine nthony Delivery Date: 01/06/19 Last Updated by: Tianna Burns RoM greater than 24 hours; 2 degree laceration HPI est ob 16w R/S from 07/18 Details: CLARA SERRANO is a 32 year old who presents for routine OB visit. OB Visit JOSEPHINE Calculator Estimated Delivery Date Method Current WG Current Estimate 01/01/23 LMP (Certain) 17w 4d Other Estimates 01/01/23 Ultrasound #1 17w 4d Expected Delivery Route/Plan Labor Preferences- CB/BF classes: [] labor support person: [] labor intervention preferences: [] pain management options preferred: [] cut cord/dad catch: [] : [] PP control planned: [] discussed possible routes of delivery and associated risks: [] special requests: [] Specific Issue/Plans Covid status: unvaccinated Flu vaccine: declines Tdap vaccine: [] Rhogam: [] LARC form signed: [] Problem list reviewed and updated with the most current plan of care details and appropriate orders placed. Relevant counseling for the gestational age provided. Continue routine care and follow up unless otherwise noted in visit notes/problem list details Initial Weight: Not Recorded Date -???-???-???-???-???-?? ?-???-???-???-???-???-? ??- EGA Weight BP Urine Prot -???-???-???-???-???-?? ?-???-???-???-???-???-? ??- Glucose FHR FuHt Pres Dilation -???-???-???-???-???-?? ?-???-???-???-???-???-? ??- Effaced St Visit Note 05/22/22 -???-???-???-???-???-?? ?-???-???-???-???-???-? ??- 8w 0d 139 lb 124/76 -???-???-???-???-???-?? ?-???-???-???-???-???-? ??- 149 -???-???-???-???-???-?? ?-???-???-???-???-???-? ??- JV- single l sary IUP measuring 8 weeks 0 days consistent with LMP. 06/20/22 -???-???-???-???-???-?? ?-???-???-???-???-???-? ??- 12w 1d 140 lb 98/72 -???-???-???-???-???-?? ?-???-???-???-???-???-? ??- 160 -???-???-???-???-???-?? ?-???-???-???-???-???-? ??- JV- no cramp ing or pain. Normal NIPT (it's a girl!) 07/28/22 -???-???-???-???-???-?? ?-???-???-???-???-???-? ??- 17w 4d 147 lb 2 oz 96/64 Negative -???-???-???-???-???-?? ?-???-???-???-???-???-? ??- Negative 148 -???-???-???-???-???-?? ?-???-???-???-???-???-? ??- MH-No Vb, cr amping. Denies concerns. Reviewed normal labs. ACOG First Trimester First Trimester: Desire for , Alcohol, Tobacco Cessation, Illicit/Recreational Drug/Substance Use, Intimate Partner Violence, Barriers to care, Unstable Housing, Communication Barriers, Environmental/Work Hazards, Anticipated Course of Care, Toxoplasmosis Precations, Use of Any medications, Sexual activity, Exercise, Dental Care, Sauna/Hot tub use, Seat Belt use, Childbirth classes/Hospital facilities, , Travel, Indications for Ultrasound and Screening for Aneuploidy Second Trimester Second Trimester: Signs and Symptoms of Pre (more content not included)... Normal [facility] Washing Machine Repairer Office Visit Reporton 06-20-2022 Washing Machine Repairer Office Visit Report [facility] [address] [place] [address] OFFICE VISIT Date of Service: 06/20/22 MR#: [id number] Acct: [id number] Name: CLARA SERRANO Rep #: [id number] : 1990 Provider: Dr. Nasra Verdin DO Age/Sex: 32/F Location: [facility] Status: Signed Intake Vital Signs 06/20/22 15:45 Height 5 ft 6.5 in Weight: 140 lb BMI 22.2 BP 98/72 Intake Visit Reasons: 12w Chief Complaint: 12 week OB 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 Is patient in pain?: No Allergies No Known Allergies Allergy (Verified 06/20/22 15:48) Medications vits,calcium no.78-iron fumarate-folic acid 29 mg-1 mg tablet 1 tab PO DAILY 01/05/19 [History Confirmed 06/20/22] Last Menstrual Period: 03/27/22 Zika: Zika virus screening: Negative : No PFSH PFSH Medical History H/O miscarriage, currently hemorrhage Social History Smoking Status: Never smoker alcohol intake: never substance use type: does not use caffeine: No what type of physical activity do you participate in: aerobics and weight training frequency: 5-6 times per week seatbelt use: sometimes do you feel safe at home: Yes 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 Date Name GA/Weeks Outcome Route Bth Weight Gen Labor Lgth Anesthesia Del Locatn Provider FOB 01/06/19 Susana 40 live - full term 8lbs Female epidural [facility] [place] 01/28/21 Mathur 40 live - full term [facility] Katherine nthotrino Delivery Date: 01/06/19 Last Updated by: Tianna Burns RoM greater than 24 hours; 2 degree laceration HPI 12w Details: CLARA SERRANO is a 32 year old who presents for routine OB visit. OB Visit JOSEPHINE Calculator Estimated Delivery Date Method Current WG Current Estimate 01/01/23 LMP (Certain) 12w 1d Other Estimates 01/01/23 Ultrasound #1 12w 1d Expected Delivery Route/Plan Labor Preferences- CB/BF classes: [] labor support person: [] labor intervention preferences: [] pain management options preferred: [] cut cord/dad catch: [] : [] PP control planned: [] discussed possible routes of delivery and associated risks: [] special requests: [] Specific Issue/Plans Covid status: unvaccinated Flu vaccine: [] Tdap vaccine: [] Rhogam: [] LARC form signed: [] Problem list reviewed and updated with the most current plan of care details and appropriate orders placed. Relevant counseling for the gestational age provided. Continue routine care and follow up unless otherwise noted in visit notes/problem list details Initial Weight: Not Recorded Date -???-???-???-???-???-?? ?-???-???-???-???-???-? ??- EGA Weight BP Urine Prot -???-???-???-???-???-?? ?-???-???-???-???-???-? ??- Glucose FHR FuHt Pres Dilation -???-???-???-???-???-?? ?-???-???-???-???-???-? ??- Effaced St Visit Note 05/22/22 -???-???-???-???-???-?? ?-???-???-???-???-???-? ??- 8w 0d 139 lb 124/76 -???-???-???-???-???-?? ?-???-???-???-???-???-? ??- 149 -???-???-???-???-???-?? ?-???-???-???-???-???-? ??- JV- single l sary IUP measuring 8 weeks 0 days consistent with LMP. 06/20/22 -???-???-???-???-???-?? ?-???-???-???-???-???-? ??- 12w 1d 140 lb 98/72 -???-???-???-???-???-?? ?-???-???-???-???-???-? ??- 160 -???-???-???-???-???-?? ?-???-???-???-???-???-? ??- JV- no cramp ing or pain. Normal NIPT (it's a girl!) ACOG First Trimester First Trimester: Desire for , Alcohol, Tobacco Cessation, Illicit/Recreational Drug/Substance Use, Intimate Partner Violence, Barriers to care, Unstable Housing, Communication Barriers, Environmental/Work Hazards, Anticipated Course of Care, Toxoplasmosis Precations, Use of Any medications, Sexual activity, Exercise, Dental Care, Sauna/Hot tub use, Seat Belt use, Childbirth classes/Hospital facilities, , Travel, Indications for Ultrasound and Screening for Aneuploidy Second Trimester Second Trimester: Signs and Symptoms of Labor, Selecting a care provider, Reproductive Life Planning Contreception, Care Planning, Depression/Anxiety and Intimate Partner Violence; Discussed Tobacco Cessation Third Trimester Third Trimester: Pain Management Plans, Labor support person(s), Immediate Larc and Circumcision preference Diagnostics Diag (more content not included)... Normal [facility] Absolute lymphocyte countOrd ered By: Dr. Lee on 06-09-2022 Lymphocytes Auto (Unsp spec) [#/Vol] 2.78 10*3/uL 0.83-4.51 [facility] Basophil percentageOrdered B y: Dr. Lee on 06-09-2022 Basophils/100 WBC (Bld) 0.4 % 0-1 [facility] Eosinophils/100 WBC (Bld) 2.2 % 0-5 [facility] Neutrophils (Bld) [#/Vol] 7.2 10*3/uL 2.0-7.7 [facility] Neutrophils/100 WBC (Bld) 65.5 % 47-70 [facility] WBC (Bld) [#/Vol] 10.9 10*3/uL 4.4-11.0 [facility] Blood erythrocytes count (nu mber/volume)Ordered By: Dr. Lee on 06-09-2022 RBC (Bld) [#/Vol] 4.63 10*6/uL 4.2-5.4 [facility] Blood hemoglobin measurement (mass/volume)Ordered By: Dr. Lee on 06-09-2022 Hemoglobin (Bld) [Mass/Vol] 13.6 g/dL 12.0-15.0 [facility] Blood lymphocytes/100 leukoc ytesOrdered By: Dr. Lee on 06-09-2022 Lymphocytes/100 WBC (Bld) 25.4 % 19-41 [facility] Blood monocytes/100 leukocyt esOrdered By: Dr. Lee on 06-09-2022 Monocytes/100 WBC (Bld) 6.0 % 0-10 [facility] Blood platelet mean volumeOr dered By: Dr. Lee on 06-09-2022 Platelet mean volume (Bld) [Entitic vol] 10.3 fL 6.2-12.0 [facility] CBC W/Diff, Automatedon 05-21 Absolute Lymph 2.78 X10 3/uL Normal 0.83-4.51 [facility] Comment on above: Performed By: #### L 3890.6100, L900.0098, BTS, L3890.6300, L509.8000, L100.0100, L509.4005, L3890.6005 ####[facility] [address] [place], [address] Absolute Neut 7.2 X10 3/uL Normal 2.0-7.7 [facility] Comment on above: Performed By: #### L 3890.6100, L900.0098, BTS, L3890.6300, L509.8000, L100.0100, L509.4005, L3890.6005 ####[facility] [address] [place], [address] Basophils/100 WBC (Bld) 0.4 % Normal 0-1 [facility] Comment on above: Performed By: #### L 3890.6100, L900.0098, BTS, L3890.6300, L509.8000, L100.0100, L509.4005, L3890.6005 ####[facility] [address] [place], [address] Eosinophils/100 WBC (Bld) 2.2 % Normal 0-5 [facility] Comment on above: Performed By: #### L 3890.6100, L900.0098, BTS, L3890.6300, L509.8000, L100.0100, L509.4005, L3890.6005 ####[facility] [address] [place], [address] Erythrocyte distribution width (RBC) [Ratio] 12.2 % Normal 11.6-14.6 [facility] Comment on above: Performed By: #### L 3890.6100, L900.0098, BTS, L3890.6300, L509.8000, L100.0100, L509.4005, L3890.6005 ####[facility] [address] [place], [address] Hematocrit (Bld) [Volume fraction] 41.2 % Normal 37-47 [facility] Comment on above: Performed By: #### L 3890.6100, L900.0098, BTS, L3890.6300, L509.8000, L100.0100, L509.4005, L3890.6005 ####[facility] [address] [place], [address] Hemoglobin (Bld) [Mass/Vol] 13.6 g/dL Normal 12.0-15.0 [facility] Comment on above: Performed By: #### L 3890.6100, L900.0098, BTS, L3890.6300, L509.8000, L100.0100, L509.4005, L3890.6005 ####[facility] [address] [place], [address] IG% 0.500 Normal 0.0-0.9 [facility] Comment on above: Result Comment: IG% - Immature Granulocytes (promyelocytes, myelocytes and metamyelocytes) > 1% indicates that a LEFT SHIFT is Present. Performed By: #### L 3890.6100, L900.0098, BTS, L3890.6300, L509.8000, L100.0100, L509.4005, L3890.6005 ####[facility] [address] [place], [address] Lymphocytes/100 WBC (Bld) 25.4 % Normal 19-41 [facility] Comment on above: Performed By: #### L 3890.6100, L900.0098, BTS, L3890.6300, L509.8000, L100.0100, L509.4005, L3890.6005 ####[facility] [address] [place], [address] MCH (RBC) [Entitic mass] 29.4 pg Normal 27.0-32.0 [facility] Comment on above: Performed By: #### L 3890.6100, L900.0098, BTS, L3890.6300, L509.8000, L100.0100, L509.4005, L3890.6005 ####[facility] [address] [place], [address] MCHC (RBC) [Mass/Vol] 33.0 g/dL Normal 32-36 [facility] Comment on above: Performed By: #### L 3890.6100, L900.0098, BTS, L3890.6300, L509.8000, L100.0100, L509.4005, L3890.6005 ####[facility] [address] [place], [address] MCV (RBC) [Entitic vol] 89.0 fL Normal 81-99 [facility] Comment on above: Performed By: #### L 3890.6100, L900.0098, BTS, L3890.6300, L509.8000, L100.0100, L509.4005, L3890.6005 ####[facility] [address] [place], [address] Monocytes/100 WBC (Bld) 6.0 % Normal 0-10 [facility] Comment on above: Performed By: #### L 3890.6100, L900.0098, BTS, L3890.6300, L509.8000, L100.0100, L509.4005, L3890.6005 ####[facility] [address] [place], [address] Neutrophils/100 WBC (Bld) 65.5 % Normal 47-70 [facility] Comment on above: Performed By: #### L 3890.6100, L900.0098, BTS, L3890.6300, L509.8000, L100.0100, L509.4005, L3890.6005 ####[facility] [address] [place], [address] Nucleated RBC (Bld) [#/Vol] 0 10*3/uL Normal 0-5 [facility] Comment on above: Performed By: #### L 3890.6100, L900.0098, BTS, L3890.6300, L509.8000, L100.0100, L509.4005, L3890.6005 ####[facility] [address] [place], [address] Platelet mean volume (Bld) [Entitic vol] 10.3 fL Normal 6.2-12.0 [facility] Comment on above: Performed By: #### L 3890.6100, L900.0098, BTS, L3890.6300, L509.8000, L100.0100, L509.4005, L3890.6005 ####[facility] [address] [place], [address] Platelets (Bld) [#/Vol] 362 10*3/uL Normal 150-450 [facility] Comment on above: Performed By: #### L 3890.6100, L900.0098, BTS, L3890.6300, L509.8000, L100.0100, L509.4005, L3890.6005 ####[facility] [address] [place], [place], [id number] RBC (Bld) [#/Vol] 4.63 10*6/uL Normal 4.2-5.4 [facility] Comment on above: Performed By: #### L 3890.6100, L900.0098, BTS, L3890.6300, L509.8000, L100.0100, L509.4005, L3890.6005 ####[facility] [address] [place], [place], [phone] RDW SD 39.8 fl Normal 35.1-43.9 [facility] Comment on above: Performed By: #### L 3890.6100, L900.0098, BTS, L3890.6300, L509.8000, L100.0100, L509.4005, L3890.6005 ####[facility] [address] [place], [place], [phone] WBC (Bld) [#/Vol] 10.9 10*3/uL Normal 4.4-11.0 [facility] Comment on above: Performed By: #### L 3890.6100, L900.0098, BTS, L3890.6300, L509.8000, L100.0100, L509.4005, L3890.6005 ####[facility] [address] [place], [place], [id number] Determination of erythrocyte mean corpuscular volume (MCV)Ordered By: Dr. Lee on 06-09-2022 MCV (RBC) [Entitic vol] 89.0 fL 81-99 [facility] HIV - WCHon 06-09-2022 HIV Non-Reactive Normal Nonreactive [facility] Comment on above: Order Comment: Reaso n for Exam: Performed By: #### L 3890.6100, L900.0098, BTS, L3890.6300, L509.8000, L100.0100, L509.4005, L3890.6005 ####[facility] [address] [place], [place], [phone] HIV 1 and HIV-2 antibody ass ay with HIV-1 p24 antigen detectionOrdered By: Dr. Lee on 06-09-2022 HIV 1+2 Ab+HIV1 p24 Ag IA Ql Non-Reactive Nonreactive [facility] Hematocrit Auto (Bld) [Volum e fraction]Ordered By: Dr. Lee on 06-09-2022 Hematocrit (Bld) [Volume fraction] 41.2 % 37-47 [facility] Hepatitis B Surface Antigeno n 06-09-2022 HEP B Surf Ag Non-Reactive Normal Nonreactive [facility] Comment on above: Order Comment: Reaso n for Exam: Performed By: #### L 3890.6100, L900.0098, BTS, L3890.6300, L509.8000, L100.0100, L509.4005, L3890.6005 ####[facility] [address] [place], [address] Hepatitis C Antibodyon 06-09 Hepatitis C Ab Non-Reactive [facility] Comment on above: Order Comment: Reaso n for Exam: Result Comment: Non Reactive: < 0.8 Equivocal: >/= 0.8 to < 1.0 Reactive: >/= 1.0 The CDC recommends that a reactive/equivocal HCV antibody result be followed up by the HCV Nucleic Acid Amplification test (684660) Performed By: #### L 3890.6100, L900.0098, BTS, L3890.6300, L509.8000, L100.0100, L509.4005, L3890.6005 ####[facility] [address] [place], [address] L509.8000on 06-09-2022 Syphilis Abs Non-Reactive Normal [facility] Comment on above: Order Comment: Reaso n for Exam: Performed By: #### L 3890.6100, L900.0098, BTS, L3890.6300, L509.8000, L100.0100, L509.4005, L3890.6005 ####[facility] [address] [place], [address] Laboratory - Hematology and Cell countsOrdered By: Dr. Lee on 06-09-2022 Erythrocyte distribution width (RBC) [Entitic vol] 39.8 fL 35.1-43.9 [facility] Erythrocyte distribution width (RBC) [Ratio] 12.2 % 11.6-14.6 [facility] Immature granulocytes/100 WBC (Bld) 0.500 % 0.0-0.9 [facility] Comment on above: IG% - Immature Granu locytes (promyelocytes, myelocytes and metamyelocytes) > 1% indicates that a LEFT SHIFT is Present. MCH (RBC) [Entitic mass] 29.4 pg 27.0-32.0 [facility] Nucleated RBC/100 WBC (Bld) [Ratio] 0 % 0-5 [facility] MCHC Auto (RBC) [Mass/Vol]Or dered By: Dr. Lee on 06-09-2022 MCHC (RBC) [Mass/Vol] 33.0 g/dL 32-36 [facility] NATERAon 06-09-2022 NATURA MAILED SPECIMEN Normal [facility] Comment on above: Performed By: #### L 3890.6100, L900.0098, BTS, L3890.6300, L509.8000, L100.0100, L509.4005, L3890.6005 ####[facility] [address] [place], [place], [phone] No Panel InformationOrdered By: Dr. Lee on 06-09-2022 Miscellaneous Test Comment MAILED SPECIMEN [facility] Hepatitis B Surface Antigen Non-Reactive Nonreactive [facility] Hepatitis C Antibody Non-Reactive Nonreactive [facility] Comment on above: Non Reactive: < 0.8 Equivocal: >/= 0.8 to < 1.0 Reactive: >/= 1.0The CDC recommends that a reactive/equivocal HCV antibody result be followed up by the HCV Nucleic Acid Amplificationtest (519456) Rubella IgG Antibody Reactive Nonreactive [facility] Comment on above: Antibody Results Int erpretation of Immune Status Non Reactive Presumed Non-Immune Equivocal Equivocal Reactive Presumed Immune Platelets bldOrdered By: Dr. Lee on 06-09-2022 Platelets (Bld) [#/Vol] 362 10*3/uL 150-450 [facility] Rubella IgGon 06-09-2022 Rubella IgG Reactive Normal Nonreactive [facility] Comment on above: Order Comment: Reaso n for Exam: Result Comment: Anti body Results Interpretation of Immune Status Non Reactive Presumed Non-Immune Equivocal Equivocal Reactive Presumed Immune Performed By: #### L 3890.6100, L900.0098, BTS, L3890.6300, L509.8000, L100.0100, L509.4005, L3890.6005 ####[facility] [address] [place], [place], [phone] Serum Treponema species anti body detectionOrdered By: Dr. Lee on 06-09-2022 Treponema sp Ab Ql (S) Non-Reactive [facility] Type AND Screenon 06-09-2022 Ab SCREEN GEL Negative Normal [facility] Comment on above: Order Comment: PN Performed By: #### L 3890.6100, L900.0098, BTS, L3890.6300, L509.8000, L100.0100, L509.4005, L3890.6005 ####[facility] [address] [place], [place], [id number] ABO and Rh group Nom (Bld) Blood group B Rh(D) positive Normal [facility] Comment on above: Order Comment: PN Performed By: #### L 3890.6100, L900.0098, BTS, L3890.6300, L509.8000, L100.0100, L509.4005, L3890.6005 ####[facility] [address] [place], [place], [phone] Chlamydia/GC FERNANDO aptimaon GC BY NUC ACID Negative Normal Negative [facility] Comment on above: Result Comment: Perf ormed at: =G - [facility] [address] [place] [id number] Water Quality Analyst: Dunia Dixon MD, Phone: [phone] Performed By: #### M 100.2200, L505.5000, L7000.1800 ####[facility] [address] [place], [place], [address] Chlamydia/GC FERNANDO aptimaon CHLAMY,NUC ACID Negative Normal Negative [facility] Comment on above: Performed By: #### M 100.2200, L505.5000, L7000.1800 ####[facility] [address] [place], [address] Culture, urineOrdered By: Dr Memo Lee on 05-25-2022 Bacteria identified Cx Nom (U) Presumptive Lactobacillus sp. [facility] Urine Cultureon 05-25-2022 URC Probable contaminant Presumptive Lactobacillus sp. Talent Count >100,000 Normal [facility] Comment on above: Performed By: #### M 100.2200, L505.5000, L7000.1800 ####[facility] [address] [place], [place], [address] Chlamydia trachomatis rRNA d etection by probe and target amplification methodOrdered By: Dr. Lee on 05-22-2022 C. trachomatis rRNA FERNANDO+probe Ql (Unsp spec) Negative Negative [facility] Laboratory - Drug toxicology Ordered By: Dr. Lee on 05-22-2022 Amphetamines Ql (U) Negative <1000 ng/mL [facility] Benzodiazepines Ql (U) Negative < 200 ng/mL [facility] Cannabinoids Screen Ql (U) Negative < 50 ng/mL [facility] Cocaine Ql (U) Negative < 300 ng/mL [facility] Opiates Ql (U) Negative < 300 ng/mL [facility] Laboratory - Microbiology an d Antimicrobial susceptibilityOrdered By: Dr. Lee on 05-22-2022 N. gonorrhoeae DNA FERNANDO+probe Ql (Unsp spec) Negative Negative [facility] Comment on above: Performed at: =G - [facility] [address] [place] [id number] Director: Dunia Dixon MD, Phone: [phone] No Panel InformationOrdered By: Dr. Lee on 05-22-2022 MDMA (Ecstasy) Screen Negative < 500 ng/mL [facility] Urine Barbiturates Screen Negative < 200 ng/mL [facility] Urine Drug Screen Comment [facility] Comment on above: CONFIRMATORY TESTING FOR ALL POSITIVE URINE DRUG SCREENRESULTS WILL ONLY BE SENT OUT UPON PHYSICIAN ORDER. VISTA Urine Drug Screen methods provide only preliminaryanalytical test results. A more specific alternate chemicalmethod must be used in order to obtain a confirmedanalytical result. Gas chromatography/mass spectrometery(GC/MS) is the preferred confirmatory method. Clinicalconsideration and professional judgement should be appliedto any drug of abuse test result, particularly whenpreliminary positive results are used. URINE TCA TESTING MUST BE ORDERED SEPARATELY. USE TESTMNEMONIC: [facility] Urine Methadone Screen Negative < 300 ng/mL [facility] Washing Machine Repairer Office Visit Reporton 05-22-2022 Washing Machine Repairer Office Visit Report [facility] [place] [address] [place] [address] OFFICE VISIT Date of Service: 05/22/22 MR#: [id number] Acct: [id number] Name: CLARA SERRANO Rep #: [id number] : 1990 Provider: Dr. Nasra Verdin, Age/Sex: 32/F Location: [facility] Status: Signed Intake Vital Signs 05/22/22 15:48 05/22/22 15:50 Height 5 ft 6.5 in 5 ft 6.5 in Weight: 139 lb BMI 22.1 BP 124/76 H Intake Visit Reasons: NEW OB LMP ? 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 Is patient in pain?: No Allergies No Known Allergies Allergy (Verified 05/22/22 16:02) Medications vits,calcium no.78-iron fumarate-folic acid 29 mg-1 mg tablet 1 tab PO DAILY 01/05/19 [History Confirmed 05/22/22] Last Menstrual Period: 03/27/22 Zika: Zika virus screening: Negative : No PFSH PFSH Medical History H/O miscarriage, currently hemorrhage Social History Smoking Status: Never smoker alcohol intake: never substance use type: does not use caffeine: No what type of physical activity do you participate in: aerobics and weight training frequency: 5-6 times per week seatbelt use: sometimes do you feel safe at home: Yes 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 Date Name GA/Weeks Outcome Route Bth Weight Infant Gen Labor Lgth Anesthesia Del Locatn Provider FOB 01/06/19 Susana 40 live - full term 8lbs Female epidural [facility] [place] 01/28/21 Mathur 40 live - full term [facility] Katherine ntандрей Delivery Date: 01/06/19 Last Updated by: Tianna Burns RoM greater than 24 hours; 2 degree laceration HPI NEW OB LMP ? Details: CLARA SERRANO is a 32 year old who presents for New OB visit. OB Visit JOSEPHINE Calculator Estimated Delivery Date Method Current WG Current Estimate 01/01/23 LMP (Certain) 8w 0d Other Estimates 01/01/23 Ultrasound #1 8w 0d Estimated Due Date: 01/28/21 Expected Delivery Route/Plan Labor Preferences- CB/BF classes: [] labor support person: [] labor intervention preferences: [] pain management options preferred: [] cut cord/dad catch: [] : [] PP control planned: [] discussed possible routes of delivery and associated risks: [] special requests: [] Specific Issue/Plans Covid status: unvaccinated Flu vaccine: [] Tdap vaccine: [] Rhogam: [] LARC form signed: [] Problem list reviewed and updated with the most current plan of care details and appropriate orders placed. Relevant counseling for the gestational age provided. Continue routine care and follow up unless otherwise noted in visit notes/problem list details Initial Weight: Not Recorded Date -???-???-???-???-???-?? ?-???-???-???-???-???-? ??- EGA Weight BP Urine Prot -???-???-???-???-???-?? ?-???-???-???-???-???-? ??- Glucose FHR FuHt Pres Dilation -???-???-???-???-???-?? ?-???-???-???-???-???-? ??- Effaced St Visit Note 05/22/22 -???-???-???-???-???-?? ?-???-???-???-???-???-? ??- 8w 0d 139 lb 124/76 -???-???-???-???-???-?? ?-???-???-???-???-???-? ??- 149 -???-???-???-???-???-?? ?-???-???-???-???-???-? ??- JV- single l sary IUP measuring 8 weeks 0 days consistent with LMP. Menstrual History Last Menstrual Period: 03/27/22 On hormonal BC at conception: No Antepartum Record Genetic Screening: Congenital Heart Defect: Other, Neural Tube Defect: Other, Hemoglobinopathy Or Carrier: Other, Cystic Fibrosis: Other, Chromosome Abnormality: Other, Sixto-Sachs: Other, Hemophilia: Other, Intellectual Disability/Autism: Other, Recurrent Loss/Stillbirth: Other, Other Structural Defect: Other, Other Genetic Disease: Other and Maternal Metabolic Disorder: Other Infection History: Live with someone with TB or Exposed to TB: No, Patient or Partner has history of Genital Herpes: No, Rash or Viral illness since last mentrual period: No, Prior GBS-Infected child: No, History of STD: No, HIV Infection: No, History of Hepatitis: No, Recent travel outside of [place]: No, Concern for hepatitis exposure: No and Varicella immune: Yes Medical History Medical History: Negative: Diabetes, Hypertension, Heart disease, Auto-immune disorder, Kidney disease/UTI, Neurologic/epilepsy, Psychiatric, Depression/ depression, Hepatitis/liver disease, Varicosities/phlebitis, Thyroid dysfunction, Trauma/domestic violence, History of blood (more content not included)... Normal [facility] Urine Drug Screen (VISTA)on 05-22-2022 AMPHETAMINES Negative Normal <1000 ng/mL [facility] Comment on above: Order Comment: UNK Performed By: #### M 100.2200, L505.5000, L7000.1800 ####[facility] [address] [place], [address] BARBITIURATES Negative Normal < 200 ng/mL [facility] Comment on above: Order Comment: UNK Performed By: #### M 100.2200, L505.5000, L7000.1800 ####[facility] [address] [place], [address] BENZODIAZIPINE Negative Normal < 200 ng/mL [facility] Comment on above: Order Comment: UNK Performed By: #### M 100.2200, L505.5000, L7000.1800 ####[facility] [address] [place], [address] COCAINE Negative Normal < 300 ng/mL [facility] Comment on above: Order Comment: UNK Performed By: #### M 100.2200, L505.5000, L7000.1800 ####[facility] [address] [place], [address] ECSTACY Negative Normal < 500 ng/mL [facility] Comment on above: Order Comment: UNK Performed By: #### M 100.2200, L505.5000, L7000.1800 ####[facility] [address] [place], [address] METHADONE Negative Normal < 300 ng/mL [facility] Comment on above: Order Comment: UNK Performed By: #### M 100.2200, L505.5000, L7000.1800 ####[facility] [address] [place], [address] OPIATES Negative Normal < 300 ng/mL [facility] Comment on above: Order Comment: UNK Performed By: #### M 100.2200, L505.5000, L7000.1800 ####[facility] [address] [place], [address] PCP Negative Normal < 25 ng/mL [facility] Comment on above: Order Comment: UNK Performed By: #### M 100.2200, L505.5000, L7000.1800 ####[facility] [address] [place], [address] THC Negative Normal < 50 ng/mL [facility] Comment on above: Order Comment: UNK Performed By: #### M 100.2200, L505.5000, L7000.1800 ####[facility] [address] [place], [address] VISTA UDS PH 6 Normal [facility] Comment on above: Order Comment: UNK Performed By: #### M 100.2200, L505.5000, L7000.1800 ####[facility] [address] [place], [address] Urine phencyclidine (PCP) de tectionOrdered By: Dr. Lee on 05-22-2022 Phencyclidine Ql (U) Negative < 25 ng/mL [facility] Culture, urine Bacteria identified Cx Nom (U) Presumptive Lactobacillus sp. [facility] Work Phone: Vital Signs Date Time Vital Sign Value Performing Clinician Faci lity 12-22-2022 11:06-0400 Heart rate 62 /min No Primary Care Physician [facility] 12-22-2022 11:06-0400 SaO2% (BldA) [Mass fraction] 96 % No Primary Care Physician [facility] 12-22-2022 07:34-0400 Body height 170.18 cm No Primary Care Physician [facility] 12-22-2022 07:34-0400 Body mass index (BMI) [Ratio] 26.2 kg/m2 No Primary Care Physician [facility] 12-22-2022 07:34-0400 Body weight 75.74 kg No Primary Care Physician [facility] 12-22-2022 07:25-0400 Body temperature 99.3 [degF] No Primary Care Physician [facility] 12-19-2022 15:41-0400 Body mass index (BMI) [Ratio] 26.4 kg/m2 No Primary Care Physician [facility] 12-19-2022 15:41-0400 Body weight 75.29 kg No Primary Care Physician [facility] 12-19-2022 15:41-0400 Diastolic blood pressure 72 mm[Hg] No Primary Care Physician [facility] 12-19-2022 15:41-0400 Systolic blood pressure 107 mm[Hg] No Primary Care Physician [facility] 12-12-2022 15:26-0400 Body mass index (BMI) [Ratio] 26.6 kg/m2 No Primary Care Physician [facility] 12-12-2022 15:26-0400 Body weight 76.2 kg No Primary Care Physician [facility] 12-12-2022 15:26-0400 Diastolic blood pressure 74 mm[Hg] No Primary Care Physician [facility] 12-12-2022 15:26-0400 Systolic blood pressure 121 mm[Hg] No Primary Care Physician [facility] 12-05-2022 15:32-0400 Body mass index (BMI) [Ratio] 25.7 kg/m2 No Primary Care Physician [facility] 12-05-2022 15:32-0400 Body weight 73.48 kg No Primary Care Physician [facility] 12-05-2022 15:32-0400 Diastolic blood pressure 61 mm[Hg] No Primary Care Physician [facility] 12-05-2022 15:32-0400 Systolic blood pressure 94 mm[Hg] No Primary Care Physician [facility] 11-19-2022 11:25-0400 Body mass index (BMI) [Ratio] 26.1 kg/m2 No Primary Care Physician [facility] 11-19-2022 11:25-0400 Body weight 74.44 kg No Primary Care Physician [facility] 11-19-2022 11:25-0400 Diastolic blood pressure 76 mm[Hg] No Primary Care Physician [facility] 11-19-2022 11:25-0400 Systolic blood pressure 116 mm[Hg] No Primary Care Physician [facility] 10-20-2022 15:41-0400 Body mass index (BMI) [Ratio] 24.8 kg/m2 No Primary Care Physician [facility] 10-20-2022 15:41-0400 Body weight 70.93 kg No Primary Care Physician [facility] 10-20-2022 15:41-0400 Diastolic blood pressure 67 mm[Hg] No Primary Care Physician [facility] 10-20-2022 15:41-0400 Systolic blood pressure 105 mm[Hg] No Primary Care Physician [facility] 10-10-2022 15:32-0400 Body height 168.91 cm No Primary Care Physician [facility] 10-10-2022 15:29-0400 Body mass index (BMI) [Ratio] 24.8 kg/m2 No Primary Care Physician [facility] 10-10-2022 15:29-0400 Body weight 70.93 kg No Primary Care Physician [facility] 10-10-2022 15:29-0400 Diastolic blood pressure 68 mm[Hg] No Primary Care Physician [facility] 10-10-2022 15:29-0400 Systolic blood pressure 101 mm[Hg] No Primary Care Physician [facility] 09-12-2022 14:44-0500 Body mass index (BMI) [Ratio] 24.5 kg/m2 No Primary Care Physician [facility] 09-12-2022 14:44-0500 Body weight 69.96 kg No Primary Care Physician [facility] 09-12-2022 14:44-0500 Diastolic blood pressure 56 mm[Hg] No Primary Care Physician [facility] 09-12-2022 14:44-0500 Systolic blood pressure 99 mm[Hg] No Primary Care Physician [facility] 08-15-2022 14:41-0500 Body height 168.91 cm No Primary Care Physician [facility] 08-15-2022 14:41-0500 Body mass index (BMI) [Ratio] 24.1 kg/m2 No Primary Care Physician [facility] 08-15-2022 14:41-0500 Body weight 68.94 kg No Primary Care Physician [facility] 08-15-2022 14:41-0500 Diastolic blood pressure 72 mm[Hg] No Primary Care Physician [facility] 08-15-2022 14:41-0500 Systolic blood pressure 130 mm[Hg] No Primary Care Physician [facility] 07-28-2022 13:26-0500 Body mass index (BMI) [Ratio] 23.3 kg/m2 No Primary Care Physician [facility] 07-28-2022 13:26-0500 Body weight 66.73 kg No Primary Care Physician [facility] 07-28-2022 13:26-0500 Diastolic blood pressure 64 mm[Hg] No Primary Care Physician [facility] 07-28-2022 13:26-0500 Systolic blood pressure 96 mm[Hg] No Primary Care Physician [facility] 06-20-2022 15:45-0500 Body mass index (BMI) [Ratio] 22.2 kg/m2 No Primary Care Physician [facility] 06-20-2022 15:45-0500 Body weight 63.5 kg No Primary Care Physician [facility] 06-20-2022 15:45-0500 Diastolic blood pressure 72 mm[Hg] No Primary Care Physician [facility] 06-20-2022 15:45-0500 Systolic blood pressure 98 mm[Hg] No Primary Care Physician [facility] 05-22-2022 15:50-0400 Body height 168.91 cm No Primary Care Physician [facility] Work Phone: 05-22-2022 15:48-0400 Body mass index (BMI) [Ratio] 22.1 kg/m2 No Primary Care Physician [facility] 05-22-2022 15:48-0400 Body weight 63.04 kg No Primary Care Physician [facility] 05-22-2022 15:48-0400 Diastolic blood pressure 76 mm[Hg] No Primary Care Physician [facility] 05-22-2022 15:48-0400 Systolic blood pressure 124 mm[Hg] No Primary Care Physician [facility] Encounters Encounter Date Encounter Type Care Provider Facility Start: 02-09-2023 ambulatory No Primary Car e Physician Facility:[facility] Start: 01-01-2023 ambulatory No Primary Car e Physician Facility:[facility] Start: 12-28-2022 ambulatory No Primary Car e Physician Facility:[facility] Start: 12-28-2022 End: 12-29-2022 Evaluation and management of inpatient No Primary Care Physician Facility:[facility] Start: 12-26-2022 End: 12-26-2022 ambulatory No Primary Care Physician [facility] Start: 12-26-2022 ambulatory No Primary Car e Physician Facility:[facility] Start: 12-22-2022 End: 12-22-2022 ambulatory No Primary Care Physician [facility] Work Phone: Start: 12-22-2022 End: 12-22-2022 Patient encounter procedure No Primary Care Physician [facility] Start: 12-19-2022 End: 12-19-2022 ambulatory No Primary Care Physician [facility] Start: 12-19-2022 End: 12-19-2022 Patient encounter procedure No Primary Care Physician [facility] [place] Start: 12-12-2022 End: 12-12-2022 ambulatory No Primary Care Physician [facility] Start: 12-12-2022 End: 12-12-2022 Patient encounter procedure No Primary Care Physician [facility] Start: 12-05-2022 End: 12-05-2022 Patient encounter procedure No Primary Care Physician [facility], Specimen Start: 12-05-2022 End: 12-05-2022 Patient encounter procedure No Primary Care Physician [facility] [place] Start: 12-05-2022 End: 12-05-2022 ambulatory No Primary Care Physician Facility:[facility] Start: 11-19-2022 End: 11-19-2022 ambulatory No Primary Care Physician [facility] Start: 11-19-2022 End: 11-19-2022 Patient encounter procedure No Primary Care Physician [facility] [place] Start: 11-03-2022 ambulatory No Primary Car e Physician Facility[facility] Start: 10-20-2022 End: 10-20-2022 ambulatory No Primary Care Physician [facility] Start: 10-20-2022 End: 10-20-2022 Patient encounter procedure No Primary Care Physician [facility] Start: 10-10-2022 End: 10-10-2022 ambulatory No Primary Care Physician [facility] Start: 10-10-2022 End: 10-10-2022 Patient encounter procedure No Primary Care Physician [facility] Start: 10-10-2022 End: 10-10-2022 ambulatory No Primary Care Physician [facility] Work Phone: Start: 10-10-2022 End: 10-10-2022 Patient encounter procedure No Primary Care Physician [facility] Start: 09-12-2022 End: 09-12-2022 ambulatory No Primary Care Physician [facility] Start: 09-12-2022 End: 09-12-2022 Patient encounter procedure No Primary Care Physician [facility] Start: 08-15-2022 End: 08-15-2022 ambulatory No Primary Care Physician [facility] Start: 08-15-2022 End: 08-15-2022 Patient encounter procedure No Primary Care Physician [facility] Start: 08-08-2022 End: 08-08-2022 ambulatory No Primary Care Physician [facility] Work Phone: Start: 08-08-2022 End: 08-08-2022 Patient encounter procedure No Primary Care Physician [facility] Ul[facility]ound Start: 07-28-2022 End: 07-28-2022 ambulatory No Primary Care Physician [facility] Start: 07-28-2022 End: 07-28-2022 Patient encounter procedure No Primary Care Physician [facility] Start: 06-20-2022 End: 06-20-2022 ambulatory No Primary Care Physician [facility] Start: 06-20-2022 End: 06-20-2022 Patient encounter procedure No Primary Care Physician [facility] Start: 06-09-2022 End: 06-09-2022 ambulatory No Primary Care Physician [facility] Work Phone: Start: 06-09-2022 End: 06-09-2022 Patient encounter procedure No Primary Care Physician [facility] Start: 05-22-2022 End: 05-22-2022 Patient encounter procedure No Primary Care Physician [facility], Specimen Start: 05-22-2022 End: 05-22-2022 Patient encounter procedure No Primary Care Physician [facility] [place] Start: 05-22-2022 End: 05-22-2022 ambulatory No Primary Care Physician [facility] Work Phone: Start: 08-26-2018 End: 08-26-2018 Patient encounter procedure PEACE Balderas NATALIACHANCE [facility] Start: 08-02-2018 Patient encounter procedure NASRA Reyes MADHAVI [facility] Procedures Date Procedure Procedure Detail Performing Clinician Start: 08-08-2022 Transvaginal obstetr ic ultrasonography No Primary Care Physician Start: 08-08-2022 anatomy study No Primary Care Physician Group B Streptococcu s Culture No Primary Care Physician Urine culture No Primary Car e Physician Urine culture No Primary Car e Physician Plan of Treatment Date Care Activity Detail Author Start: 12-22-2022 Ultrasound scan for growth [facility] Start: 12-22-2022 Nonstress test [facility] Start: 12-22-2022 Obstetric monitoring [facility] Start: 12-22-2022 Vital signs measurements [facility] Start: 12-22-2022 [facility] Start: 12-22-2022 Patient discharge [facility] Start: 05-22-2022 Chlamydia deoxyribonucleic acid detection [facility] Work Phone: CBC W Auto Different ial panel - Blood [facility] Work Phone: Hepatitis B surface antigen measurement [facility] Work Phone: Hepatitis C antibody measurement [facility] Work Phone: HIV 1+2 Ab+HIV1 p24 Ag [Presence] in Serum or Plasma by Immunoassay [facility] Work Phone: Neisseria gonorrhoea e rRNA [Presence] in Unspecified specimen by FERNANDO with probe detection [facility] Work Phone: Patient Education ED False Labor OB Triage: Return to Hospital or Notify Physician if you Experience: [facility] Work Phone: Patient referral [facility] Work Phone: PCR test for Chlamyd ia trachomatis [facility] Work Phone: Rubella IgG measurement [facility] Work Phone: Treponema sp Ab [Pre sence] in Serum [facility] Work Phone: [facility] Immunizations Immunization Date Immunization Notes Care Provider Fa mary ellen 10-15-2018 tetanus toxoid, redu ernesto diphtheria toxoid, and acellular pertussis vaccine, adsorbed No Primary Care Physician [facility] Payers Date Payer Category Payer Self-pay [id number] 2022 Unknown [id number] 1990 Unknown [id number] 2.16.8 40.1.660749.3.579.2.479 1990 Unknown [id number] 2.16.8 40.1.320585.3.579.2.479 Unknown [id number] Unknown [facility] [id number] Unknown [id number] 2.16.8 40.1.966762.3.579.2.462 Unknown [id number] 2.16.8 40.1.639904.3.579.2.462 Unknown [id number] 2.16.8 40.1.393759.3.579.2.462 Unknown [id number] 2.16.8 40.1.933816.3.579.2.462 Unknown [id number] 2.16.8 40.1.280069.3.579.2.462 Unknown [id number] 2.16.8 40.1.497043.3.579.2.462 Unknown [id number] 2.16.8 40.1.752286.3.579.2.462 Unknown [id number] 2.16.8 40.1.900058.3.579.2.462 Unknown [id number] 2.16.8 40.1.240494.3.579.2.462 Unknown [id number] 2.16.8 40.1.606233.3.579.2.462 Unknown [id number] 2.16.8 40.1.563933.3.579.2.462 Unknown [id number] 2.16.8 40.1.694403.3.579.2.462 Unknown [id number] 2.16.8 40.1.822284.3.579.2.462 Unknown [id number] 2.16.8 40.1.473903.3.579.2.462 Unknown [id number] 2.16.8 40.1.094084.3.579.2.462 Unknown [id number] 2.16.8 40.1.399181.3.579.2.462 Unknown [id number] 2.16.8 40.1.935125.3.579.2.462 Unknown [id number] 2.16.8 40.1.269678.3.579.2.462 Unknown [id number] 2.16.8 40.1.934701.3.579.2.462 Unknown [id number] 2.16.8 40.1.381783.3.579.2.462 Unknown [id number] 2.16.8 40.1.413638.3.579.2.462 Unknown [id number] 2.16.8 40.1.225103.3.579.2.462 Unknown [id number] 2.16.8 40.1.886045.3.579.2.462 Unknown [id number] 2.16.8 40.1.083988.3.579.2.462 Unknown [id number] 2.16.8 40.1.354173.3.579.2.462 Unknown [id number] 2.16.8 40.1.160931.3.579.2.462 Social History Date Type Detail Facility Start: 05-22-2022 End: 12-19-2022 Tobacco smoking status NDIS Unknown if ever smoked [facility] Start: 01-05-2019 None [facility] Start: 1990 Sex Assigned At Female W [facility] Evaluation note Note Date & Type Note Facility Evaluation note Diagnosis Onset Date Acute left otitis media acut e acute Supervision of normal acute Vaginal delivery [facility] Work Phone: Evaluation note Note Date & Type Note Facility Evaluation note Diagnosis Onset Date acute Supervision of normal acute acute Supervision of normal acute acute Supervision of normal acute acute Supervision of normal [facility] Work Phone: Evaluation note Note Date & Type Note Facility Evaluation note Diagnosis Onset Date acute Supervision of normal acute acute Supervision of normal acute acute Supervision of normal acute acute Supervision of normal acute acute Supervision of normal [facility] Work Phone: Evaluation note Note Date & Type Note Facility Evaluation note Diagnosis Onset Date acute Supervision of normal acute acute Supervision of normal acute acute Supervision of normal acute acute Supervision of normal acute acute Supervision of normal acute acute Supervision of normal acute acute Supervision of normal acute Uterine size-date discrepanc y, third trimester [facility] Work Phone: Summary Purpose Family History No Family History Records FoundNo Family History Records Found Advance Directives No Advanced Directives Records Found Advance Directive Response Recorded Date/ Time Living Will Yes January 28, 2021 6:07am Power of Cook Apprentice Yes January 28 6:07am Advance Directive Response Recorded Date/ Time Living Will Yes January 28, 2021 7:07am Power of Cook Apprentice Yes January 28 7:07am Chief Complaint and Reason for Visit Chief Complaint NEW OB LMP ? Reason for Visit Acute left otitis me micheal Supervision of normal Vaginal delivery Chief Complaint NEW OB LMP ? 12w est ob 16w R/S from 07/18 20 WEEK ANATOMY est ob 20w Reason for Visit Supervision of normal Supervision of normal Supervision of normal Supervision of normal Chief Complaint 12w est ob 16w R/S from 07/18 20 WEEK ANATOMY est ob 20w est ob 24w E ORDER est ob 28w Reason for Visit Supervision of normal Supervision of normal Supervision of normal Supervision of normal Supervision of normal Chief Complaint est ob 24w E ORDER est ob 28w est ob 30w est ob 34w est 36w est ob 37w est ob 38w R/O LABOR Reason for Visit Supervision of normal Supervision of normal Supervision of normal Supervision of normal Supervision of normal Supervision of normal Supervision of normal Uterine size-date discrepancy, third trimester Additional Source Comments INFORMATION SOURCE (unrecogn ized section and content) DATE CREATED AUTHOR 09/08/2018 [facility] DATE CREATED AUTHOR AUTHOR'S ORGANIZ ATION 01/30/2023 [facility] Goals (unrecognized section and content) Goals may be documented in a n alternate sectionGoals may be documented in an alternate sectionGoals may be documented in an alternate sectionGoals may be documented in an alternate sectionGoals may be documented in an alternate section Care Teams (unrecognized sec tion and content) Team Status: Active Member Role Status Dates Dr. Rob Randhawa MD Family Provider Active No Primary Care Physician Primary Care Provider Active Team Status: Inactive Member Role Status Dates No Primary Care Physician Primary Care Provider, Refer ring Provider Active Dr. Nasra Che DO Attending Provider Activ e Team Status: Inactive Member Role Status Dates No Primary Care Physician Primary Care Provider, Refer ring Provider Active Amanda Valdez [employer], [employer]-C Attending Provider Active Team Status: Inactive Member Role Status Dates No Primary Care Physician Primary Care Provider Active Dr. Nasra Che DO Attending Provider Activ e Team Status: Inactive Member Role Status Dates No Primary Care Physician Primary Care Provider Active Dr. Nasra Che DO Attending Provider, Refe rring Provider Active Team Status: Inactive Member Role Status Dates No Primary Care Physician Primary Care Provider, Refer ring Provider Active Dr. Peace Wagoner MD Attending Provider Active Team Status: Inactive Member Role Status Dates No Primary Care Physician Primary Care Provider Active Dr. Peace Wagoner MD Attending Provider Active Team Status: Inactive Member Role Status Dates No Primary Care Physician Primary Care Provider Active Dr. Peace Wagoner MD Attending Provider, Referr ing Provider Active FOR RECORDS PERTAINING TO PATIENTS WHO ARE OR HAVE BEEN ENROLLED IN A CHEMICAL DEPENDENCY/SUBSTANCEABUSE PROGRAM, SOME INFORMATION MAY BE OMITTED. This clinical summary was aggregated from multiple sources. Caution should be exercised in using it in the provision of clinical care. This summary normalizes information from multiple sources, and as a consequence, information in this document may materially change the coding, format and clinical context of patient data. In addition, data may be omitted in some cases. CLINICAL DECISIONS SHOULD BE BASED ON THE PRIMARY CLINICAL RECORDS. [employer] provides no warranty or guarantee of the accuracy or completeness of information in this document.
[2025-02-13 11:29] LABS: Free T3 3.3 pg/mL (2.18-3.98)
== END | disposition home or self-care (01) ==
LOC: MTLAB 07:06
DX: E07.9 Disorder of thyroid, unspecified (principal)
CPT/HCPCS: 36415; 84439; 84443; 84481; 86376